=== PATIENT | female | born 1955 | race Caucasian/White ===

== ENCOUNTER 2021-06-09 12:50 | Inpatient (IN) ==
[2021-06-09 13:49] LABS: Appearance Urine Clear (Clear); Bacteria Urine Automated Negative (Negative); Bilirubin Urine Negative (Negative); Blood Urine Negative (Negative); Color Urine Yellow; Epithelial Cell Urine Auto >30 /lpf (0-5); Glucose Urine UA Negative (Negative); Ketones Urine Negative (Negative); Leukocyte Esterase Urine 3+ (Negative); Nitrite Urine Negative (Negative); Protein Urine Negative (Negative); RBC Urine Automated 0-4 /hpf (0-4); Specific Gravity Urine 1.009 (1.000-1.030); Urobilinogen Urine Negative (Negative); WBC Urine Automated >30 /hpf (0-5); pH Urine 5.5 (4.5-7.5)
[2021-06-09 14:06] LABS: Amphetamines+Metham, Urine Neg (Neg); Barbiturates, Urine Neg (Neg); Benzodiazepine, Urine Neg (Neg); Cocaine, Urine Neg (Neg); MDMA (Ecstacy), Urine Neg (Neg); Methadone, Urine Neg (Neg); Opiate, Urine Neg (Neg); Phencyclidine, Urine Neg (Neg)
--- NOTE | 2021-06-09 14:13 | XRay Report ---
XR chest 1V portable CLINICAL HISTORY: weakness TECHNIQUE: Single frontal radiograph of the chest was obtained. Comparison: Comparison is made to chest one view 04/21/2021 FINDINGS: No lines and tubes are seen. The cardiomediastinal silhouette is normal. The lungs are clear. No evid ence of pleural effusion or pneumothorax. IMPRESSION: No acute chest disease. ACT 112: Negative or not required by law. Electronically signed by: Tyrese Cruz M.D. 06/09/2021 2:12 PM
[2021-06-09 14:18] LABS: Basophils # (auto) 0.01 K/uL (0-0.2); Basophils % (auto) 0.2 %; Eosinophils # (auto) 0.09 K/uL (0-0.5); Eosinophils % (auto) 1.5 %; Hematocrit (blood only) 40.4 % (37-47); Immature Granulocytes # (auto) 0.01 K/uL (0.00-0.02); Immature Granulocytes % (auto) 0.2 %; Lymphocytes # (auto) 0.95 K/uL (1.2-3.4); Lymphocytes % (auto) 16.2 %; Mean Corpuscular Hemoglobin 30.6 pg (25-34); Mean Corpuscular Hgb Conc 34.7 g/dL (32-36); Mean Corpuscular Volume 88.4 fL (80-100); Mean Platelet Volume 11.7 fL (7.4-10.4); Monocytes # (auto) 0.27 K/uL (0.11-0.59); Monocytes % (auto) 4.6 %; Neutrophils # (auto) 4.55 K/uL (1.4-6.5); Neutrophils % (auto) 77.3 %; Platelet Count 115 K/uL (130-400); RDW Coefficient of Variation 12.6 % (11.5-14.5); RDW Standard Deviation 40.7 fL (36.4-46.3); Red Blood Count 4.57 M/uL (4.2-5.4); White Blood Count 5.88 K/uL (4.8-10.8)
--- NOTE | 2021-06-09 14:27 | Emergency Department Note ---
Impression & Plan Psychosis, Altered mental status, Hallucination, visual, Acute UTI (urinary tract infection), Hypokalemia ED Provider Note NAME: HOLA DUENAS AGE: 66 SEX: F : 1955 ARRIVES VIA: Police Cruiser INFORMANT: Patient, the police ED PROVIDER(S): Niels Yancey DO CHIEF COMPLAINT: Hallucinations HPI: The patient is a 66-year-old female who presented to emergency department for mental health evaluation. The patient was having hallucinations and thought that she was seeing relatives that were . The patient herself does not think that she is seeing anything abnormal. The patient states that she was at home when she saw somebody in the room. She describes an episode between 2 people that were in her room but they were not there. Somehow the police got involved as well as crisis. The patient was sent to the emergency department for further evaluation. The patient's son is being contacted by the case loader operator for further information. The patient herself denies having any other symptoms. She denies having any weakness or chest pain. She denies having any nausea or vomiting. She has had no recent traveling. She said no fevers. She was seen in our facility recently for similar complaints. I did review that chart. She states that she takes no outpatient medications. Sometimes she takes Anacin for headaches. ROS: See above HPI for pertinent positives & negatives. A total of 10 systems reviewed and were otherwise negative. PAST MEDICAL HISTORY: See Below PAST SURGICAL HISTORY: See Below FAMILY HISTORY: See Below SOCIAL HISTORY: See Below HOME MEDICATIONS: See Below ALLERGIES: See Below VITALS: See Below PHYSICAL EXAMINATION: GENERAL: The patient is awake and alert. The patient is mildly anxious appearing but overall comfortable. EYES: The conjunctivae are clear. The pupils are round and reactive. EARS, NOSE, MOUTH AND THROAT: The nose is without any evidence of any deformity. Poor dentition was noted. NECK: The neck is nontender and supple. RESPIRATORY: Normal respiratory effort is noted there is no evidence of wheezing rhonchi or rales CARDIOVASCULAR: Regular rate and rhythm noted there no murmurs rubs or gallops normal S1 normal S2. GASTROINTESTINAL: The abdomen is soft. Abdomen is nontender. MUSCULOSKELETAL/EXTREMITIES: There is no evidence of gross deformity full range of motion is noted in the hips and shoulders. SKIN: There is no obvious evidence of any rash. There are no petechiae, pallor or cyanosis noted. NEUROLOGIC: Patient is awake alert and oriented x3 strength is symmetric patellar reflexes are 2+ bilaterally PSYCH: The patient is awake and alert. The patient makes good eye contact overall. She does have a very tangential thought process. The patient is currently denying any suicidal homicidal ideation. MEDICAL DECISION MAKING: The patient is a 66-year-old female who presented to the emergency department for an evaluation of auditory hallucinations. The patient lives with her son in a local hotel. The patient was seen in our facility recently after a fall but also for similar complaints as today including visual hallucinations. The patient was felt to be mental health patient. Given her age and no significant history further medical clearance was obtained. I discussed the patient's laboratory and radiographic studies with her. She was found to have signs of u rinary tract infection as well as hypokalemia. Those conditions were treated in the emergency department. She was also treated with a small dose of Ativan. The patient has very poor insight into her overall condition. For this reason a 302 petition was filled out and at this time the delegate is evaluating the 302. The patient likely is not a good candidate for outpatient therapy at this time and less significant follow-up can be ensured. The patient currently does not take any medications. The patient was signed out to Dr. Fam at change of shift. Please see her note for continuation of care and further disposition. Triage Nursing notes reviewed. Prior medical records reviewed Vital Signs: reviewed and remarkable for elevated blood pressure Differential diagnosis: Mood disorder, infection, hypoglycemia, electrolyte abnormalities, cardiac sources, intracerebral event, toxicologic, trauma, neurologic, as well as other pathologies. ER treatment provided: See below Diagnostics interpreted by me: ECG: EKG was obtained in the emergency department. My interpretation is normal sinus rhythm at 61 bpm. There is no ectopy. Right bundle branch block pattern was noted. This was compared to a tracing from April 21, 2021. No changes were noted. Laboratory studies: As stated above and show below. Imaging studies: See below Consultation(s): none Past Med/Surg History Medical History Hallucination, visual Social History Smoking Status: Never smoker Preferred Language: Cymro Feels Safe at Home: Yes Allergies Allergies Allergy/AdvReac Type Severity Reaction Status Date / Time No Known Allergies Allergy Mild Unverified 04/22/21 11:07 Home Meds Home Medications Medication Instructions Recorded Confirmed aspirin-caffeine 400 mg-32 mg 1 tab PO Q6H PRN 06/09/21 06/09/21 tablet (Anacin) loratadine 10 mg tablet (Claritin) 10 mg PO DAILY 06/09/21 06/09/21 Results & Data (ED) Vital Signs Vital Signs - 24 hr 06/09/21 13:20 06/09/21 19:25 Temperature 36.8 C Temperature Source Oral Pulse Rate 86 Pulse Rate [Finger] 80 Pulse Rhythm Regular Pulse Strength Normal Respiratory Rate 20 20 Respiratory Effort / Characteristics Non-Labored Spontaneous Non-Labored Spontaneous Respiratory Depth Normal Respiratory Pattern Regular Blood Pressure 174/104 H Blood Pressure [Right Arm] 188/94 H Blood Pressure Mean 127 Blood Pressure Mean [Right Arm] 125 Blood Pressure Position Sitting Blood Pressure Position [Right Arm] Sitting Pulse Oximetry 99 98 Oxygen Delivery Method Room Air Room Air Sepsis Recent Fever Within 48 Hours No Sepsis New/Unexplained Change in Mental Status No Sepsis Action Taken by Nursing No Action Required Home Medications Current Medication List: was personally reviewed by me Laboratory Data Attestation: I reviewed the patient's lab results. Result diagrams: 06/09/21 14:00 06/09/21 14:00 Lab Results 06/09/21 06/09/21 06/09/21 Range/Units 13:15 13:15 14:00 WBC 5.88 (4.8-10.8) K/uL RBC 4.57 (4.2-5.4) M/uL Hgb 14.0 (12.0-16.0) g/dL Hct 40.4 (37-47) % MCV 88.4 (80-100) fL MCH 30.6 (25-34) pg MCHC 34.7 (32-36) g/dL RDW Std Deviation 40.7 (36.4-46.3) fL RDW Coeff of Duong 12.6 (11.5-14.5) % Plt Count 115 L (130-400) K/uL MPV 11.7 H (7.4-10.4) fL Immature Gran % (Auto) 0.2 % Neut % (Auto) 77.3 % Lymph % (Auto) 16.2 % Howell % (Auto) 4.6 % Eos % (Auto) 1.5 % Baso % (Auto) 0.2 % Neut # (Auto) 4.55 (1.4-6.5) K/uL Lymph # (Auto) 0.95 L (1.2-3.4) K/uL Howell # (Auto) 0.27 (0.11-0.59) K/uL Eos # (Auto) 0.09 (0-0.5) K/uL Baso # (Auto) 0.01 (0-0.2) K/uL Immature Gran # (Auto) 0.01 (0.00-0.02) K/uL PT (9.0-12.0) Seconds INR (0.9-1.1) APTT (21.0-31.0) Seconds PTT Ratio Sodium (136-145) mmol/L Potassium (3.5-5.1) mmol/L Chloride (98-107) mmol/L Carbon Dioxide (21-32) mmol/L Anion Gap (3-11) BUN (7-18) mg/dl Creatinine (0.6-1.2) mg/dl Est Cr Clr Drug Dosing ml/min Est GFR ( Amer) ml/min Est GFR (Non-Af Amer) ml/min BUN/Creatinine Ratio (10-20) Glucose (70-99) mg/dl Calcium (8.5-10.1) mg/dl Magnesium (1.8-2.4) mg/dl Total Bilirubin (0.2-1) mg/dl AST (15-37) U/L ALT (12-78) U/L Alkaline Phosphatase (45-117) U/L Total Creatine Kinase (26-192) U/L Troponin I (0-0.045) ng/ml Total Protein (6.4-8.2) gm/dl Albumin (3.4-5.0) gm/dl Globulin (2.5-4.0) gm/dl Albumin/Globulin Ratio (0.9-2) TSH (0.300-4.500) uIu/ml Urine Color Yellow Urine Appearance Clear (Clear) Urine pH 5.5 (4.5-7.5) Ur Specific [place] 1.009 (1.000-1.030) Urine Protein Negative (Negative) Urine Glucose (UA) Negative (Negative) Urine Ketones Negative (Negative) Urine Blood Negative (Negative) Urine Nitrite Negative (Negative) Urine Bilirubin Negative (Negative) Urine Urobilinogen Negative (Negative) Ur Leukocyte Esterase 3+ H (Negative) Urine WBC (Auto) >30 H (0-5) /hpf Urine RBC (Auto) 0-4 (0-4) /hpf U Hyaline Cast (Auto) 1-5 (0-5) /lpf U Epithel Cells (Auto) >30 H (0-5) /lpf Urine Bacteria (Auto) Negative (Negative) Urine Opiates Screen Neg (Neg) Ur Methadone, Qual Neg (Neg) Urine Barbiturates Neg (Neg) Ur Phencyclidine (PCP) Neg (Neg) U Amphetamin/Meth Scrn Neg (Neg) MDMA (Ecstasy) Screen Neg (Neg) U Benzodiazepines Scrn Neg (Neg) Ur Cocaine Metabolite Neg (Neg) U Marijuana (THC) Screen Neg (Neg) Ethyl Alcohol mg/dL (0-3) mg/dl SARS-CoV-2, RNA, NAAT (NEGATIVE) 06/09/21 06/09/21 06/09/21 Range/Units 14:00 14:00 14:00 WBC (4.8-10.8) K/uL RBC (4.2-5.4) M/uL Hgb (12.0-16.0) g/dL Hct (37-47) % MCV (80-100) fL MCH (25-34) pg MCHC (32-36) g/dL RDW Std Deviation (36.4-46.3) fL RDW Coeff of Duong (11.5-14.5) % Plt Count (130-400) K/uL MPV (7.4-10.4) fL Immature Gran % (Auto) % Neut % (Auto) % Lymph % (Auto) % Howell % (Auto) % Eos % (Auto) % Baso % (Auto) % Neut # (Auto) (1.4-6.5) K/uL Lymph # (Auto) (1.2-3.4) K/uL Howell # (Auto) (0.11-0.59) K/uL Eos # (Auto) (0-0.5) K/uL Baso # (Auto) (0-0.2) K/uL Immature Gran # (Auto) (0.00-0.02) K/uL PT 10.8 (9.0-12.0) Seconds INR 1.1 (0.9-1.1) APTT 26.2 (21.0-31.0) Seconds PTT Ratio 1.0 Sodium 140 (136-145) mmol/L Potassium 3.1 L (3.5-5.1) mmol/L Chloride 110 H (98-107) mmol/L Carbon Dioxide 24 (21-32) mmol/L Anion Gap 6.0 (3-11) BUN 7 (7-18) mg/dl Creatinine 0.90 (0.6-1.2) mg/dl Est Cr Clr Drug Dosing 52.6 ml/min Est GFR ( Amer) 76.1 ml/min Est GFR (Non-Af Amer) 65.7 ml/min BUN/Creatinine Ratio 7.9 L (10-20) Glucose 113 H (70-99) mg/dl Calcium 9.7 (8.5-10.1) mg/dl Magnesium 2.0 (1.8-2.4) mg/dl Total Bilirubin 0.5 (0.2-1) mg/dl AST 10 L (15-37) U/L ALT 14 (12-78) U/L Alkaline Phosphatase 70 (45-117) U/L Total Creatine Kinase 52 (26-192) U/L Troponin I < 0.015 (0-0.045) ng/ml Total Protein 7.5 (6.4-8.2) gm/dl Albumin 3.7 (3.4-5.0) gm/dl Globulin 3.8 (2.5-4.0) gm/dl Albumin/Globulin Ratio 1.0 (0.9-2) TSH 1.030 (0.300-4.500) uIu/ml Urine Color Urine Appearance (Clear) Urine pH (4.5-7.5) Ur Specific [place] (1.000-1.030) Urine Protein (Negative) Urine Glucose (UA) (Negative) Urine Ketones (Negative) Urine Blood (Negative) Urine Nitrite (Negative) Urine Bilirubin (Negative) Urine Urobilinogen (Negative) Ur Leukocyte Esterase (Negative) Urine WBC (Auto) (0-5) /hpf Urine RBC (Auto) (0-4) /hpf U Hyaline Cast (Auto) (0-5) /lpf U Epithel Cells (Auto) (0-5) /lpf Urine Bacteria (Auto) (Negative) Urine Opiates Screen (Neg) Ur Methadone, Qual (Neg) Urine Barbiturates (Neg) Ur Phencyclidine (PCP) (Neg) U Amphetamin/Meth Scrn (Neg) MDMA (Ecstasy) Screen (Neg) U Benzodiazepines Scrn (Neg) Ur Cocaine Metabolite (Neg) U Marijuana (THC) Screen (Neg) Ethyl Alcohol mg/dL < 3.0 (0-3) mg/dl SARS-CoV-2, RNA, NAAT (NEGATIVE) 06/09/21 Range/Units 18:07 WBC (4.8-10.8) K/uL RBC (4.2-5.4) M/uL Hgb (12.0-16.0) g/dL Hct (37-47) % MCV (80-100) fL MCH (25-34) pg MCHC (32-36) g/dL RDW Std Deviation (36.4-46.3) fL RDW Coeff of Duong (11.5-14.5) % Plt Count (130-400) K/uL MPV (7.4-10.4) fL Immature Gran % (Auto) % Neut % (Auto) % Lymph % (Auto) % Howell % (Auto) % Eos % (Auto) % Baso % (Auto) % Neut # (Auto) (1.4-6.5) K/uL Lymph # (Auto) (1.2-3.4) K/uL Howell # (Auto) (0.11-0.59) K/uL Eos # (Auto) (0-0.5) K/uL Baso # (Auto) (0-0.2) K/uL Immature Gran # (Auto) (0.00-0.02) K/uL PT (9.0-12.0) Seconds INR (0.9-1.1) APTT (21.0-31.0) Seconds PTT Ratio Sodium (136-145) mmol/L Potassium (3.5-5.1) mmol/L Chloride (98-107) mmol/L Carbon Dioxide (21-32) mmol/L Anion Gap (3-11) BUN (7-18) mg/dl Creatinine (0.6-1.2) mg/dl Est Cr Clr Drug Dosing ml/min Est GFR ( Amer) ml/min Est GFR (Non-Af Amer) ml/min BUN/Creatinine Ratio (10-20) Glucose (70-99) mg/dl Calcium (8.5-10.1) mg/dl Magnesium (1.8-2.4) mg/dl Total Bilirubin (0.2-1) mg/dl AST (15-37) U/L ALT (12-78) U/L Alkaline Phosphatase (45-117) U/L Total Creatine Kinase (26-192) U/L Troponin I (0-0.045) ng/ml Total Protein (6.4-8.2) gm/dl Albumin (3.4-5.0) gm/dl Globulin (2.5-4.0) gm/dl Albumin/Globulin Ratio (0.9-2) TSH (0.300-4.500) uIu/ml Urine Color Urine Appearance (Clear) Urine pH (4.5-7.5) Ur Specific [place] (1.000-1.030) Urine Protein (Negative) Urine Glucose (UA) (Negative) Urine Ketones (Negative) Urine Blood (Negative) Urine Nitrite (Negative) Urine Bilirubin (Negative) Urine Urobilinogen (Negative) Ur Leukocyte Esterase (Negative) Urine WBC (Auto) (0-5) /hpf Urine RBC (Auto) (0-4) /hpf U Hyaline Cast (Auto) (0-5) /lpf U Epithel Cells (Auto) (0-5) /lpf Urine Bacteria (Auto) (Negative) Urine Opiates Screen (Neg) Ur Methadone, Qual (Neg) Urine Barbiturates (Neg) Ur Phencyclidine (PCP) (Neg) U Amphetamin/Meth Scrn (Neg) MDMA (Ecstasy) Screen (Neg) U Benzodiazepines Scrn (Neg) Ur Cocaine Metabolite (Neg) U Marijuana (THC) Screen (Neg) Ethyl Alcohol mg/dL (0-3) mg/dl SARS-CoV-2, RNA, NAAT NEGATIVE (NEGATIVE) Administered Medications Discontinued Medications Cefdinir (Cefdinir 300 Mg Cap) 600 mg PO ONE STA Stop: 06/09/21 15:22 Last Admin: 06/09/21 16:08 Dose: 600 mg Documented by: [id number] Lorazepam (Lorazepam 1 Mg Tab) 1 mg PO NOW STA Stop: 06/09/21 18:50 Last Admin: 06/09/21 19:07 Dose: 1 mg Documented by: [id number] Potassium Chloride (Potassium Chloride 10 Meq Tabcr) 20 meq PO NOW STA Stop: 06/09/21 15:22 Last Admin: 06/09/21 16:08 Dose: 20 meq Documented by: [id number] Imaging Data Radiologist's Impression: Chest X-Ray 06/09/21 13:25 XR chest 1V portable CLINICAL HISTORY: weakness TECHNIQUE: Single frontal radiograph of the chest was obtained. Comparison: Comparison is made to chest one view 04/21/2021 FINDINGS: No lines and tubes are seen. The cardiomediastinal silhouette is normal. The lungs are clear. No evidence of pleural effusion or pneumothorax. IMPRESSION: No acute chest disease. ACT 112: Negative or not required by law. Electronically signed by: Tyrese Cruz M.D. 06/09/2021 2:[address] 06/09/21 13:25 CT SCAN OF THE BRAIN WITHOUT IV CONTRAST CLINICAL HISTORY: Change in mental status COMPARISON STUDY: CT of the brain dated 04/22/2021. TECHNIQUE: Unenhanced axial CT scan of the brain is performed from the vertex to the skull base. A dose lowering technique was utilized adhering to the principles of ALARA. CT DOSE: 638.56 mGycm FINDINGS: Brain parenchyma: There is minimal microangiopathic change. There is no hemorrhage, mass effect, or evidence of acute territorial ischemia by CT criteria. Bird-white matter differentiation is preserved. No extra-axial fluid collection is seen. Ventricles, sulci, cisterns: Normal in configuration. Intracranial vasculature: There is atherosclerotic calcification of the cavernous carotid and vertebral arteries. Calvarium: Unremarkable. Sinuses and mastoids: The visualized paranasal sinuses are clear. The mastoid air cells are well pneumatized. Orbits: The bony orbits are grossly intact. IMPRESSION: There is no hemorrhage, mass effect, or evidence of acute territo rial ischemia by CT criteria. ACT 112: Negative or not required by law. Electronically signed by: Perfecto Herrera M.D. 06/09/2021 3:15 PM Discharge Plan Visit Data Chief Complaint: Mental Health Evaluation Stated Complaint: MENTAL HEALTH EVAL ED Provider: Niels Yancey Discharge Problem: Psychosis, Altered mental status, Hallucination, visual, Acute UTI (urinary tract infection), Hypokalemia Patient Disposition: Still a Patient Forms Stand Alone Forms: My [facility] [employer], Suicide Prevention Resources Prescriptions Prescriptions: No Action loratadine [Claritin] 10 mg Tablet 10 mg PO DAILY RF: 0 Anacin 400-32 mg Tablet 1 tab PO Q6H PRN (Reason: Pain) RF: 0 Referrals Referrals: PCP,NO [Primary Care Provider] - Discharge Problem: Psychosis Qualifiers: Psychosis type: unspecified psychosis type Qualified Code(s): F29 - Unspecified psychosis not due to a substance or known physiological condition Altered mental status Qualifiers: Altered mental status type: unspecified Qualified Code(s): R41.82 - Altered mental status, unspecified
[2021-06-09 14:29] LABS: INR 1.1 (0.9-1.1); Partial Thromboplastin Time 26.2 Seconds (21.0-31.0); Prothrombin Time 10.8 Seconds (9.0-12.0)
[2021-06-09 14:34] LABS: Alanine Aminotransferase 14 U/L (12-78); Albumin Level 3.7 gm/dl (3.4-5.0); Aspartate Aminotransferase 10 U/L (15-37); BUN Creatinine Ratio 7.9 (10-20); Blood Urea Nitrogen 7 mg/dl (7-18); Calcium 9.7 mg/dl (8.5-10.1); Carbon Dioxide 24 mmol/L (21-32); Chloride 110 mmol/L (98-107); Creatinine Clr Calc Pharmacy 52.6 ml/min; Est GFR (African American) 76.1 ml/min; Est GFR (Non-African American) 65.7 ml/min; Glucose 113 mg/dl (70-99); Potassium 3.1 mmol/L (3.5-5.1); Sodium 140 mmol/L (136-145)
[2021-06-09 14:45] LABS: Alkaline Phosphatase 70 U/L (45-117); Bilirubin,Total 0.5 mg/dl (0.2-1); Creatine Kinase 52 U/L (26-192); Globulin 3.8 gm/dl (2.5-4.0); Total Protein 7.5 gm/dl (6.4-8.2); Troponin I < 0.015 ng/ml (0-0.045)
--- NOTE | 2021-06-09 15:16 | CT Scan Report ---
CT SCAN OF THE BRAIN WITHOUT IV CONTRAST CLINICAL HISTORY: Change in mental status COMPARISON STUDY: CT of the brain dated 04/22/2021. TECHNIQUE: Unenhanced axial CT scan of the brain is performed from the vertex to the skull base. A d ose lowering technique was utilized adhering to the principles of ALARA. CT DOSE: 638.56 mGycm FINDINGS: Brain parenchyma: There is minimal microangiopathic change. There is no hemorrhage, mass effect, or e vidence of acute territorial ischemia by CT criteria. Bird-white matter differentiation is preserved. No extra-axial fluid collection is seen. Ventricles, sulci, cisterns: Normal in configuration. Intracranial vasculature: There is atherosclerotic calcification of the cavernous carotid and vertebr al arteries. Calvarium: Unremarkable. Sinuses and mastoids: The visualized paranasal sinuses are clear. The mastoid air cells are well pneu matized. Orbits: The bony orbits are grossly intact. IMPRESSION: There is no hemorrhage, mass effect, or evidence of acute territorial ischemia by CT wally jha. ACT 112: Negative or not required by law. Electronically signed by: Perfecto Herrera M.D. 06/09/2021 3:15 PM
[2021-06-09] MEDS ORDERED: POTASSIUM CHLORIDE 10 MEQ TABCR PO STA (15:21)
[2021-06-09] MEDS ORDERED: CEFDINIR 300 MG CAP PO STA (15:21)
[2021-06-09] MEDS ORDERED: LORazepam 1 MG TAB PO STA (18:49)
[2021-06-09] MEDS ORDERED: amLODIPine BESYLATE 5 MG TAB PO ONE (20:39)
--- NOTE | 2021-06-10 03:01 | Emergency Department Note ---
ED Visit Note Patient signed out to me at change of shift. Please see Dr. Yancey's note for additional information. Patient medically clear at time of signout. Patient was started on cefdinir for urinary tract infection as well as Norvasc for some hypertension. Patient had been given 1 mg of Ativan. Patient was calm and cooperative throughout my shift. Bed search suspended overnight. Patient's next dose of cefdinir was ordered for the morning. Patient signed out to Dr. Sutherland. . : Psychosis Qualifiers: Psychosis type: unspecified psychosis type Qualified Code(s): F29 - Unspecified psychosis not due to a substance or known physiological condition Altered mental status Qualifiers: Altered mental status type: unspecified Qualified Code(s): R41.82 - Altered mental status, unspecified
--- NOTE | 2021-06-10 05:12 | Emergency Department Note ---
ED Visit Note This case was signed out to me at change of shift awaiting bed placement. The bed search was suspended. The patient rested throughout the night. Morning medications were ordered. Case will be signed out to Dr. Hamm . : Psychosis Qualifiers: Psychosis type: unspecified psychosis type Qualified Code(s): F29 - Unspecified psychosis not due to a substance or known physiological condition Altered mental status Qualifiers: Altered mental status type: unspecified Qualified Code(s): R41.82 - Altered mental status, unspecified
[2021-06-10] MEDS ORDERED: CEFDINIR 300 MG CAP PO SCH (08:00)
[2021-06-10] MEDS: amLODIPine BESYLATE 5 MG TAB PO SCH (08:36)
--- NOTE | 2021-06-10 09:34 | Emergency Department Note ---
ED Visit Note Patient previously evaluated with 302 statements and involuntary petitioning is ordered due to hallucinations. Patient was incidentally noted to have urine infections on antibiotics although it appears from records that the hallucinations have been ongoing for some time and worsening. Bed search has been in progress but has been unsuccessful. Continued bed search will continue in the morning. Given the length of her stay psychiatric consultation be ordered for continuity. Signed out pending placement. Patient has been ordered standing cefdinir after discussion with pharmacy. . : Psychosis Qualifiers: Psychosis type: unspecified psychosis type Qualified Code(s): F29 - Unspecified psychosis not due to a substance or known physiological condition Altered mental status Qualifiers: Altered mental status type: unspecified Qualified Code(s): R41.82 - Altered mental status, unspecified
--- NOTE | 2021-06-10 14:51 | Emergency Department Note ---
ED Visit Note The patient was taken in signout from Dr. Hamm at the change of shift. Please see that note for details. The patient was pending evaluation for 302 psychiatric admission. The patient was doing relatively well throughout her evening in the emergency department. She is in started to have some hallucinations of people under her bed and the olea falling in. I did evaluate the patient. She denied any significant pain no headache or chest pain. She ate well. She did have her evening dose of Zyprexa but this was only 2.5 mg. Given the hallucinations and her anxiety the patient was given a dose of Ativan as well as a second 2.5 mg dose of Zyprexa. She had done well with the Ativan and earlier dose of Zyprexa. I did note that her potassium was mildly low and she was given an oral dose of potassium. The ED psychiatric business case analyst did note that the lacey is reviewing her case currently. Her placement is still pending. The patient's case was signed out to Dr. Sutherland at the change of shift. . : Psychosis Qualifiers: Psychosis type: unspecified psychosis type Qualified Code(s): F29 - Unspecified psychosis not due to a substance or known physiological condition Altered mental status Qualifiers: Altered mental status type: unspecified Qualified Code(s): R41.82 - Altered mental status, unspecified
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
--- NOTE | 2021-06-10 18:11 | Electrocardiogram Report ---
Test Reason : Blood Pressure : / mmHG Vent. Rate : 061 BPM Atrial Rate : 061 BPM P-R Int : 164 ms QRS Dur : 122 ms QT Int : 454 ms P-R-T Axes : 079 -29 035 degrees QTc Int : 457 ms Normal sinus rhythm Right bundle branch block Abnormal ECG When compared with ECG of 21-APR-2021 23:31, No significant change was found Confirmed by Bahman Gallo ([id number]) on 06/10/2021 6:10:55 PM Referred By: REFERRED SELF Confirmed By:Bahman Gallo
[2021-06-10] MEDS: CEFDINIR 300 MG CAP PO SCH (20:26)
[2021-06-10] MEDS: OLANZAPINE 2.5 MG TAB PO SCH (20:26)
[2021-06-10] MEDS ORDERED: OLANZAPINE 2.5 MG TAB PO STA (22:31)
[2021-06-10] MEDS ORDERED: LORazepam 1 MG TAB SL STA (22:31)
[2021-06-10] MEDS ORDERED: POTASSIUM CHLORIDE CRTAB 20 MEQ TABCR PO STA (22:32)
--- NOTE | 2021-06-11 00:32 | Emergency Department Note ---
ED Visit Note This case was signed out to me at change of shift awaiting bed placement. The patient rested throughout the night. Her potassium had been low yesterday and it was replaced. The delegate will be called back given the bed search will resume. The case will be signed out to Dr. Connor at change of shift. . : Psychosis Qualifiers: Psychosis type: unspecified psychosis type Qualified Code(s): F29 - Unspecified psychosis not due to a substance or known physiological condition Altered mental status Qualifiers: Altered mental status type: unspecified Qualified Code(s): R41.82 - Altered mental status, unspecified
[2021-06-11] MEDS: amLODIPine BESYLATE 5 MG TAB PO SCH (08:39)
[2021-06-11] MEDS: CEFDINIR 300 MG CAP PO SCH ×2 (08:39→20:41)
[2021-06-11] MEDS ORDERED: OLANZAPINE 2.5 MG TAB PO STA (10:32)
[2021-06-11] MEDS ORDERED: LORazepam 1 MG TAB SL STA (10:32)
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
[2021-06-11 12:03] LABS: Basophils # (auto) 0.03 K/uL (0-0.2); Basophils % (auto) 0.6 %; Eosinophils # (auto) 0.14 K/uL (0-0.5); Eosinophils % (auto) 2.6 %; Hematocrit (blood only) 41.2 % (37-47); Lymphocytes # (auto) 1.03 K/uL (1.2-3.4); Lymphocytes % (auto) 19.4 %; Mean Corpuscular Hemoglobin 30.7 pg (25-34); Mean Corpuscular Volume 90.4 fL (80-100); Mean Platelet Volume 11.7 fL (7.4-10.4); Monocytes # (auto) 0.27 K/uL (0.11-0.59); Monocytes % (auto) 5.1 %; Neutrophils # (auto) 3.84 K/uL (1.4-6.5); Neutrophils % (auto) 72.3 %; Platelet Count 107 K/uL (130-400); RDW Coefficient of Variation 12.5 % (11.5-14.5); Red Blood Count 4.56 M/uL (4.2-5.4); White Blood Count 5.31 K/uL (4.8-10.8)
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
[2021-06-11 12:31] LABS: Albumin Globulin Ratio 0.9 (0.9-2); Albumin Level 3.4 gm/dl (3.4-5.0); BUN Creatinine Ratio 15.9 (10-20); Bilirubin,Total 0.3 mg/dl (0.2-1); Calcium 9.2 mg/dl (8.5-10.1); Creatinine Clr Calc Pharmacy 46.8 ml/min; Est GFR (African American) 66.2 ml/min; Est GFR (Non-African American) 57.2 ml/min; Globulin 3.6 gm/dl (2.5-4.0); Potassium 4.1 mmol/L (3.5-5.1)
[2021-06-11] MEDS ORDERED: diphenhydrAMINE 50 MG/ML VIAL IV ONE (13:03)
[2021-06-11] MEDS ORDERED: diphenhydrAMINE Capsule 25 MG CAP PO ONE (13:14)
[2021-06-11 13:29] LABS: Prothrombin Time 10.5 Seconds (9.0-12.0)
--- NOTE | 2021-06-11 14:10 | XRay Report ---
XR skull <4V CLINICAL HISTORY: pre-MRI TECHNIQUE: 4 views of the skull were obtained. Comparison: None available at the time of this dictation. FINDINGS: No acute fractures are identified. The sinuses are clear. There are no soft tissue abnormal ities. No radiodense foreign body is seen. IMPRESSION: No acute abnormality and no evidence of radiodense foreign body. ACT 112: Negative or not required by law. Electronically signed by: Tyrese Cruz M.D. 06/11/2021 2:09 PM
[2021-06-11 14:14] LABS: Folate (Folic Acid) 5.5 ng/ml (>5.38)
--- NOTE | 2021-06-11 14:15 | XRay Report ---
XR soft tissue neck CLINICAL HISTORY: pre-MRI TECHNIQUE: 2 views of the neck were obtained. Comparison: None available at the time of this dictation. FINDINGS: The airway is patent without evidence of abnormal narrowing. No evidence of radiodense foreign body i s seen. Degenerative changes are seen in the cervical spine. IMPRESSION: Degenerative changes without acute abnormality and in particular no evidence of foreign body. ACT 112: Negative or not required by law. Electronically signed by: Tyrese Cruz M.D. 06/11/2021 2:13 PM
--- NOTE | 2021-06-11 14:55 | Emergency Department Note ---
ED Visit Note I received this patient in signout at the change of shift from Dr. Sutherland, pending a mental health bed search. Patient was evaluated by psychiatry and felt to be suffering from a delirium, less so a psychosis as this has not cleared with olanzapine. She has recommended a medical admission with psychiatric consultation. Patient did receive 1 dose of 2.5 olanzapine and [address] Pedersen has recommended discontinuing the benzodiazepines. [facility] . : Psychosis Qualifiers: Psychosis type: unspecified psychosis type Qualified Code(s): F29 - Unspecified psychosis not due to a substance or known physiological condition Altered mental status Qualifiers: Altered mental status type: unspecified Qualified Code(s): R41.82 - Altered mental status, unspecified
--- NOTE | 2021-06-11 16:21 | Magnetic Resonance Report ---
MR brain wo con CLINICAL HISTORY: delirium TECHNIQUE: Multiplanar and multisequence MR images of the brain were obtained without intravenous con trast. Comparison: Comparison is made to CT head 06/09/2021 FINDINGS: Exam is highly limited due to patient motion. No abnormal restricted diffusion is identified. Ex vacuo ventriculomegaly and sulcal enlargement is n oted compatible with diffuse encephalomalacia. No extra axial fluid collections are seen. There are n o masses, mass effect, or midline shift. The imaged portions of the paranasal sinuses, mastoid air cells, and orbits are unremarkable. IMPRESSION: Highly limited exam. No evidence of restricted diffusion or large mass lesion. ACT 112: Negative or not required by law. Electronically signed by: Tyrese Cruz M.D. 06/11/2021 4:20 PM
[2021-06-11] MEDS ORDERED: hydrALAZINE HCL 20 MG/ML VIAL IV ONE (16:24)
[2021-06-11] MEDS ORDERED: hydrALAZINE HCL 20 MG/ML VIAL IV PRN (16:25)
[2021-06-11 18:37] LABS: Appearance Urine Clear (Clear); Bacteria Urine Automated Negative (Negative); Bilirubin Urine Negative (Negative); Blood Urine Negative (Negative); Cast Urine Automated 0 /lpf (0-5); Color Urine Yellow; Epithelial Cell Urine Auto 20-30 /lpf (0-5); Glucose Urine UA Negative (Negative); Ketones Urine Negative (Negative); Leukocyte Esterase Urine 2+ (Negative); Nitrite Urine Negative (Negative); Protein Urine Negative (Negative); RBC Urine Automated 0-4 /hpf (0-4); Specific Gravity Urine 1.008 (1.000-1.030); Urobilinogen Urine Negative (Negative); pH Urine 6.5 (4.5-7.5)
[2021-06-11] MEDS: OLANZAPINE 2.5 MG TAB PO SCH (20:41)
[2021-06-12] MEDS ORDERED: Influenza Vaccine-High Dose (Fluzone-HD) PF 65+ 0.7 ML SYR IM ONE (08:00)
[2021-06-12] MEDS: CYANOCOBALAMIN 500 MCG TABLET (VITAMIN B-12) PO SCH (10:17)
[2021-06-12] MEDS: FOLIC ACID 1 MG TAB PO SCH (10:17)
[2021-06-12] MEDS: THIAMINE HCL 100 MG TAB PO SCH (10:17)
[2021-06-12] MEDS: amLODIPine BESYLATE 5 MG TAB PO SCH (10:24)
[2021-06-12] MEDS: CEFDINIR 300 MG CAP PO SCH ×2 (10:26→20:33)
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
--- NOTE | 2021-06-12 11:48 | Communication Note ---
Date of Service: June 12, 2021 Neurology has been asked to evaluate Evelyn Roach, a 66-year-old white right- handed woman who resides in a local motel with her son and has resided in this type of environment for several years now first at the report which closed and now I believe in another motel situation. We know nothing about her past medical history she really does not frequent physicians but presented back in late March with some visual hallucinations with briefly evaluated with stabilized was found to be hypertensive and was started on some Amlodipine but did not follow-up with [facility] primary care physician She then had a fall and April but no fractures were found at that time there was no Mention made about an abnormal mental status She then presented with several days of visual hallucinations paranoid ideations with auditory hallucination and was found to have urinary tract infection was treated with Zyprexa and antibiotics but remains overtly psychotic paranoid with ongoing visual hallucinations of complex type. Psychiatry has seen her and is found no prior history of psychiatric illness although records are sparse and it is difficult to get information from the family at this point as apparently her son is the only family member with any information It is not no known whether or not she has had increasing cognitive impairment any gait instability any tremor but because of the abrupt onset of hallucinations without any clear history for a prior psychosis the possibility of a Lewy body disorder has been raised and certainly this could be the case but very difficult to evaluate in the setting of a presumptive acute urinary tract infection still on antibiotics with what appears to be a superimposed delirium She has had an MRI which was degraded by motion but shows no gross abnormalities other than some global volume loss not inconsistent with her age and some nonspecific white matter changes but no acute vascular event is seen Labs have shown hypokalemia but otherwise unremarkable, toxic screen is negative, and in early April she had a urinary tract infection with E. coli and now has recurrent infection with Gardnerella Review of systems is impossible to obtain from the patient Family history is unavailable although she tells me her son had a brain tumor (reliability of this information is questionable) she tells me her is long and she has no family members in the area except her son There is no clear history of excessive alcohol abuse that I can obtain. I do not know she is a cigarette smoker Exam reveals blood pressure 134/74 pulse of 107 respirations are 20 she is afebrile has O2 saturation 97% on room air She is sitting in a chair watching an empty television screen and convinced that there is a woman there who is "controlling her" and is very specific about woman's appearance i.e. she has blond hair, and that she is working a device with her right hand that is controlling the patient's behavior. She also states that there are several men in the room but they do not bother her and are not alarming but she is very concerned about the woman She is reasonably oriented, knows she is in the hospital knows the month is May misses a day by several does not know the date but is aware that Michelle is coming up and then Melvin. Mental status testing beyond this however was not really attempted as he was getting a little agitated and I did not want to push it any further Cranial nerves are grossly intact 5 minutes were normal facial tone strength was normal speech was clear. There is no tremor of the outstretched hands of no parkinsonian features no cogwheeling no rigidity. Reflexes were little hypoactive but she was poorly relaxed toes are downgoing strength testing was grossly intact and seen atrophy fasciculations sensory examination was very difficult. She can feel the tuning fork in the arms and legs but when I tried to test for proprioception it was clearly more than she could conceptualize. Light touch was appreciated At this point I agree this appears to be an active delirium but I also agree with psychiatry that the florid nature of her visual hallucinations are concerning for an underlying cognitive impairment issue perhaps Lewy body disorder based on statistical grounds alone. Visual hallucinations is the only manifestation of a late onset psychosis is unusual and will be most likely part of a Lewy body pathology spectrum. Right now I cannot tell if she has a REM behavior disorder as the history is unavailable she does not look to be parkinsonian but this may develop late Lewy body disease, imaging studies are unremarkable, and I think we need to treat urinary tract infection aggressively continue the antipsychotics and see if we get her back to baseline status before making any further diagnostic impressions other than a delirium I would attempt to get an EEG but I am not sure she is going to tolerate this and frankly I do not think it is at necessary but would be nice to know she does not have any periodic sharp and slow wave complexes which can be part of a prion disorder. At some point we may need to do a CT of the chest abdomen and pelvis just to be sure there is no demonstrable pulmonary or ovarian malignancy which can occasionally present with acute psychoses due to NMDA receptor antibodies but again I think she will need to be treated psychiatrically hopefully the hallucinations controlled and her behavior more easily controlled before we can get imaging studies done We will check back with her tomorrow Ankur Joy MD The above note was generated utilizing voice recognition technology and may have spelling errors punctuation errors, pronoun usage errors and syntax errors
[2021-06-12] MEDS: OLANZAPINE 2.5 MG TAB PO SCH ×2 (13:37→20:31)
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
[2021-06-13] MEDS: amLODIPine BESYLATE 5 MG TAB PO SCH (08:07)
[2021-06-13] MEDS: CEFDINIR 300 MG CAP PO SCH ×2 (08:08→20:39)
[2021-06-13] MEDS: FOLIC ACID 1 MG TAB PO SCH (08:08)
[2021-06-13] MEDS: CYANOCOBALAMIN 500 MCG TABLET (VITAMIN B-12) PO SCH (08:08)
[2021-06-13] MEDS: OLANZAPINE 2.5 MG TAB PO SCH ×2 (08:08→20:39)
[2021-06-13] MEDS: THIAMINE HCL 100 MG TAB PO SCH (08:08)
[2021-06-13] MEDS: ENOXAPARIN INJ 40 MG/0.4 ML SYR SQ SCH (08:20)
--- NOTE | 2021-06-13 10:03 | Electroencephalogram ---
EEG Procedure Note Date of Service June 13, 2021 Start / End Times Start Time: 854 End Time: 914 Referring Physician Ankur Joy MD History Visual hallucinations possible cognitive impairment question prion disorder Home Medication List Medication Instructions Recorded Confirmed Type aspirin-caffeine 400 mg-32 mg 1 tab PO Q6H PRN 06/09/21 06/09/21 History tablet (Anacin) loratadine 10 mg tablet (Claritin) 10 mg PO DAILY 06/09/21 06/09/21 History Inpatient Medication List Amlodipine Besylate (Amlodipine Besylate 5 Mg Tab) 7.5 mg PO QAM [facility] Stop: 07/12/21 08:59 Last Admin: 06/13/21 08:07 Dose: 7.5 mg Documented by: [id number] Admin: 06/12/21 10:24 Dose: 7.5 mg Documented by: [id number] Cefdinir (Cefdinir 300 Mg Cap) 300 mg PO BID [facility] Stop: 06/16/21 20:59 Last Admin: 06/13/21 08:08 Dose: 300 mg Documented by: [id number] Admin: 06/12/21 20:33 Dose: 300 mg Documented by: [id number] Admin: 06/12/21 10:26 Dose: 300 mg Documented by: [id number] Admin: 06/11/21 20:41 Dose: 300 mg Documented by: [id number] Admin: 06/11/21 08:39 Dose: 300 mg Documented by: [id number] Admin: 06/10/21 20:26 Dose: 300 mg Documented by: [id number] Cyanocobalamin (Cyanocobalamin 500 Mcg Tablet (Vitamin B-12)) [facility] [place] Stop: 07/12/21 08:59 Last Admin: 06/13/21 08:08 Dose: 1,000 mcg Documented by: [id number] Admin: 06/12/21 10:17 Dose: 1,000 mcg Documented by: [id number] Enoxaparin Sodium (Enoxaparin Inj 40 Mg/0.4 Ml Syr) 40 mg SQ QAM [facility] Stop: 07/13/21 08:59 Last Admin: 06/13/21 08:20 Dose: 40 mg Documented by: [id number] Folic Acid (Folic Acid 1 Mg Tab) 1 mg PO QAM [facility] Stop: 07/12/21 08:59 Last Admin: 06/13/21 08:08 Dose: 1 mg Documented by: [id number] Admin: 06/12/21 10:17 Dose: 1 mg Documented by: [id number] Hydralazine HCl (Hydralazine Hcl 20 Mg/Ml Vial) 5 mg IV Q6H PRN PRN Reason: Hypertension Stop: 07/11/21 16:24 Last Admin: 06/12/21 06:13 Dose: 5 mg Documented by: [id number] Olanzapine (Olanzapine 2.5 Mg Tab) 2.5 mg PO BID [facility] Stop: 07/12/21 12:29 Last Admin: 06/13/21 08:08 Dose: 2.5 mg Documented by: [id number] Admin: 06/12/21 20:31 Dose: 2.5 mg Documented by: [id number] Admin: 06/12/21 13:37 Dose: 2.5 mg Documented by: [id number] Thiamine HCl (Thiamine Hcl 100 Mg Tab) 100 mg PO QAM [facility] Stop: 07/12/21 08:59 Last Admin: 06/13/21 08:08 Dose: 100 mg Documented by: [id number] Admin: 06/12/21 10:17 Dose: 100 mg Documented by: [id number] Discontinued Medications Amlodipine Besylate (Amlodipine Besylate 5 Mg Tab) 5 mg PO NOW ONE Stop: 06/09/21 20:40 Last Admin: 06/09/21 20:54 Dose: Not Given Documented by: [id number] Amlodipine Besylate (Amlodipine Besylate 5 Mg Tab) 5 mg PO QAM [facility] Stop: 07/10/21 08:59 Last Admin: 06/11/21 08:39 Dose: 5 mg Documented by: [id number] Admin: 06/10/21 08:36 Dose: 5 mg Documented by: [id number] Cefdinir (Cefdinir 300 Mg Cap) 600 mg PO ONE STA Stop: 06/09/21 15:22 Last Admin: 06/09/21 16:08 Dose: 600 mg Documented by: [id number] Cefdinir (Cefdinir 300 Mg Cap) 300 mg PO ONE [facility] Stop: 06/15/21 07:59 Last Admin: 06/10/21 08:36 Dose: 300 mg Documented by: [id number] Diphenhydramine HCl (Diphenhydramine 50 Mg/Ml Vial) 12.5 mg IV ONE ONE Stop: 06/11/21 13:04 Last Admin: 06/11/21 13:29 Dose: Not Given Documented by: [id number] Diphenhydramine HCl (Diphenhydramine Capsule 25 Mg Cap) 25 mg PO NOW ONE Stop: 06/11/21 13:15 Last Admin: 06/11/21 13:22 Dose: 25 mg Documented by: [id number] Hydralazine HCl (Hydralazine Hcl 20 Mg/Ml Vial) 5 mg IV NOW ONE Stop: 06/11/21 16:25 Last Admin: 06/11/21 18:22 Dose: 5 mg Documented by: [id number] Influenza Virus Vaccine (Influenza Vaccine-High Dose (Fluzone-Hd) Pf 65+ 0.7 Ml Syr) 0.7 ml IM .ONCE ONE Stop: 06/12/21 08:01 Last Admin: 06/12/21 09:37 Dose: 0.7 ml Documented by: [id number] Lorazepam (Lorazepam 1 Mg Tab) 1 mg PO NOW STA Stop: 06/09/21 18:50 Last Admin: 06/09/21 19:07 Dose: 1 mg Documented by: [id number] Lorazepam (Lorazepam 1 Mg Tab) 1 mg SL NOW STA Stop: 06/10/21 22:32 Last Admin: 06/10/21 22:42 Dose: 1 mg Documented by: [id number] Lorazepam (Lorazepam 1 Mg Tab) 1 mg SL NOW STA Stop: 06/11/21 10:33 Last Admin: 06/11/21 10:40 Dose: 1 mg Documented by: [id number] Olanzapine (Olanzapine 2.5 Mg Tab) 2.5 mg PO HS [facility] Stop: 07/10/21 20:59 Last Admin: 06/11/21 20:41 Dose: 2.5 mg Documented by: [id number] Admin: 06/10/21 20:26 Dose: 2.5 mg Documented by: [id number] Olanzapine (Olanzapine 2.5 Mg Tab) 2.5 mg PO NOW STA Stop: 06/10/21 22:32 Last Admin: 06/10/21 22:53 Dose: 2.5 mg Documented by: [id number] Olanzapine (Olanzapine 2.5 Mg Tab) 2.5 mg PO NOW STA Stop: 06/11/21 10:33 Last Admin: 06/11/21 11:01 Dose: 2.5 mg Documented by: [id number] Potassium Chloride (Potassium Chloride 10 Meq Tabcr) 20 meq PO NOW STA Stop: 06/09/21 15:22 Last Admin: 06/09/21 16:08 Dose: 20 meq Documented by: [id number] Potassium Chloride (Potassium Chloride Crtab 20 Meq Tabcr) 20 meq PO NOW STA Stop: 06/10/21 22:33 Last Admin: 06/10/21 22:42 Dose: 20 meq Documented by: [id number] Description This is a 21 electrode EEG with a single channel dedicated to limited EKG. The electrodes were placed in accordance with the International 10-20 system. Current study was done as a bedside recording and is of good technical quality with few or no muscle movement artifacts. Video analysis indicates that there was very little patient movement and patient appeared to be awake. Photic stimulation was performed. Drowsiness light sleep not recorded. This addition there is a normal appearing background rhythm in the alpha range of up to 10 Hz macular frequency and 30 V maximal amplitude which is symmetrical and maximal in posterior head regions. Polymorphic modest voltage mid frequency theta activity seen centrally and symmetrically. Beta activity seen bifrontally Photic stimulation was a modest response No potentially epileptiform activity is seen and there is no evidence for complex sharp and slow wave potentials or other indicators of a potential underlying prion disorder Interpretation Normal study without evidence for focal generalized encephalopathy or potential epileptogenic activity or any other abnormal paroxysmal discharges Clinical Correlation This is a normal study there is no evidence for focal generalized encephalopathy potentially epileptogenic activity and pertinent to the clinical question no evidence for periodic sharp and slow wave complexes that might suggest a potential underlying prion disorder Myles Morataya
--- NOTE | 2021-06-13 11:48 | Psychiatric Progress Note ---
Date of Service June 13, 2021 Impression / Recommendations Impression As per Dr. Pedersen: This is a 66 yo woman with no previous psychiatric history with two presentations in the last two months for new onset visual hallucinations. Differential for unspecified psychosis includes primary psychiatric disorder such as schizophrenia but this would be highly unusual for acute onset in older age given no prior psych hx as well as no other significant negative symptoms and visual hallucinations are an uncommon presentation in primary psychiatric disorders. Differential also includes substance-induced or secondary to a medical cause. Substance-induced or substance-withdrawal is less likely in context of negative UDS but the fact that she cleared rapidly last time and suddenly developed reality-testing within a few hours suggests she may be using a substance that is not showing up on the UDS. A medical cause including delirium can often present with visual hallucinations and her low potassium or UTI could certainly cause this, especially at her age. Other possibilities including start of some type of neurocognitive disorder such as lewy body dementia which can first present with visual hallucinations, no other sign of significant memory impairment but this tends to be a more insidious onset rather than abrupt. 06/13/21: agree that presentation of AMS is most likely delirium superimposed on underlying cognitive difficulties rather than a primary psychotic process, neuro work up ongoing as word finding difficulties and new onset alvarez. (1) Acute UTI (urinary tract infection): (2) Hallucination, visual: continue Zyprexa 2.5 mg BID as ordered, may shift pm dose to earlier as suspect sundowning cooperating with medical care and improving and given lack of primary psychosis/sheila agree with not pursuing a 303 commitment but will need input from son re: safe discharge disposition. Risk Factors Assessment : Yes Do You Have Access To A Gun?: No Previous Attempt: No Family History of Suicide: No Previous Psychiatric Hospitalization: No Hopelessness: No Smoker: No Protective Factors Assessment Employed: No Supportive Family: Yes Interval History Identifying Information 66 yo woman with no known prior psychiatric history who presented to the ED for the second time in two months for visual hallucinations. Psychiatry was consulted for diagnostic clarification and management recommendations. She was seen on 06/10/[address] Pedersen. Chief Complaint ongoing confusion at times. Review of Systems Notes patient denies Subjective Subjective Patient was seen & assessed and interval progress reviewed with nursing. Coopera tive with Zyprexa. Pleasant on days. Will ask about seeing men with guns, typically on pms. Eye sight seems poor in low light. Confused a staff's white name tag for a phone (or perhaps word finding difficulties). Neurology following, just at EEG. 1-on-1 as active 302 not due to agitation and patient continues to deny thoughts to harm self or others. Physical Exam Psychiatric Orientation: alert and oriented to person; + not oriented to place Apperance: appropriately dressed and + disheveled Eye Contact: + fair eye contact Motor Behavior: no abnormal motor movements and + tremor (very slight resting tremor in left hand); n EPS Speech: + abnormal rate/rhythm/volume of speech (halted due to work finding difficulties.) Affect: euthymic affect Mood: no irritable mood Thought Process: + tangential thought process Thought Content: not paranoid and no delusions Suicidal Thoughts: denies suicidal thoughts Homicidal Thoughts: denies homicidal thoughts Hallucinations: no auditory hallucinations and no visual hallucinations Cognition: + recent memory not intact, + attention not intact and + language not intact (some word finding difficulties) Insight: + impaired insight Judgement: + impaired judgement Vital Signs (Past 24 Hours) Last Vital Signs Temp 36.3 C L 06/13/21 07:33 Pulse 81 06/13/21 08:03 Resp 16 06/13/21 07:33 BP 164/76 H 06/13/21 08:03 Pulse Ox 96 06/13/21 07:33 Results & Data ([facility]) Laboratory Results Laboratory Results - last 24 hr 06/11/21 12:49 Hepatitis C Ab Screen Neg Current Inpatient Medications Current Inpatient Medications: Current Inpatient Medications Amlodipine Besylate (Amlodipine Besylate 5 Mg Tab) 7.5 mg PO QAM [facility] Stop: 07/12/21 08:59 Last Admin: 06/13/21 08:07 Dose: 7.5 mg Documented by: Cefdinir (Cefdinir 300 Mg Cap) 300 mg PO BID [facility] Stop: 06/16/21 20:59 Last Admin: 06/13/21 08:08 Dose: 300 mg Documented by: Cyanocobalamin (Cyanocobalamin 500 Mcg Tablet (Vitamin B-12)) 1,000 mcg PO QAM [facility] Stop: 07/12/21 08:59 Last Admin: 06/13/21 08:08 Dose: 1,000 mcg Documented by: Enoxaparin Sodium (Enoxaparin Inj 40 Mg/0.4 Ml Syr) [facility] Stop: 07/13/21 08:59 Last Admin: 06/13/21 08:20 Dose: 40 mg Documented by: Folic Acid (Folic Acid 1 Mg Tab) [facility] [place] Stop: 07/12/21 08:59 Last Admin: 06/13/21 08:08 Dose: 1 mg Documented by: Hydralazine HCl (Hydralazine Hcl 20 Mg/Ml Vial) 5 mg IV Q6H PRN PRN Reason: Hypertension Stop: 07/11/21 16:24 Last Admin: 06/12/21 06:13 Dose: 5 mg Documented by: Olanzapine (Olanzapine 2.5 Mg Tab) 2.5 mg PO BID [facility] Stop: 07/12/21 12:29 Last Admin: 06/13/21 08:08 Dose: 2.5 mg Documented by: Thiamine HCl (Thiamine Hcl 100 Mg Tab) 100 mg PO [facility] Stop: 07/12/21 08:59 Last Admin: 06/13/21 08:08 Dose: 100 mg Documented by:
--- NOTE | 2021-06-13 16:21 | Communication Note ---
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 She is a little vague about how long she has been here but does not the hospital and really cannot seem to come up with the name of her current place of residence which is one of the local [facility]. EEG is normal shows no evidence for a focal or generalized encephalopathy and more importantly shows nothing to indicate periodic sharp and slow wave complexes which on occasion are marker of a prion disorder such as CJ disease in which visual hallucinations may be a manifestation early on I certainly cannot exclude Lewy body dementia and it I suspect there may be elements of this but we do not see any classic bradykinesia or rigidity or any parkinsonian features and I do not havea history of a REM behavior disorder as we have not been able to contact family members. Another option of course would be a paraneoplastic syndrome associated with ov neftali or other carcinomas with NMDA receptor antibodies and which of florid psychosis with visual and auditory hallucinations may also be an initial manifestation. This usually is in younger women in association with ovarian teratomas but can present in older individuals as well Psychiatry continues to evaluate her and offer treatment and hopefully the psychosis will begin to resolve with tincture of time and appropriate medications and treatment of urinary tract infection but I think there is an underlying neurologic issue here obviously I would suggest that a CAT scan of the chest abdomen pelvis be done with and without contrast this to address the possibility that there is an underlying detectable neoplasm. I will defer to her attending physician regarding scheduling the imaging studies and will check back with her tomorrow Ankur Joy MD
--- NOTE | 2021-06-13 18:10 | Hospitalist Progress Note ---
Date of Service June 13, 2021 Assessment & Plan (1) Delirium: Plan: Pt has not improved with treatment of UTI and addition of Zyprexa B12, folate were checked and low, started replacement supplementation and added thiamine empirically. Brain MRI performed and limited but overall negative. Zyprexa increased to BID per psych recommendations and she reports that she is tolerating this well Neuro also on board and considering EEG and CT c/a/p- Appreciate neurology input and recommendation. EEG has been pending Clinically she remains stable and remains pleasantly confused (2) Hallucination, visual: Plan: These appear to be controlled, she is reporting "they" are stealing her money. She uses alot of pronouns and cannot quite define what the issue is but is bothered by it. Psychiatric input and recommendation (3) Acute UTI (urinary tract infection): Plan: Cont cefdinir pending culture results. Urine culture is preliminarily negative. Patient is asymptomatic. Await final read and likely stop abx. Urine is growing 3 types of organisms-we will discontinue antibiotic (4) Hypertension: Plan: BP 207/85 in the ER and has come down. Amlodipine also started this admission. Will continue for now. Blood pressure is controlled (5) B12 deficiency: Plan: replacement with B12 started today We will continue B12 replacement (6) Folate deficiency: Plan: started daily folic acid, empirically started thiamine. (7) DVT prophylaxis: Plan: Lovenox Full Code Dispo-remain hospitalized pending completion of workup. Patient lives in a motel. Has a son who is local. Admission and Anticipated Discharge Date Admission Date: June 12, 2021 Subjective 06/13/2021 The patient was seen and examined in medical floor She has been stable but he still pleasantly confused Does have hallucination at times Denies any acute distress Review of Systems Review of Systems: Unobtainable due to cognitive status Physical Exam Physical Exam: Lying in bed without any acute distress Constitutional: well developed, well nourished, + ill appearing and average body habitus Eyes: PERRL, conjunctivae normal, anicteric sclerae ENMT: external ear and nose normal, oropharynx normal Neck: trachea midline, no thyromegaly Respiratory: no respiratory distress and no cough Auscultation: lungs clear to auscultation bilaterally Cardiovascular: Rate/Rhythm: regular rate and regular rhythm; not tachycardic Heart Sounds: normal S1 and normal S2; no murmur Extremities: no edema Gastrointestinal (Abdomen): Inspection/Auscultation: abdomen not distended Percussion/Palpation: abdomen soft; abdomen nontender Musculoskeletal: No acute arthritis in any joint Neurologic: Alert and awake. Pleasantly confused Lymphatic: no cervical or axillary lymphadenopathy Results & Data Results & Data ([facility]) Vital Signs (Past 12 Hours) Vital Signs Temp Pulse Resp BP Pulse Ox 06/13/21 14:42 37.1 C 87 16 145/73 H 97 06/13/21 11:44 90 14 131/74 95 06/13/21 08:03 81 164/76 H 06/13/21 07:33 36.3 C L 82 16 161/79 H 96 Medications Administered Current Inpatient Medications Amlodipine Besylate (Amlodipine Besylate 5 Mg Tab) [facility] [place] [facility] [place] Stop: 07/12/21 08:59 Last Admin: 06/13/21 08:07 Dose: 7.5 mg Documented by: Cefdinir (Cefdinir 300 Mg Cap) 300 mg PO BID [facility] Stop: 06/16/21 20:59 Last Admin: 06/13/21 08:08 Dose: 300 mg Documented by: Cyanocobalamin (Cyanocobalamin 500 Mcg Tablet (Vitamin B-12)) 1,000 mcg PO QAM [facility] Stop: 07/12/21 08:59 Last Admin: 06/13/21 08:08 Dose: 1,000 mcg Documented by: Enoxaparin Sodium (Enoxaparin Inj 40 Mg/0.4 Ml Syr) 40 [facility] [place] [facility] [place]: 07/13/21 08:59 Last Admin: 06/13/21 08:20 Dose: 40 mg Documented by: Folic Acid (Folic Acid 1 Mg Tab) 1 mg PO QAM [facility] Stop: 07/12/21 08:59 Last Admin: 06/13/21 08:08 Dose: 1 mg Documented by: Hydralazine HCl (Hydralazine Hcl 20 Mg/Ml Vial) 5 mg IV Q6H PRN PRN Reason: Hypertension Stop: 07/11/21 16:24 Last Admin: 06/12/21 06:13 Dose: 5 mg Documented by: Olanzapine (Olanzapine 2.5 Mg Tab) 2.5 mg PO BID [facility] Stop: 07/12/21 12:29 Last Admin: 06/13/21 08:08 Dose: 2.5 mg Documented by: Thiamine HCl (Thiamine Hcl 100 Mg Tab) 100 mg PO [facility] Stop: 07/12/21 08:59 Last Admin: 06/13/21 08:08 Dose: 100 mg Documented by: (1) Hypertension Hypertension type: other secondary hypertension Qualified Code(s): I15.8 - Other secondary hypertension
[2021-06-14] MEDS: ENOXAPARIN INJ 40 MG/0.4 ML SYR SQ SCH (08:58)
[2021-06-14] MEDS: THIAMINE HCL 100 MG TAB PO SCH (08:58)
[2021-06-14] MEDS: CYANOCOBALAMIN 500 MCG TABLET (VITAMIN B-12) PO SCH (08:58)
[2021-06-14] MEDS: FOLIC ACID 1 MG TAB PO SCH (08:58)
[2021-06-14] MEDS: CEFDINIR 300 MG CAP PO SCH ×2 (08:58→20:12)
[2021-06-14] MEDS: amLODIPine BESYLATE 5 MG TAB PO SCH (08:59)
[2021-06-14] MEDS: OLANZAPINE 2.5 MG TAB PO SCH ×2 (08:59→20:12)
[2021-06-14] MEDS: SODIUM CHLORIDE 0.9% 1000ML 1,000 ML IV SCH ×2 (10:39→23:54)
--- NOTE | 2021-06-14 11:06 | Communication Note ---
Date of Service: June 14, 2021 The patient remains pleasant, denies hallucinations today, no agitation or periods of disorganized behavior on chart review per nursing. Son reconfirmed history and denied safety concerns re: return home per liaison. From a psychiatric standpoint there is no criteria for ongoing commitment and she can be discharged from medical floor when medically cleared. Given this is second hospitalization recently for hallucinations related to unspecified delirium superimposed on underlying cognitive changes would suggest continuing Zyprexa for a month under direction of PCP ([facility] senior care specialist facilitating) with likely taper at that time. Would suggest hs dose for a period of a few more weeks to ensure no recurrence unless other medical reason to taper more quickly (change in blood sugar, emerging EPS, or hypotension, etc). If symptoms recur or new symptoms suggest psychiatric consultation as outpatient per [facility].
--- NOTE | 2021-06-14 16:01 | Communication Note ---
Date of Service: June 14, 2021 Evelyn was seen today and was receiving IV fluids prior to her CT scan of the chest abdomen pelvis that I had suggested as part of a paraneoplastic search She still hallucinating is delusional is cooperative and now tells me that she may have had these hallucinations for quite a number of years onset several years after her and this apparently is about 15 years ago. I am not sure how reliable this is but implies that he may have had a low-grade psychosis for longer than we are assuming and was simply controlling it or was in a situation where this type of behavior was not felt to be that aberrant. Things may have worsened with a urinary tract infection and I certainly have not returned to what I consider adequate baseline behavior despite increasing doses of atypical neuroleptics I am not sure what ever going to get a clear history until her son to be contacted and we can get a little more information regarding what her baseline mental status and been over the past several years and whether or not the hallucinations are indeed new phenomenon or something that peers intermittently and has been present in this form for several years at least Right now neurology does not have a lot more to offer other than our recommendations to get the CT of the chest abdomen pelvis to be certain there is no obvious neoplasm that might be responsible for a paraneoplastic psychosis with visual hallucinations. We have little evidence to suggest an underlying prion disorder with an essentially negative MRI for the typical changes C's and normal EEG and if this is Lewy body dementia then there is very little else to do other than control of psychosis and consider adding some Aricept which in theory may help some of the behavioral issues I am going to continue to check her chart and psychiatry notes but at this point and only go to recommend that she be seen as an outpatient in our neurology clinic once for psychosis was stabilized with appropriate medications and at a time when a family member can accompany her and provide a more adequate history Ankur Joy MD
[2021-06-14] MEDS ORDERED: OPTIRAY 320 100ml IV ONE (16:46)
--- NOTE | 2021-06-14 17:18 | CT Scan Report ---
CT chest diagnostic w con CLINICAL HISTORY: Evaluate for possible malignancy. Patient confused. COMPARISON STUDY: No previous studies for comparison. TECHNIQUE: Standard CT of the Chest was performed with IV contrast. A dose lowering technique was u tilized adhering to the principles of ALARA. Contrast Volume: Optiray 320, 98 ml FINDINGS: Oral contrast given for CT of the abdomen is still seen within a mild a dilated esophagus. The findings are characteristic of esophageal dysmotility. No esophageal masses are identified. Airway: The airway is clear. No endobronchial lesion is identified. Lungs: The lungs are clear of acute alveolar opacities, air bronchograms or pulmonary nodules. Pleura: There is no evidence for pleural effusion. There is no evidence for pneumothorax. Mediastinum: There is no evidence for pathologic adenopathy. The heart size is within normal limits. Coronary artery calcification is present. The thoracic aorta is within normal limits. There is eviden ce for small pericardial effusion/thickening. Osseous structures: There is no acute osseous pathology. Prominent degenerative changes are seen with in the thoracic spine. IMPRESSION: 1. No acute chest disease. 2. Coronary artery calcification. 3. There is dilatation of the esophagus with oral contrast present within it characteristic of esopha geal dysmotility. No gross esophageal mass is identified. ACT 112: Negative or not required by law. Electronically signed by: Jun Doherty M.D. 06/14/2021 5:17 PM
--- NOTE | 2021-06-14 17:28 | CT Scan Report ---
ABDOMEN AND PELVIS CT WITH IV AND ORAL CONTRAST CT DOSE: 1127.98 mGy.cm HISTORY: Acute generalized abdominal pain r/o malignancy TECHNIQUE: Multiaxial CT images of the abdomen and pelvis were performed following the IV administrat ion of 98 cc of Optiray and oral contrast. A dose lowering technique was utilized adhering to the pr inciples of MARIAN. COMPARISON STUDY: Chest CT of same day FINDINGS: Mild to moderate cardiomegaly with extensive coronary artery calcifications. Trace pericardial effusi on. Trace pleural effusions. The lung bases are generally clear. No pneumatosis or pneumoperitoneum. The spleen is mildly enlarged measuring up to 13.5 cm in length. Mild generalized pancreatic atrophy. The adrenal glands and liver are within normal limits. Moderately distended gallbladder. No associat ed wall thickening, cholelithiasis or pericholecystic infiltration identified. No biliary ductal dila tion. Unremarkable kidneys. No hydronephrosis. Probable cyst of the interpolar right kidney, 7 mm. No hydro nephrosis. Mild urinary bladder distention. There is diffuse heterogeneity of the uterus with suggest ion of numerous uterine fibroids. There is a complex cystic lesion of the left adnexal distribution w hich measures 8.6 x 9.0 x 8.3 cm containing areas of mural nodular calcification. Atherosclerosis of the aorta without aneurysm. No adenopathy. Enteric contrast within the distal esophagus. No bowel obstruction or bowel wall thickening. Moderate fecal retention. Normal appendix. 7 mm nodular density of the right lower quadrant mesentery, possib ly a small lymph node. Unremarkable soft tissues. No acute fracture. Degenerative changes of the spin e, pelvis and hips. The mineralized appearance of the bones. IMPRESSION: 1. Complex cystic mass of the left hemipelvis measuring up to 9 cm with mural nodular calcification i s suspicious for an ovarian epithelial neoplasm. Correlation with gynecologic surgical consultation r ecommended. 2. Suggested fibroid uterus. 3. No bowel obstruction or bowel wall thickening. 4. Moderate fecal retention. 5. Trace pleural effusions. 6. Additional findings as above. ACT 112: Negative or not required by law. The above report was generated using voice recognition software. It may contain grammatical, syntax o r spelling errors. Electronically signed by: Pio Oreilly M.D. 06/14/2021 5:27 PM
--- NOTE | 2021-06-14 17:37 | Hospitalist Progress Note ---
Date of Service June 14, 2021 Assessment & Plan (1) Delirium: Plan: Pt has not improved with treatment of UTI and addition of Zyprexa B12, folate were checked and low, started replacement supplementation and added thiamine empirically. Brain MRI performed and limited but overall negative. Zyprexa increased to BID per psych recommendations and she reports that she is tolerating this well Neuro also on board and considering EEG and CT c/a/p- Appreciate neurology input and recommendation. 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 She uses alot of pronouns and cannot quite define what the issue is but is bothered by it. Psychiatric input and recommendation Still has significant hallucinations specially when nobody is around her Remains pleasantly confused (3) Acute UTI (urinary tract infection): Plan: Cont cefdinir pending culture results. Urine culture is preliminarily negative. Patient is asymptomatic. Await final read and likely stop abx. Urine is growing 3 types of organisms-we will discontinue antibiotic (4) Hypertension: Plan: BP 207/85 in the ER and has come down. Amlodipine also started this admission. Will continue for now. Blood pressure is controlled (5) B12 deficiency: Plan: replacement with B12 started today We will continue B12 replacement (6) Folate deficiency: Plan: started daily folic acid, empirically started thiamine. (7) DVT prophylaxis: Plan: Lovenox Full Code Dispo-remain hospitalized pending completion of workup. Patient lives in a motel. Has a son who is local. Admission and Anticipated Discharge Date Admission Date: June 12, 2021 Subjective 06/13/2021 The patient was seen and examined in medical floor She has been stable but he still pleasantly confused Does have hallucination at times Denies any acute distress 06/14/2021 The patient was seen and examined in medical floor She was hallucinating following checking of one-to-one sitter early this morning She is confused with a one-to-one sitter now and he still has mild hallucination Denies any acute distress Review of Systems Review of Systems: All systems reviewed and negative except as indicated above Physical Exam Physical Exam: Lying in bed without any acute distress Constitutional: well developed, well nourished, + ill appearing and average body habitus Eyes: PERRL, conjunctivae normal, anicteric sclerae ENMT: external ear and nose normal, oropharynx normal Neck: trachea midline, no thyromegaly Respiratory: no respiratory distress and no cough Auscultation: lungs clear to auscultation bilaterally Cardiovascular: Rate/Rhythm: regular rate and regular rhythm; not tachycardic Heart Sounds: normal S1 and normal S2; no murmur Extremities: no edema Gastrointestinal (Abdomen): Inspection/Auscultation: abdomen not distended Percussion/Palpation: abdomen soft; abdomen nontender Neurologic: Alert and awake. Pleasantly confused. Still has mild hallucinations Lymphatic: no cervical or axillary lymphadenopathy Results & Data Results & Data ([facility]) Vital Signs (Past 12 Hours) Vital Signs Temp Pulse Resp BP Pulse Ox 06/14/21 14:57 36.8 C 79 20 153/73 H 100 06/14/21 11:49 36.2 C L 159/64 H 06/14/21 11:32 80 16 150/74 H 99 06/14/21 08:02 156/77 H 06/14/21 07:33 36.4 C L 71 14 165/[address] scan of the abdomen and pelvis did show 9 cm complex ovarian mass suggestive of epithelial neoplasm CT of the chest did not show any significant abnormality Medications Administered Current Inpatient Medications Amlodipine Besylate (Amlodipine Besylate 5 Mg Tab) [facility] Stop: 07/12/21 08:59 Last Admin: 06/14/21 08:59 Dose: 7.5 mg Documented by: Cefdinir (Cefdinir 300 Mg Cap) 300 mg PO BID LORENZA Stop: 06/16/21 20:59 Last Admin: 06/14/21 08:58 Dose: 300 mg Documented by: Cyanocobalamin (Cyanocobalamin 500 Mcg Tablet (Vitamin B-12)) 1,000 mcg PO QAM LORENZA Stop: 07/12/21 08:59 Last Admin: 06/14/21 08:58 Dose: 1,000 mcg Documented by: Enoxaparin Sodium (Enoxaparin Inj 40 Mg/0.4 Ml Syr) 40 mg SQ QAM LORENZA Stop: 07/13/21 08:59 Last Admin: 06/14/21 08:58 Dose: 40 mg Documented by: Folic Acid (Folic Acid 1 Mg Tab) 1 mg PO QAM LORENZA Stop: 07/12/21 08:59 Last Admin: 06/14/21 08:58 Dose: 1 mg Documented by: Hydralazine HCl (Hydralazine Hcl 20 Mg/Ml Vial) 5 mg IV Q6H PRN PRN Reason: Hypertension Stop: 07/11/21 16:24 Last Admin: 06/12/21 06:13 Dose: 5 mg Documented by: Sodium Chloride (Nss 1000ml) 1,000 mls @ 80 mls/hr IV .[id number] LORENZA Stop: 06/15/21 23:59 Last Infusion: 06/14/21 17:04 Dose: 80 mls/hr Documented by: Olanzapine (Olanzapine 2.5 Mg Tab) 2.5 mg PO BID LORENZA Stop: 07/12/21 12:29 Last Admin: 06/14/21 08:59 Dose: 2.5 mg Documented by: Thiamine HCl (Thiamine Hcl 100 Mg Tab) 100 mg PO QAM LORENZA Stop: 07/12/21 08:59 Last Admin: 06/14/21 08:58 Dose: 100 mg Documented by: (1) Hypertension Hypertension type: other secondary hypertension Qualified Code(s): I15.8 - Other secondary hypertension
[2021-06-15] MEDS ORDERED: OLANZapine 10 MG/2.1 ML SDV IM PRN (01:23)
[2021-06-15] MEDS: amLODIPine BESYLATE 5 MG TAB PO SCH (08:42)
[2021-06-15] MEDS: OLANZAPINE 2.5 MG TAB PO SCH ×2 (08:43→19:04)
[2021-06-15] MEDS: CEFDINIR 300 MG CAP PO SCH ×2 (08:44→19:33)
[2021-06-15] MEDS: CYANOCOBALAMIN 500 MCG TABLET (VITAMIN B-12) PO SCH (08:45)
[2021-06-15] MEDS: FOLIC ACID 1 MG TAB PO SCH (08:45)
[2021-06-15] MEDS: THIAMINE HCL 100 MG TAB PO SCH (08:45)
[2021-06-15] MEDS: ENOXAPARIN INJ 40 MG/0.4 ML SYR SQ SCH (08:46)
--- NOTE | 2021-06-15 11:53 | Consultation ---
Date of Consultation June 15, 2021 Assessment & Plan (1) Pelvic mass in female: CA 125, CEA, CA19-[address] plan [address] Dr[address] Jones Will need exp. lap in [facility] if a surgical candidate due to possibility of ovarian malignancy. This has likely been present for some time. No ascites so will wait for tumor markers to come back before a decision is made regarding necessity and urgency for surgery. History of Present Illness Requesting Physician: Dr. Jones Reason for Consultation: pelvic mass Attending Physician: Yuniel Jones MD History of Present Illness 66 F P2002 post-menopausal with an incidental ovarian mass noted on CT scan done yesterday. Multiple uterine fibroids noted along with complex cystic mass of left ovary suspicious for ovarian malignancy. No ascites. Small pleulqr effusion. patient is not a very good historian and is somewhat confused with possible dementia. No prior access developer history per patient. No HRT. Allergies Allergy/AdvReac Type Severity Reaction Status Date / Time No Known Allergies Allergy Mild Unverified 04/22/21 11:07 Home Medications Medication Instructions Recorded Confirmed Type aspirin-caffeine 400 mg-32 mg 1 tab PO Q6H PRN 06/09/21 06/09/21 History tablet (Anacin) loratadine 10 mg tablet (Claritin) 10 mg PO DAILY 06/09/21 06/09/21 History Patient History Medical History Hallucination, visual Social History Smoking Status: Never smoker Hx Alcohol Use: No Hx Substance Use: No Preferred Language: [place] Communication Ability: Effective City Controller Required: No Beliefs That Will Affect Care: None marital status: Single Current Living Situation: Family Current Living Situation Comment: son How many Children do You have: 2 Other Information That Helps Us Care for You: No Feels Safe at Home: Yes Safety Concerns: Feels Safe At This Time Assistive Devices: None Review of Systems Review of Systems: All systems reviewed & are unremarkable except as noted in HPI & below Physical Exam Constitutional: WD/WN, vitals as above + ill appearing, + altered mental status, + frail appearing and + disheveled Gastrointestinal (Abdomen): normal bowel sounds, soft, nontender, no hepatosplenomegaly Inspection/Auscultation: abdomen normal to inspection Percussion/Palpation: abdomen soft No pain on exam. No rebound or guarding. No palpable masss. Skin: no rashes, warm and dry Results & Data ([facility]) Vital Signs (Past 12 Hours) Vital Signs Temp Pulse Resp BP Pulse Ox 06/15/21 06:38 37.2 C 76 18 152/77 H 95 Laboratory Results 06/09/21 06/09/21 06/09/21 13:15 13:15 14:00 WBC 5.88 RBC 4.57 Hgb 14.0 Hct 40.4 MCV 88.4 MCH 30.6 MCHC 34.7 RDW Std Deviation 40.7 RDW Coeff of Duong 12.6 Plt Count 115 L MPV 11.7 H Immature Gran % (Auto) 0.2 Neut % (Auto) 77.3 Lymph % (Auto) 16.2 [place] % (Auto) 4.6 Eos % (Auto) 1.5 Baso % (Auto) 0.2 Neut # (Auto) 4.55 Lymph # (Auto) 0.95 L [place] # (Auto) 0.27 Eos # (Auto) 0.09 Baso # (Auto) 0.01 Immature Gran # (Auto) 0.01 PT INR APTT PTT Ratio Sodium Potassium Chloride Carbon Dioxide Anion Gap BUN Creatinine Est Cr Clr Drug Dosing Est GFR ( Amer) Est GFR (Non-Af Amer) BUN/Creatinine Ratio Glucose Calcium Magnesium Total Bilirubin AST ALT Alkaline Phosphatase Ammonia Total Creatine Kinase Troponin I Total Protein Albumin Globulin Albumin/Globulin Ratio Vitamin B12 Folate TSH Urine Color Yellow Urine Appearance Clear Urine pH 5.5 Ur Specific [place] 1.009 Urine Protein Negative Urine Glucose (UA) Negative Urine Ketones Negative Urine Blood Negative Urine Nitrite Negative Urine Bilirubin Negative Urine Urobilinogen Negative Ur Leukocyte Esterase 3+ H Urine WBC (Auto) >30 H Urine RBC (Auto) 0-4 U Hyaline Cast (Auto) 1-5 U Epithel Cells (Auto) >30 H Urine Bacteria (Auto) Negative Urine Opiates Screen Neg Ur Methadone, Qual Neg Urine Barbiturates Neg Ur Phencyclidine (PCP) Neg U Amphetamin/Meth Scrn Neg MDMA (Ecstasy) Screen Neg U Benzodiazepines Scrn Neg Ur Cocaine Metabolite Neg U Marijuana (THC) Screen Neg Ethyl Alcohol mg/dL RPR Hepatitis C Ab Screen SARS-CoV-2, RNA, NAAT Ref Lab Test Result 06/09/21 06/09/21 06/09/21 14:00 14:00 14:00 WBC RBC Hgb Hct MCV MCH MCHC RDW Std Deviation RDW Coeff of Duong Plt Count MPV Immature Gran % (Auto) Neut % (Auto) Lymph % (Auto) [place] % (Auto) Eos % (Auto) Baso % (Auto) Neut # (Auto) Lymph # (Auto) [place] # (Auto) Eos # (Auto) Baso # (Auto) Immature Gran # (Auto) PT 10.8 INR 1.1 APTT 26.2 PTT Ratio 1.0 Sodium 140 Potassium 3.1 L Chloride 110 H Carbon Dioxide 24 Anion Gap 6.0 BUN 7 Creatinine 0.90 Est Cr Clr Drug Dosing 52.6 Est GFR ( Amer) 76.1 Est GFR (Non-Af Amer) 65.7 BUN/Creatinine Ratio 7.9 L Glucose 113 H Calcium 9.7 Magnesium 2.0 Total Bilirubin 0.5 AST 10 L ALT 14 Alkaline Phosphatase 70 Ammonia Total Creatine Kinase 52 Troponin I < 0.015 Total Protein 7.5 Albumin 3.7 Globulin 3.8 Albumin/Globulin Ratio 1.0 Vitamin B12 Folate TSH 1.030 Urine Color Urine Appearance Urine pH Ur Specific [place] Urine Protein Urine Glucose (UA) Urine Ketones Urine Blood Urine Nitrite Urine Bilirubin Urine Urobilinogen Ur Leukocyte Esterase Urine WBC (Auto) Urine RBC (Auto) U Hyaline Cast (Auto) U Epithel Cells (Auto) Urine Bacteria (Auto) Urine Opiates Screen Ur Methadone, Qual Urine Barbiturates Ur Phencyclidine (PCP) U Amphetamin/Meth Scrn MDMA (Ecstasy) Screen U Benzodiazepines Scrn Ur Cocaine Metabolite U Marijuana (THC) Screen Ethyl Alcohol mg/dL < 3.0 RPR Hepatitis C Ab Screen SARS-CoV-2, RNA, NAAT Ref Lab Test Result 06/09/21 06/09/21 06/11/21 14:00 18:07 11:53 WBC 5.31 RBC 4.56 Hgb 14.0 Hct 41.2 MCV 90.4 MCH 30.7 MCHC 34.0 RDW Std Deviation 41.0 RDW Coeff of Duong 12.5 Plt Count 107 L MPV 11.7 H Immature Gran % (Auto) 0.0 Neut % (Auto) 72.3 Lymph % (Auto) 19.4 [place] % (Auto) 5.1 Eos % (Auto) 2.6 Baso % (Auto) 0.6 Neut # (Auto) 3.84 Lymph # (Auto) 1.03 L [place] # (Auto) 0.27 Eos # (Auto) 0.14 Baso # (Auto) 0.03 Immature Gran # (Auto) 0.00 PT INR APTT PTT Ratio Sodium Potassium Chloride Carbon Dioxide Anion Gap BUN Creatinine Est Cr Clr Drug Dosing Est GFR ( Amer) Est GFR (Non-Af Amer) BUN/Creatinine Ratio Glucose Calcium Magnesium Total Bilirubin AST ALT Alkaline Phosphatase Ammonia Total Creatine Kinase Troponin I Total Protein Albumin Globulin Albumin/Globulin Ratio Vitamin B12 Folate TSH Urine Color Urine Appearance Urine pH Ur Specific [place] Urine Protein Urine Glucose (UA) Urine Ketones Urine Blood Urine Nitrite Urine Bilirubin Urine Urobilinogen Ur Leukocyte Esterase Urine WBC (Auto) Urine RBC (Auto) U Hyaline Cast (Auto) U Epithel Cells (Auto) Urine Bacteria (Auto) Urine Opiates Screen Ur Methadone, Qual Urine Barbiturates Ur Phencyclidine (PCP) U Amphetamin/Meth Scrn MDMA (Ecstasy) Screen U Benzodiazepines Scrn Ur Cocaine Metabolite U Marijuana (THC) Screen Ethyl Alcohol mg/dL RPR Nonreactive Hepatitis C Ab Screen SARS-CoV-2, RNA, NAAT NEGATIVE Ref Lab Test Result 06/11/21 06/11/21 06/11/21 11:53 12:49 12:49 WBC RBC Hgb Hct MCV MCH MCHC RDW Std Deviation RDW Coeff of Duong Plt Count MPV Immature Gran % (Auto) Neut % (Auto) Lymph % (Auto) [place] % (Auto) Eos % (Auto) Baso % (Auto) Neut # (Auto) Lymph # (Auto) [place] # (Auto) Eos # (Auto) Baso # (Auto) Immature Gran # (Auto) PT 10.5 INR 1.0 APTT PTT Ratio Sodium 142 Potassium 4.1 D Chloride 109 H Carbon Dioxide 27 Anion Gap 5.0 BUN 16 D Creatinine 1.01 Est Cr Clr Drug Dosing 46.8 Est GFR ( Amer) 66.2 Est GFR (Non-Af Amer) 57.2 BUN/Creatinine Ratio 15.9 Glucose 133 H Calcium 9.2 Magnesium 2.0 Total Bilirubin 0.3 AST 6 L ALT 12 Alkaline Phosphatase 62 Ammonia Total Creatine Kinase Troponin I Total Protein 7.0 Albumin 3.4 Globulin 3.6 Albumin/Globulin Ratio 0.9 Vitamin B12 182 L Folate 5.50 TSH Urine Color Urine Appearance Urine pH Ur Specific [place] Urine Protein Urine Glucose (UA) Urine Ketones Urine Blood Urine Nitrite Urine Bilirubin Urine Urobilinogen Ur Leukocyte Esterase Urine WBC (Auto) Urine RBC (Auto) U Hyaline Cast (Auto) U Epithel Cells (Auto) Urine Bacteria (Auto) Urine Opiates Screen Ur Methadone, Qual Urine Barbiturates Ur Phencyclidine (PCP) U Amphetamin/Meth Scrn MDMA (Ecstasy) Screen U Benzodiazepines Scrn Ur Cocaine Metabolite U Marijuana (THC) Screen Ethyl Alcohol mg/dL RPR Hepatitis C Ab Screen SARS-CoV-2, RNA, NAAT Ref Lab Test Result 06/11/21 06/11/21 06/11/21 12:49 12:49 18:28 WBC RBC Hgb Hct MCV MCH MCHC RDW Std Deviation RDW Coeff of Duong Plt Count MPV Immature Gran % (Auto) Neut % (Auto) Lymph % (Auto) [place] % (Auto) Eos % (Auto) Baso % (Auto) Neut # (Auto) Lymph # (Auto) [place] # (Auto) Eos # (Auto) Baso # (Auto) Immature Gran # (Auto) PT INR APTT PTT Ratio Sodium Potassium Chloride Carbon Dioxide Anion Gap BUN Creatinine Est Cr Clr Drug Dosing Est GFR ( Amer) Est GFR (Non-Af Amer) BUN/Creatinine Ratio Glucose Calcium Magnesium Total Bilirubin AST ALT Alkaline Phosphatase Ammonia 21.6 Total Creatine Kinase Troponin I Total Protein Albumin Globulin Albumin/Globulin Ratio Vitamin B12 Folate TSH Urine Color Yellow Urine Appearance Clear Urine pH 6.5 Ur Specific [place] 1.008 Urine Protein Negative Urine Glucose (UA) Negative Urine Ketones Negative Urine Blood Negative Urine Nitrite Negative Urine Bilirubin Negative Urine Urobilinogen Negative Ur Leukocyte Esterase 2+ H Urine WBC (Auto) 10-30 H Urine RBC (Auto) 0-4 U Hyaline Cast (Auto) 0 U Epithel Cells (Auto) 20-30 H Urine Bacteria (Auto) Negative Urine Opiates Screen Ur Methadone, Qual Urine Barbiturates Ur Phencyclidine (PCP) U Amphetamin/Meth Scrn MDMA (Ecstasy) Screen U Benzodiazepines Scrn Ur Cocaine Metabolite U Marijuana (THC) Screen Ethyl Alcohol mg/dL RPR Hepatitis C Ab Screen Neg SARS-CoV-2, RNA, NAAT Ref Lab Test Result 06/15/21 10:47 WBC RBC Hgb Hct MCV MCH MCHC RDW Std Deviation RDW Coeff of Duong Plt Count MPV Immature Gran % (Auto) Neut % (Auto) Lymph % (Auto) [place] % (Auto) Eos % (Auto) Baso % (Auto) Neut # (Auto) Lymph # (Auto) [place] # (Auto) Eos # (Auto) Baso # (Auto) Immature Gran # (Auto) PT INR APTT PTT Ratio Sodium Potassium Chloride Carbon Dioxide Anion Gap BUN Creatinine Est Cr Clr Drug Dosing Est GFR ( Amer) Est GFR (Non-Af Amer) BUN/Creatinine Ratio Glucose Calcium Magnesium Total Bilirubin AST ALT Alkaline Phosphatase Ammonia Total Creatine Kinase Troponin I Total Protein Albumin Globulin Albumin/Globulin Ratio Vitamin B12 Folate TSH Urine Color Urine Appearance Urine pH Ur Specific [place] Urine Protein Urine Glucose (UA) Urine Ketones Urine Blood Urine Nitrite Urine Bilirubin Urine Urobilinogen Ur Leukocyte Esterase Urine WBC (Auto) Urine RBC (Auto) U Hyaline Cast (Auto) U Epithel Cells (Auto) Urine Bacteria (Auto) Urine Opiates Screen Ur Methadone, Qual Urine Barbiturates Ur Phencyclidine (PCP) U Amphetamin/Meth Scrn MDMA (Ecstasy) Screen U Benzodiazepines Scrn Ur Cocaine Metabolite U Marijuana (THC) Screen Ethyl Alcohol mg/dL RPR Hepatitis C Ab Screen SARS-CoV-2, RNA, NAAT Ref Lab Test Result Cancelled Diagnostic Findings Current Active Problems Problem Status Onset Folate deficiency B12 deficiency DVT prophylaxis Delirium Hypertension Psychosis Altered mental status Hallucination, visual Acute UTI (urinary tract infection) Hypokalemia
[2021-06-15] MEDS: SODIUM CHLORIDE 0.9% 1000ML 1,000 ML IV SCH (13:26)
--- NOTE | 2021-06-15 15:39 | Communication Note ---
Date of Service: June 15, 2021 I saw Evelyn in her room today. She was with her one-on-one nurse. She was calm cooperative pleasant superficially oriented but still claims that she is saying some of her hallucinations and is now includes a small baby. The woman who was controlling her thoughts is no longer present but appears periodically very the CT scan of the chest abdomen pelvis does show a 9 cm ovarian mass on the left with a calcified nodule suspicious for an epithelial neoplasm and she is being seen by gynecology going some tumor markers and is recommending transfer to [place] for surgery or least surgical evaluation at [place] in the future. We have obtained a serum NMDA antibody titer which will take some time to come back and ideally this should be done in the CSF if we are really thinking about a paraneoplastic syndrome but the MRI scan did not show any significant enhancing areas although the study was very limited by motion artifact and possibly can be should be repeated in the future if this becomes a major issue My recommendations would be to have her transferred to [facility], have her evaluated by gynecology, perhaps have the lesion resected and if she is an inpatient have her assessed by the neurology consult team and have the paraneoplastic syndrome concept revisited by them and other testing perhaps even CSF testing recommended and performed if necessary. Dr. Blankenship will be available if there are any further questions regarding her case over the weekend and we are making them aware of the situation For now however neurology is making no further suggestions other than those of i.e. investigate the pathology involved in the ovarian mass and obtain the usual antibodies associated with ovarian teratomas and carcinomas that have been implicated in causing left apparently was recently originating psychosis with visual hallucinations and auditory hallucinations Ankur Joy MD
--- NOTE | 2021-06-15 16:50 | Communication Note ---
Date of Service: June 15, 2021 Interim chart reviewed. Patient was placed back on 1-on-1 yesterday afternoon as reported seeing "eyes again" when left alone. Per other providers remains pleasantly confused, typically seems to have breakthrough in afternoon. Will shift dosing of Zyprexa to BID with meals and consider increase in pm dose.
--- NOTE | 2021-06-15 17:29 | Hospitalist Progress Note ---
Date of Service June 15, 2021 Assessment & Plan (1) Delirium: Plan: Pt has not improved with treatment of UTI and addition of Zyprexa B12, folate were checked and low, started replacement supplementation and added thiamine empirically. Brain MRI performed and limited but overall negative. Zyprexa increased to BID per psych recommendations and she reports that she is tolerating this well Neuro also on board and considering EEG and CT c/a/p- Appreciate neurology input and recommendation. 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 She uses alot of pronouns and cannot quite define what the issue is but is bothered by it. Psychiatric input and recommendation Still has significant hallucinations specially when nobody is around her Remains pleasantly confused No more hallucinations noted (3) Acute UTI (urinary tract infection): Plan: Cont cefdinir pending culture results. Urine culture is preliminarily negative. Patient is asymptomatic. Await final read and likely stop abx. Urine is growing 3 types of organisms-we will discontinue antibiotic (4) Hypertension: Plan: BP 207/85 in the ER and has come down. Amlodipine also started this admission. Will continue for now. Blood pressure is controlled (5) B12 deficiency: Plan: replacement with B12 started today We will continue B12 replacement (6) Folate deficiency: Plan: started daily folic acid, empirically started thiamine. (7) DVT prophylaxis: Plan: Lovenox Full Code Dispo-remain hospitalized pending completion of workup. Patient lives in a motel. Has a son who is local. Admission and Anticipated Discharge Date Admission Date: June 12, 2021 Subjective 06/13/2021 The patient was seen and examined in medical floor She has been stable but he still pleasantly confused Does have hallucination at times Denies any acute distress 06/14/2021 The patient was seen and examined in medical floor She was hallucinating following checking of one-to-one sitter early this morning She is confused with a one-to-one sitter now and he still has mild hallucination Denies any acute distress 06/15/2021 The patient was seen and examined in medical floor She has been feeling much better remains pleasantly confused but denies any hallucinations Review of Systems Review of Systems: All systems reviewed and are unremarkable except as noted below Physical Exam Physical Exam: Lying in bed without any acute distress Constitutional: well developed, well nourished, + ill appearing and average body habitus Eyes: PERRL, conjunctivae normal, anicteric sclerae ENMT: external ear and nose normal, oropharynx normal Neck: trachea midline, no thyromegaly Respiratory: no respiratory distress and no cough Auscultation: lungs clear to auscultation bilaterally Cardiovascular: Rate/Rhythm: regular rate and regular rhythm; not tachycardic Heart Sounds: normal S1 and normal S2; no murmur Extremities: no edema Gastrointestinal (Abdomen): Inspection/Auscultation: abdomen not distended Percussion/Palpation: abdomen soft; abdomen nontender Musculoskeletal: No acute arthritis in any joint Neurologic: Alert and awake. Pleasantly confused. No hallucinations Lymphatic: no cervical or axillary lymphadenopathy Results & Data Results & Data ([facility]) Vital Signs (Past 12 Hours) Vital Signs Temp Pulse Resp BP Pulse Ox 06/15/21 06:38 37.2 C 76 18 152/77 H 95 Medications Administered Current Inpatient Medications Amlodipine Besylate (Amlodipine Besylate 5 Mg Tab) [facility] [place] Stop: 07/12/21 08:59 Last Admin: 06/15/21 08:42 Dose: 7.5 mg Documented by: Cefdinir (Cefdinir 300 Mg Cap) 300 mg PO BID [facility] Stop: 06/16/21 20:59 Last Admin: 06/15/21 08:44 Dose: 300 mg Documented by: Cyanocobalamin (Cyanocobalamin 500 Mcg Tablet (Vitamin B-12)) 1,000 mcg PO QAM [facility] Stop: 07/12/21 08:59 Last Admin: 06/15/21 08:45 Dose: 1,000 mcg Documented by: Enoxaparin Sodium (Enoxaparin Inj 40 Mg/0.4 Ml Syr) 40 mg SQ QAM [facility] Stop: 07/13/21 08:59 Last Admin: 06/15/21 08:46 Dose: 40 mg Documented by: Folic Acid (Folic Acid 1 Mg Tab) 1 mg PO QAM [facility] Stop: 07/12/21 08:59 Last Admin: 06/15/21 08:45 Dose: 1 mg Documented by: Hydralazine HCl (Hydralazine Hcl 20 Mg/Ml Vial) 5 mg IV Q6H PRN PRN Reason: Hypertension Stop: 07/11/21 16:24 Last Admin: 06/12/21 06:13 Dose: 5 mg Documented by: Olanzapine (Olanzapine 10 Mg/2.1 Ml Sdv) 2.5 mg IM Q4H PRN PRN Reason: Anxiety/Agitation Stop: 07/15/21 01:22 Olanzapine (Olanzapine 2.5 Mg Tab) 2.5 mg PO BIDM [facility] Stop: 07/15/21 16:59 Thiamine HCl (Thiamine Hcl 100 Mg Tab) 100 mg PO QAM [facility] Stop: 07/12/21 08:59 Last Admin: 06/15/21 08:45 Dose: 100 mg Documented by: (1) Hypertension Hypertension type: other secondary hypertension Qualified Code(s): I15.8 - Other secondary hypertension
[2021-06-16] MEDS: CYANOCOBALAMIN 500 MCG TABLET (VITAMIN B-12) PO SCH (08:03)
[2021-06-16] MEDS: THIAMINE HCL 100 MG TAB PO SCH (08:03)
[2021-06-16] MEDS: CEFDINIR 300 MG CAP PO SCH (08:03)
[2021-06-16] MEDS: OLANZAPINE 2.5 MG TAB PO SCH (08:03)
[2021-06-16] MEDS: FOLIC ACID 1 MG TAB PO SCH (08:04)
[2021-06-16] MEDS: amLODIPine BESYLATE 5 MG TAB PO SCH (08:04)
[2021-06-16] MEDS: ENOXAPARIN INJ 40 MG/0.4 ML SYR SQ SCH (08:05)
--- NOTE | 2021-06-16 11:11 | Psychiatric Progress Note ---
Date of Service June 16, 2021 Impression / Recommendations Impression As per Dr. Pedersen: This is a 66 yo woman with no previous psychiatric history with two presentations in the last two months for new onset visual hallucinations. Differential for unspecified psychosis includes primary psychiatric disorder such as schizophrenia but this would be highly unusual for acute onset in older age given no prior psych hx as well as no other significant negative symptoms and visual hallucinations are an uncommon presentation in primary psychiatric disorders. Differential also includes substance-induced or secondary to a medical cause. Substance-induced or substance-withdrawal is less likely in context of negative UDS but the fact that she cleared rapidly last time and suddenly developed reality-testing within a few hours suggests she may be using a substance that is not showing up on the UDS. A medical cause including delirium can often present with visual hallucinations and her low potassium or UTI could certainly cause this, especially at her age. Other possibilities including start of some type of neurocognitive disorder such as lewy body dementia which can first present with visual hallucinations, no other sign of significant memory impairment but this tends to be a more insidious onset rather than abrupt. 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 06/16/21: worsening of symptoms despite ongoing medical support, paraneoplastic work up pending. Certainly ongoing hospitalization can contribute to delirium even when initial delirium is resolving, she remains quite confused with poor memory, does not appear to be responding to internal stimuli. (1) Acute UTI (urinary tract infection): (2) Hallucination, visual: increase Zyprexa to 2.5 mg am and 5 mg pm to address alvarez, she is not exhibiting disruptive behavior and is redirectible but requires significant supervision. Liaison to reattempt contact with son. Risk Factors Assessment : Yes Do You Have Access To A Gun?: No Previous Attempt: No Family History of Suicide: No Previous Psychiatric Hospitalization: No Hopelessness: No Smoker: No Protective Factors Assessment Employed: No Supportive Family: Yes Interval History Identifying Information 66 yo woman with no known prior psychiatric history who presented to the ED for the second time in two months for visual hallucinations. Psychiatry was consulted for diagnostic clarification and management recommendations. She was seen on 06/10/[address] Pedersen. Chief Complaint "yeah nobody believes me about this stuff". Review of Systems Notes patient is unreliable filler picker, eating and sleeping, denies GI side effects or EPS. tremor is baseline. Subjective Subjective Patient was seen & assessed and interval progress reviewed with nursing. Interim history reviewed. Patient has had more persistent hallucinations and paranoia again in the past 24 hrs. She makes statements about seeing cats and babies and continues to believe there are men with guns at the hotel. Around the time her 302 was expiring on 06/13/21 1-on-1 was discontinued but she had recurrence of alvarez, now increasing again even with 1-on-1 support. She is pleasantly confused and had an extended conversation with her sister per 1-on-1. She ambulated well with cane in the hallway, reports eversion of right foot is baseline due to hx of fracture. She cooperated with shower and is taking medications as prescribed and will finish Omnicef this pm. Physical Exam Psychiatric Orientation: alert, oriented to person and oriented to place Apperance: + disheveled Eye Contact: + fair eye contact Motor Behavior: no abnormal motor movements and + tremor (very slight resting tremor in left hand); + unsteady gait or station (wide based gait, slow) and n EPS Speech: + abnormal rate/rhythm/volume of speech (halted due to word finding difficulties.) Affect: euthymic affect Mood: + anxious mood; no irritable mood Thought Process: + tangential thought process Thought Content: + paranoid and + delusions Suicidal Thoughts: denies suicidal thoughts Homicidal Thoughts: denies homicidal thoughts Hallucinations: no auditory hallucinations and no visual hallucinations Cognition: + recent memory not intact, + remote memory not intact, + attention not intact and + language not intact (some word finding difficulties) Insight: + impaired insight Judgement: + impaired judgement Vital Signs (Past 24 Hours) Last Vital Signs Temp 36.7 C 06/16/21 07:59 Pulse 76 06/16/21 07:59 Resp 16 06/16/21 07:59 BP 131/76 06/16/21 07:59 Pulse Ox 96 06/16/21 07:59 Results & Data ([facility]) Laboratory Results Laboratory Results - last 24 hr 06/16/21 06/16/21 05:55 05:55 Carcinoembryonic Ag Pending CA 19-9 Antigen Pending CA 125 Antigen Pending Current Inpatient Medications Current Inpatient Medications: Current Inpatient Medications Amlodipine Besylate (Amlodipine Besylate 5 Mg Tab) 7.5 mg PO [facility] Stop: 07/12/21 08:59 Last Admin: 06/16/21 08:04 Dose: 7.5 mg Documented by: Cefdinir (Cefdinir 300 Mg Cap) 300 mg PO BID [facility] Stop: 06/16/21 20:59 Last Admin: 06/16/21 08:03 Dose: 300 mg Documented by: Cyanocobalamin (Cyanocobalamin 500 Mcg Tablet (Vitamin B-12)) 1,000 mcg PO [facility] Stop: 07/12/21 08:59 Last Admin: 06/16/21 08:03 Dose: 1,000 mcg Documented by: Enoxaparin Sodium (Enoxaparin Inj 40 Mg/0.4 Ml Syr) 40 mg SQ [facility] Stop: 07/13/21 08:59 Last Admin: 06/16/21 08:05 Dose: 40 mg Documented by: Folic Acid (Folic Acid 1 Mg Tab) 1 mg PO [facility] Stop: 07/12/21 08:59 Last Admin: 06/16/21 08:04 Dose: 1 mg Documented by: Hydralazine HCl (Hydralazine Hcl 20 Mg/Ml Vial) 5 mg IV Q6H PRN PRN Reason: Hypertension Stop: 07/11/21 16:24 Last Admin: 06/12/21 06:13 Dose: 5 mg Documented by: Olanzapine (Olanzapine 10 Mg/2.1 Ml Sdv) 2.5 mg IM Q4H PRN PRN Reason: Anxiety/Agitation Stop: 07/15/21 01:22 Olanzapine (Olanzapine 2.5 Mg Tab) 2.5 mg PO BIDM [facility] Stop: 07/15/21 16:59 Last Admin: 06/16/21 08:03 Dose: 2.5 mg Documented by: Thiamine HCl (Thiamine Hcl 100 Mg Tab) 100 mg PO [facility] Stop: 07/12/21 08:59 Last Admin: 06/16/21 08:03 Dose: 100 mg Documented by:
--- NOTE | 2021-06-16 14:39 | Communication Note ---
Date of Service: June 16, [address] Jones. Attempted to reach son myself. Discussed reinitiating a 302 to entertain laina psych referral when medically cleared given frequency of hallucinations and her confusion around them as well as diagnostic uncertainty. Liaison to petition and contact delegate. Patient is cooperative overall but confused and I do not feel she can understand risks/benefits of psychiatric hospitalization. Although son not immediately available she was initially on a 302 and service will continue to reach out to son re: possible referrals.
--- NOTE | 2021-06-16 16:04 | Hospitalist Progress Note ---
Date of Service June 16, 2021 Assessment & Plan (1) Delirium: Plan: Pt has not improved with treatment of UTI and addition of Zyprexa B12, folate were checked and low, started replacement supplementation and added thiamine empirically. Brain MRI performed and limited but overall negative. Zyprexa increased to BID per psych recommendations and she reports that she is tolerating this well Neuro also on board and considering EEG and CT c/a/p- Appreciate neurology input and recommendation. 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 She uses alot of pronouns and cannot quite define what the issue is but is bothered by it. Psychiatric input and recommendation Still has significant hallucinations specially when nobody is around her Remains pleasantly confused No more hallucinations noted (3) Acute UTI (urinary tract infection): Plan: Cont cefdinir pending culture results. Urine culture is preliminarily negative. Patient is asymptomatic. Await final read and likely stop abx. Urine is growing 3 types of organisms-we will discontinue antibiotic (4) Hypertension: Plan: BP 207/85 in the ER and has come down. Amlodipine also started this admission. Will continue for now. Blood pressure is controlled (5) B12 deficiency: Plan: replacement with B12 started today We will continue B12 replacement (6) Folate deficiency: Plan: started daily folic acid, empirically started thiamine. (7) DVT prophylaxis: Plan: Lovenox Full Code Dispo-remain hospitalized pending completion of workup. Patient lives in a motel. Has a son who is local. Admission and Anticipated Discharge Date Admission Date: June 12, 2021 Subjective 06/13/2021 The patient was seen and examined in medical floor She has been stable but he still pleasantly confused Does have hallucination at times Denies any acute distress 06/14/2021 The patient was seen and examined in medical floor She was hallucinating following checking of one-to-one sitter early this morning She is confused with a one-to-one sitter now and he still has mild hallucination Denies any acute distress 06/15/2021 The patient was seen and examined in medical floor She has been feeling much better remains pleasantly confused but denies any hallucinations 06/16/2021 The patient was seen and examined in medical floor She has been with one-to-one sitter Pleasantly confused but denies to have any more hallucination Review of Systems Review of Systems: All systems reviewed and are unremarkable except as noted below Physical Exam Physical Exam: Lying in bed without any acute distress Constitutional: well developed, well nourished, + ill appearing and average body habitus Eyes: PERRL, conjunctivae normal, anicteric sclerae ENMT: external ear and nose normal, oropharynx normal Neck: trachea midline, no thyromegaly Respiratory: no respiratory distress and no cough Auscultation: lungs clear to auscultation bilaterally Cardiovascular: Rate/Rhythm: regular rate and regular rhythm; not tachycardic Heart Sounds: normal S1 and normal S2; no murmur Extremities: no edema Gastrointestinal (Abdomen): Inspection/Auscultation: abdomen not distended Percussion/Palpation: abdomen soft; abdomen nontender Lymphatic: no cervical or axillary lymphadenopathy Results & Data Results & Data ([facility]) Vital Signs (Past 12 Hours) Vital Signs Temp Pulse Resp BP Pulse Ox 06/16/21 14:53 36.6 C 74 16 127/72 96 06/16/21 07:59 36.7 C 76 16 131/76 96 (1) Hypertension Hypertension type: other secondary hypertension Qualified Code(s): I15.8 - Other secondary hypertension
[2021-06-16] MEDS: OLANZapine 5 MG TABLET PO SCH (16:11)
[2021-06-17] MEDS: OLANZAPINE 2.5 MG TAB PO SCH (08:53)
[2021-06-17] MEDS: THIAMINE HCL 100 MG TAB PO SCH (08:54)
[2021-06-17] MEDS: amLODIPine BESYLATE 5 MG TAB PO SCH (08:54)
[2021-06-17] MEDS: CYANOCOBALAMIN 500 MCG TABLET (VITAMIN B-12) PO SCH (08:55)
[2021-06-17] MEDS: FOLIC ACID 1 MG TAB PO SCH (08:55)
[2021-06-17] MEDS: ENOXAPARIN INJ 40 MG/0.4 ML SYR SQ SCH (08:56)
--- NOTE | 2021-06-17 09:41 | Psychiatric Progress Note ---
Date of Service June 17, 2021 Impression / Recommendations Impression psychotic disorder unspecified, initially felt to be some delirium superimposed on underlying cognitive changes, delusions and hallucinations persisting despite improvement in medical status, today appears somewhat disinhibited 06/17/21: explained to patient the need to pursue geriatric psychiatry referral, her attention span varies. 302 warrant on chart and county to complete rights/ etc today and assist with bed search. 302 completed. (1) Psychosis: continue current dose of Zyprexa pending placement Risk Factors Assessment : Yes Do You Have Access To A Gun?: No Previous Attempt: No Family History of Suicide: No Previous Psychiatric Hospitalization: No Hopelessness: No Smoker: No Protective Factors Assessment Employed: No Supportive Family: Yes Interval History Identifying Information 66 yo woman with no known prior psychiatric history who presented to the ED for the second time in two months for visual hallucinations. She was initially on a 302 commitment and seen by psychiatrist in the ED pending placement. She was ultimately admitted medically for HTN, presumed UTI. Chief Complaint "I sang so everyone would be safe". Review of Systems Notes patient is without physical complaints other than weakness but "I feel stronger today" Subjective Subjective Patient was seen & assessed and interval progress reviewed with liaison. 1-on-1 aide at bedside states she seems activated this am compared to previous contacts. The patient continues to report visual alvarez of men sticking a gun in her face and believes that on the day her she sang to keep self safe from the threats. Sleep and appetite seem intact. This am she is loud, smiling. It should be noted that she was initially presented to a geriatric psychiatry unit on 06/13/21. Since that time she has been treated with a course of Omnicef, started on B12 and folate suppl, and diagnosed with a L ovarian mass, with some send out labs still pending. Additional work up can be done on an outpatient basis per hospitalist. She was started on low dose Zyprexa BID to target hallucinations (seeing babies, men with guns, eye balls in her room). She does better when staff are present to redirect. Her symptoms seemed to be improving around the expiration of her 302 and she was cooperative with care as able so a 303 commitment was not pursued. Since that time her symptoms have been more unpredictable, confusion/tangentiality seem more peristent vs. wax and waning that would be seen with resolving delirium. Paranoia is more often when alone vs clear pattern with sundowning. Zyprexa was increased last evening. She continues to have some resting tremor, primarily left hand. It does not appear worse to me today. Otherwise no evidence of EPS. She continues to report feelings of persecution and appears sad when discusses that others don't believe she is getting threats. Physical Exam Psychiatric Orientation: alert, oriented to person and oriented to place Apperance: appropriately dressed and appropriately groomed Eye Contact: good eye contact Motor Behavior: no abnormal motor movements Speech: + loud speech (hyperverbal today bordering on pressured) Affect: + elated affect Mood: no depressed mood (expansive) Thought Process: + tangential thought process and + looseness of associations Thought Content: + paranoid, + delusions and + persecution Suicidal Thoughts: denies suicidal thoughts Homicidal Thoughts: denies homicidal thoughts Hallucinations: no auditory hallucinations (did not appear to be responding to internal stimuli at the time of the exam) and no visual hallucinations Cognition: language grossly intact; + attention not intact Estimated Intelligence: consistent with education level Insight: + limited insight Judgement: + limited judgement Vital Signs (Past 24 Hours) Last Vital Signs Temp 37.4 C 06/17/21 07:04 Pulse 73 06/17/21 07:04 Resp 18 06/17/21 07:04 BP 159/79 H 06/17/21 07:04 Pulse Ox 99 06/17/21 07:04 Results & Data ([facility]) Laboratory Results Laboratory Results - last 24 hr 06/16/21 05:55 Carcinoembryonic Ag 1.4 Current Inpatient Medications Current Inpatient Medications: Current Inpatient Medications Amlodipine Besylate (Amlodipine Besylate 5 Mg Tab) 7.5 mg PO QAM [facility] Stop: 07/12/21 08:59 Last Admin: 06/17/21 08:54 Dose: 7.5 mg Documented by: Cyanocobalamin (Cyanocobalamin 500 Mcg Tablet (Vitamin B-12)) 1,000 mcg PO QAM [facility] Stop: 07/12/21 08:59 Last Admin: 06/17/21 08:55 Dose: 1,000 mcg Documented by: Enoxaparin Sodium (Enoxaparin Inj 40 Mg/0.4 Ml Syr) 40 mg SQ QAM [facility] Stop: 07/13/21 08:59 Last Admin: 06/17/21 08:56 Dose: 40 mg Documented by: Folic Acid (Folic Acid 1 Mg Tab) 1 mg PO QAM [facility] Stop: 07/12/21 08:59 Last Admin: 06/17/21 08:55 Dose: 1 mg Documented by: Hydralazine HCl (Hydralazine Hcl 20 Mg/Ml Vial) 5 mg IV Q6H PRN PRN Reason: Hypertension Stop: 07/11/21 16:24 Last Admin: 06/12/21 06:13 Dose: 5 mg Documented by: Olanzapine (Olanzapine 10 Mg/2.1 Ml Sdv) 2.5 mg IM Q4H PRN PRN Reason: Anxiety/Agitation Stop: 07/15/21 01:22 Olanzapine (Olanzapine 2.5 Mg Tab) 2.5 mg PO QAM [facility] Stop: 07/17/21 08:59 Last Admin: 06/17/21 08:53 Dose: 2.5 mg Documented by: Olanzapine (Olanzapine 5 Mg Tablet) 5 mg PO DAILYBD [facility] Stop: 07/16/21 15:29 Last Admin: 06/16/21 16:11 Dose: 5 mg Documented by: Thiamine HCl (Thiamine Hcl 100 Mg Tab) 100 mg PO QAM [facility] Stop: 07/12/21 08:59 Last Admin: 06/17/21 08:54 Dose: 100 mg Documented by: (1) Psychosis Psychosis type: unspecified psychosis type Qualified Code(s): F29 - Unspecified psychosis not due to a substance or known physiological condition
[2021-06-17] MEDS: OLANZapine 5 MG TABLET PO SCH (16:30)
--- NOTE | 2021-06-17 16:42 | Hospitalist Progress Note ---
Date of Service June 17, 2021 Assessment & Plan (1) Delirium: Plan: Pt has not improved with treatment of UTI and addition of Zyprexa B12, folate were checked and low, started replacement supplementation and added thiamine empirically. Brain MRI performed and limited but overall negative. Zyprexa increased to BID per psych recommendations and she reports that she is tolerating this well Neuro also on board and considering EEG and CT c/a/p- Appreciate neurology input and recommendation. 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 She uses alot of pronouns and cannot quite define what the issue is but is bothered by it. Psychiatric input and recommendation Still has significant hallucinations specially when nobody is around her Remains pleasantly confused Still having hallucinations at times (3) Acute UTI (urinary tract infection): Plan: Cont cefdinir pending culture results. Urine culture is preliminarily negative. Patient is asymptomatic. Await final read and likely stop abx. Urine is growing 3 types of organisms-we will discontinue antibiotic (4) Hypertension: Plan: BP 207/85 in the ER and has come down. Amlodipine also started this admission. Will continue for now. Blood pressure is controlled (5) B12 deficiency: Plan: replacement with B12 started today We will continue B12 replacement (6) Folate deficiency: Plan: started daily folic acid, empirically started thiamine. (7) DVT prophylaxis: Plan: Lovenox Full Code Dispo-remain hospitalized pending completion of workup. Patient lives in a motel. Has a son who is local. Will need placement Admission and Anticipated Discharge Date Admission Date: June 12, 2021 Subjective 06/13/2021 The patient was seen and examined in medical floor She has been stable but he still pleasantly confused Does have hallucination at times Denies any acute distress 06/14/2021 The patient was seen and examined in medical floor She was hallucinating following checking of one-to-one sitter early this morning She is confused with a one-to-one sitter now and he still has mild hallucination Denies any acute distress 06/15/2021 The patient was seen and examined in medical floor She has been feeling much better remains pleasantly confused but denies any hallucinations 06/16/2021 The patient was seen and examined in medical floor She has been with one-to-one sitter Pleasantly confused but denies to have any more hallucination 06/17/2021 The patient was seen and examined in medical floor She remains stable with one-to-one sitter Pleasantly confused and has occasional hallucination Review of Systems Review of Systems: All systems reviewed and are unremarkable except as noted below Physical Exam Physical Exam: Lying in bed without any acute distress Constitutional: well developed, well nourished, + ill appearing and average body habitus Eyes: PERRL, conjunctivae normal, anicteric sclerae ENMT: external ear and nose normal, oropharynx normal Neck: trachea midline, no thyromegaly Respiratory: no respiratory distress and no cough Auscultation: lungs clear to auscultation bilaterally Cardiovascular: Rate/Rhythm: regular rate and regular rhythm; not tachycardic Heart Sounds: normal S1 and normal S2; no murmur Extremities: no edema Gastrointestinal (Abdomen): Inspection/Auscultation: abdomen not distended Percussion/Palpation: abdomen soft; abdomen nontender Neurologic: Alert and awake. Pleasantly confused. Occasional hallucination Lymphatic: no cervical or axillary lymphadenopathy Results & Data Results & Data ([facility]) Vital Signs (Past 12 Hours) Vital Signs Temp Pulse Resp BP Pulse Ox 06/17/21 07:04 37.4 C 73 18 159/79 H 99 (1) Hypertension Hypertension type: other secondary hypertension Qualified Code(s): I15.8 - Other secondary hypertension
[2021-06-17] MEDS ORDERED: LORazepam 0.5 MG TAB PO STA (20:54)
[2021-06-17] MEDS ORDERED: haloperidoL 1 MG TAB PO PRN (20:56)
[2021-06-18] MEDS: CYANOCOBALAMIN 500 MCG TABLET (VITAMIN B-12) PO SCH (11:52)
[2021-06-18] MEDS: amLODIPine BESYLATE 5 MG TAB PO SCH (11:53)
[2021-06-18] MEDS: THIAMINE HCL 100 MG TAB PO SCH (11:53)
[2021-06-18] MEDS: ENOXAPARIN INJ 40 MG/0.4 ML SYR SQ SCH (11:54)
[2021-06-18] MEDS: FOLIC ACID 1 MG TAB PO SCH (11:54)
[2021-06-18] MEDS: OLANZAPINE 2.5 MG TAB PO SCH (11:58)
--- NOTE | 2021-06-18 13:10 | Communication Note ---
Date of Service: June 18, 2021 Contacted last pm as patient was having mood swings--more tearful and paranoid, nursing expressed concern that timing seemed to coincide with increase in pm dose of Zyprexa. She was more restless and/or anxious related to the delusions and was given prn Ativan 0.5 mg which was helpful. Haldol 2 mg q6 ordered but not required as not aggressive. Patient is awaiting psychiatry placement on 302 commitment. 1-on-1 bedside states sleeping all am. Zyprexa 2.5 mg am dose held at my direction. Will essentially d/c Zyprexa today as no benefit of dose incre ase and possible side effects and use prns with plan to reassess for a trial of Risperdal. Will continue to round regularly as a service on patient and provide support to behavior management on the floor given need for frequent redireciton around alvarez and delusions.
--- NOTE | 2021-06-18 15:54 | Hospitalist Progress Note ---
Date of Service June 18, 2021 Assessment & Plan (1) Delirium: Plan: Pt has not improved with treatment of UTI and addition of Zyprexa B12, folate were checked and low, started replacement supplementation and added thiamine empirically. Brain MRI performed and limited but overall negative. Zyprexa increased to BID per psych recommendations and she reports that she is tolerating this well Neuro also on board and considering EEG and CT c/a/p- Appreciate neurology input and recommendation. EEG has been pending-has been negative for any seizure activity Clinically she remains stable and remains pleasantly confused No more hallucinations noted NMDA level has been sent-pending for now Has been having more paranoia with the dosing of Zyprexa which will be discontinued as per the psychiatrist We will observe and await till she is being asked accepted to facility Discussed with her son in detail The patient has a family history of dementia with her mother and History of stomach/intestinal cancer with sister The son feels that she may have dementia and I mentioned that she will need to be placed The son is aware about the ovarian mass and possible malignancy 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 She uses alot of pronouns and cannot quite define what the issue is but is bothered by it. Psychiatric input and recommendation Still has significant hallucinations specially when nobody is around her Remains pleasantly confused Still having hallucinations at times Zyprexa has been discontinued as it was causing more hallucination as per the nursing staff (3) Acute UTI (urinary tract infection): Plan: Cont cefdinir pending culture results. Urine culture is preliminarily negative. Patient is asymptomatic. Await final read and likely stop abx. Urine is growing 3 types of organisms-we will discontinue antibiotic (4) Hypertension: Plan: BP 207/85 in the ER and has come down. Amlodipine also started this admission. Will continue for now. Blood pressure is controlled (5) B12 deficiency: Plan: replacement with B12 started today We will continue B12 replacement (6) Folate deficiency: Plan: started daily folic acid, empirically started thiamine. (7) DVT prophylaxis: Plan: Lovenox Full Code Dispo-remain hospitalized pending completion of workup. Patient lives in a motel. Has a son who is local. Will need placement Admission and Anticipated Discharge Date Admission Date: June 12, 2021 Subjective 06/13/2021 The patient was seen and examined in medical floor She has been stable but he still pleasantly confused Does have hallucination at times Denies any acute distress 06/14/2021 The patient was seen and examined in medical floor She was hallucinating following checking of one-to-one sitter early this morning She is confused with a one-to-one sitter now and he still has mild hallucination Denies any acute distress 06/15/2021 The patient was seen and examined in medical floor She has been feeling much better remains pleasantly confused but denies any hallucinations 06/16/2021 The patient was seen and examined in medical floor She has been with one-to-one sitter Pleasantly confused but denies to have any more hallucination 06/17/2021 The patient was seen and examined in medical floor She remains stable with one-to-one sitter Pleasantly confused and has occasional hallucination 06/18/2021 The patient was seen and examined in medical floor Early in the morning she was sleeping and was noted to have increasing paranoia immediately after getting Zyprexa Later on she was seen and she did not have any complaint but is still having ongoing hallucination Physical Exam Physical Exam: Lying in bed without any acute distress Constitutional: well developed, well nourished, + ill appearing and average body habitus Eyes: PERRL, conjunctivae normal, anicteric sclerae ENMT: external ear and nose normal, oropharynx normal Neck: trachea midline, no thyromegaly Respiratory: no respiratory distress and no cough Auscultation: lungs clear to auscultation bilaterally Cardiovascular: Rate/Rhythm: regular rate and regular rhythm; not tachycardic Heart Sounds: normal S1 and normal S2; no murmur Extremities: no edema Gastrointestinal (Abdomen): Inspection/Auscultation: abdomen not distended Percussion/Palpation: abdomen soft; abdomen nontender Lymphatic: no cervical or axillary lymphadenopathy Results & Data Results & Data ([facility]) Vital Signs (Past 12 Hours) Vital Signs Temp Pulse Resp BP Pulse Ox 06/18/21 11:50 37.1 C 76 18 153/84 H 95 (1) Hypertension Hypertension type: other secondary hypertension Qualified Code(s): I15.8 - Other secondary hypertension
[2021-06-18] MEDS: LORazepam 0.5 MG TAB PO PRN (16:30)
[2021-06-19] MEDS: LORazepam 0.5 MG TAB PO PRN ×3 (00:59→20:15)
[2021-06-19] MEDS: amLODIPine BESYLATE 5 MG TAB PO SCH (09:48)
[2021-06-19] MEDS: CYANOCOBALAMIN 500 MCG TABLET (VITAMIN B-12) PO SCH (09:50)
[2021-06-19] MEDS: ENOXAPARIN INJ 40 MG/0.4 ML SYR SQ SCH (09:50)
[2021-06-19] MEDS: FOLIC ACID 1 MG TAB PO SCH (09:51)
[2021-06-19] MEDS: THIAMINE HCL 100 MG TAB PO SCH (09:52)
--- NOTE | 2021-06-19 12:43 | Psychiatric Progress Note ---
Date of Service June 19, 2021 Impression / Recommendations Impression psychotic disorder unspecified, initially felt to be some delirium superimposed on underlying cognitive changes, delusions and hallucinations persisting despite improvement in medical status, she has exhibited signs of mood instability like hypertalkative and expansive to now flat and sad about daughter 06/19/21: remains on med floor on a 302 commitment, bed search ongoing per [facility], she would continue to benefit from inpatient psychiatric hospitalization for stabilization of her symptoms and medication management. Will not start new medication today as patient quite sedated (?residual from Zyprexa or Ativan). (1) Psychosis: see impression. Risk Factors Assessment : Yes Do You Have Access To A Gun?: No Previous Attempt: No Family History of Suicide: No Previous Psychiatric Hospitalization: No Hopelessness: No Smoker: No Protective Factors Assessment Employed: No Supportive Family: Yes Interval History Identifying Information 66 yo woman with no known prior psychiatric history who presented to the ED for the second time in two months for visual hallucinations. She was initially on a 302 commitment and seen by psychiatrist in the ED pending placement. She was ultimately admitted medically for HTN, presumed UTI. Chief Complaint "I just feel down and no pep today". Subjective Subjective Patient was seen & assessed and interval progress reviewed. Bed search ongoing per [facility] delegate. Patient was tired from "everything going on last night" which she reports is related not to seeing men but finding out about daughter's . Nurses note responding to internal stimuli last night but otherwise no behavioral issues. Received Ativan 0.5 mg for anxiety related to delusions around 1 am but no Haldol. Physical Exam Psychiatric Orientation: alert, oriented to person and oriented to place Apperance: appropriately dressed and + disheveled Eye Contact: + fair eye contact Motor Behavior: no abnormal motor movements Speech: + abnormal rate/rhythm/volume of speech (halted due to word finding difficulties.) Affect: + constricted affect Mood: + anxious mood Thought Process: + circumstantial thought process Thought Content: + delusions Suicidal Thoughts: denies suicidal thoughts Homicidal Thoughts: denies homicidal thoughts Hallucinations: no auditory hallucinations (did not appear to be responding to internal stimuli at the time of the exam) and no visual hallucinations Cognition: language grossly intact; + recent memory not intact and + attention not intact Estimated Intelligence: consistent with education level Insight: + impaired insight Judgement: + impaired judgement Vital Signs (Past 24 Hours) Last Vital Signs Temp 36.8 C 06/19/21 08:07 Pulse 76 06/19/21 08:07 Resp 18 06/19/21 08:07 BP 131/77 06/19/21 09:46 Pulse Ox 97 06/19/21 08:07 Results & Data ([facility]) Current Inpatient Medications Current Inpatient Medications: Current Inpatient Medications Amlodipine Besylate (Amlodipine Besylate 5 Mg Tab) 7.5 mg PO [facility] Stop: 07/12/21 08:59 Last Admin: 06/19/21 09:48 Dose: 7.5 mg Documented by: Cyanocobalamin (Cyanocobalamin 500 Mcg Tablet (Vitamin B-12)) 1,000 mcg PO [facility] Stop: 07/12/21 08:59 Last Admin: 06/19/21 09:50 Dose: 1,000 mcg Documented by: Enoxaparin Sodium (Enoxaparin Inj 40 Mg/0.4 Ml Syr) 40 mg SQ [facility] Stop: 07/13/21 08:59 Last Admin: 06/19/21 09:50 Dose: 40 mg Documented by: Folic Acid (Folic Acid 1 Mg Tab) 1 mg PO [facility] Stop: 07/12/21 08:59 Last Admin: 06/19/21 09:51 Dose: 1 mg Documented by: Haloperidol (Haloperidol 1 Mg Tab) 2 mg PO Q6 PRN PRN Reason: Anxiety/Agitation Stop: 07/17/21 20:55 Hydralazine HCl (Hydralazine Hcl 20 Mg/Ml Vial) 5 mg IV Q6H PRN PRN Reason: Hypertension Stop: 07/11/21 16:24 Last Admin: 06/12/21 06:13 Dose: 5 mg Documented by: Lorazepam (Lorazepam 0.5 Mg Tab) 0.5 mg PO Q8 PRN PRN Reason: Anxiety Stop: 07/18/21 11:46 Last Admin: 06/19/21 12:10 Dose: 0.5 mg Documented by: Thiamine HCl (Thiamine Hcl 100 Mg Tab) 100 mg PO [facility] Stop: 07/12/21 08:59 Last Admin: 06/19/21 09:52 Dose: 100 mg Documented by: (1) Psychosis Psychosis type: unspecified psychosis type Qualified Code(s): F29 - Unspecified psychosis not due to a substance or known physiological condition
--- NOTE | 2021-06-19 16:36 | Hospitalist Progress Note ---
Date of Service June 19, 2021 Assessment & Plan (1) Delirium: Plan: Pt has not improved with treatment of UTI and addition of Zyprexa B12, folate were checked and low, started replacement supplementation and added thiamine empirically. Brain MRI performed and limited but overall negative. Zyprexa increased to BID per psych recommendations and she reports that she is tolerating this well Neuro also on board and considering EEG and CT c/a/p- Appreciate neurology input and recommendation. EEG has been pending-has been negative for any seizure activity Clinically she remains stable and remains pleasantly confused No more hallucinations noted NMDA level has been sent-pending for now Has been having more paranoia with the dosing of Zyprexa which will be discontinued as per the psychiatrist We will observe and await till she is being asked accepted to facility No more hallucination Noted to have some right-sided weakness Neuro examination this morning unremarkable Doubt any stroke and/or TIA Will observe and will get rest CAT scan if needed Discussed with her son in detail The patient has a family history of dementia with her mother and History of stomach/intestinal cancer with sister The son feels that she may have dementia and I mentioned that she will need to be placed The son is aware about the ovarian mass and possible malignancy 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 She uses alot of pronouns and cannot quite define what the issue is but is bothered by it. Psychiatric input and recommendation Still has significant hallucinations specially when nobody is around her Remains pleasantly confused Still having hallucinations at times Zyprexa has been discontinued as it was causing more hallucination as per the nursing staff (3) Acute UTI (urinary tract infection): Plan: Cont cefdinir pending culture results. Urine culture is preliminarily negative. Patient is asymptomatic. Await final read and likely stop abx. Urine is growing 3 types of organisms-we will discontinue antibiotic (4) Hypertension: Plan: BP 207/85 in the ER and has come down. Amlodipine also started this admission. Will continue for now. Blood pressure is controlled (5) B12 deficiency: Plan: replacement with B12 started today We will continue B12 replacement (6) Folate deficiency: Plan: started daily folic acid, empirically started thiamine. (7) DVT prophylaxis: Plan: Lovenox Full Code Dispo-remain hospitalized pending completion of workup. Patient lives in a motel. Has a son who is local. Will need placement Admission and Anticipated Discharge Date Admission Date: June 12, 2021 Subjective 06/13/2021 The patient was seen and examined in medical floor She has been stable but he still pleasantly confused Does have hallucination at times Denies any acute distress 06/14/2021 The patient was seen and examined in medical floor She was hallucinating following checking of one-to-one sitter early this morning She is confused with a one-to-one sitter now and he still has mild hallucination Denies any acute distress 06/15/2021 The patient was seen and examined in medical floor She has been feeling much better remains pleasantly confused but denies any hallucinations 06/16/2021 The patient was seen and examined in medical floor She has been with one-to-one sitter Pleasantly confused but denies to have any more hallucination 06/17/2021 The patient was seen and examined in medical floor She remains stable with one-to-one sitter Pleasantly confused and has occasional hallucination 06/18/2021 The patient was seen and examined in medical floor Early in the morning she was sleeping and was noted to have increasing paranoia immediately after getting Zyprexa Later on she was seen and she did not have any complaint but is still having ongoing hallucination 06/19/2021 The patient was seen and examined in medical floor in presence of the sitter and the nurse I was reported that she is tracking her right side with ambulation and may have some weakness of the right sided extremities Saw her limping on the right side Denies any other symptoms Review of Systems Review of Systems: All systems reviewed and are unremarkable except as noted below Neurologic: Generally weak Physical Exam Physical Exam: Lying in bed without any acute distress Constitutional: well developed, well nourished, + ill appearing and average body habitus Eyes: PERRL, conjunctivae normal, anicteric sclerae ENMT: external ear and nose normal, oropharynx normal Neck: trachea midline, no thyromegaly Respiratory: no respiratory distress and no cough Auscultation: lungs clear to auscultation bilaterally Cardiovascular: Rate/Rhythm: regular rate and regular rhythm; not tachycardic Heart Sounds: normal S1 and normal S2; no murmur Extremities: no edema Gastrointestinal (Abdomen): Inspection/Auscultation: abdomen not distended Percussion/Palpation: abdomen soft; abdomen nontender Neurologic: Alert and awake. Pleasantly confused. Generally weak. No significant weakness noted on the right side extremities. No facial asymmetry, no dysarthria or dysphagia and no visual symptoms Lymphatic: no cervical or axillary lymphadenopathy Results & Data Results & Data ([facility]) Vital Signs (Past 12 Hours) Vital Signs Temp Pulse Resp BP Pulse Ox 06/19/21 15:00 37.0 C 70 18 126/65 99 06/19/21 09:46 131/77 06/19/21 08:07 36.8 C 76 18 151/83 H 97 Medications Administered Current Inpatient Medications Amlodipine Besylate (Amlodipine Besylate 5 Mg Tab) 7.5 mg PO [facility] Stop: 07/12/21 08:59 Last Admin: 06/19/21 09:48 Dose: 7.5 mg Documented by: Cyanocobalamin (Cyanocobalamin 500 Mcg Tablet (Vitamin B-12)) 1,000 mcg PO [facility] Stop: 07/12/21 08:59 Last Admin: 06/19/21 09:50 Dose: 1,000 mcg Documented by: Enoxaparin Sodium (Enoxaparin Inj 40 Mg/0.4 Ml Syr) 40 mg SQ [facility] Stop: 07/13/21 08:59 Last Admin: 06/19/21 09:50 Dose: 40 mg Documented by: Folic Acid (Folic Acid 1 Mg Tab) [facility] Stop: 07/12/21 08:59 Last Admin: 06/19/21 09:51 Dose: 1 mg Documented by: Haloperidol (Haloperidol 1 Mg Tab) 2 mg PO Q6 PRN PRN Reason: Anxiety/Agitation Stop: 07/17/21 20:55 Hydralazine HCl (Hydralazine Hcl 20 Mg/Ml Vial) 5 mg IV Q6H PRN PRN Reason: Hypertension Stop: 07/11/21 16:24 Last Admin: 06/12/21 06:13 Dose: 5 mg Documented by: Lorazepam (Lorazepam 0.5 Mg Tab) 0.5 mg PO Q8 PRN PRN Reason: Anxiety Stop: 07/18/21 11:46 Last Admin: 06/19/21 12:10 Dose: 0.5 mg Documented by: Thiamine HCl (Thiamine Hcl 100 Mg Tab) 100 mg PO [facility] Stop: 07/12/21 08:59 Last Admin: 06/19/21 09:52 Dose: 100 mg Documented by: (1) Hypertension Hypertension type: other secondary hypertension Qualified Code(s): I15.8 - Other secondary hypertension
[2021-06-20] MEDS ORDERED: SODIUM CHLORIDE 0.9% 1000ML 1,000 ML IV SCH (01:15)
[2021-06-20 02:38] LABS: Hematocrit (blood only) 34.3 % (37-47); Hemoglobin 11.3 g/dL (12.0-16.0); Mean Corpuscular Hemoglobin 30.1 pg (25-34); Mean Corpuscular Hgb Conc 32.9 g/dL (32-36); Mean Corpuscular Volume 91.5 fL (80-100); RDW Coefficient of Variation 12.8 % (11.5-14.5); RDW Standard Deviation 43.2 fL (36.4-46.3); Red Blood Count 3.75 M/uL (4.2-5.4); White Blood Count 3.88 K/uL (4.8-10.8)
[2021-06-20 02:57] LABS: Basophils # (auto) 0.02 K/uL (0-0.2); Basophils % (auto) 0.5 %; Eosinophils # (auto) 0.16 K/uL (0-0.5); Eosinophils % (auto) 4.1 %; Immature Granulocytes # (auto) 0.01 K/uL (0.00-0.02); Immature Granulocytes % (auto) 0.3 %; Lymphocytes # (auto) 0.82 K/uL (1.2-3.4); Lymphocytes % (auto) 21.1 %; Monocytes % (auto) 7.7 %; Neutrophils # (auto) 2.57 K/uL (1.4-6.5); Neutrophils % (auto) 66.3 %; Platelet Count 95 K/uL (130-400); Platelet Estimate Decreased (Normal); RBC Morphology Unremarkable
[2021-06-20 03:26] LABS: BUN Creatinine Ratio 20.9 (10-20); Blood Urea Nitrogen 24 mg/dl (7-18); Calcium 8.9 mg/dl (8.5-10.1); Carbon Dioxide 23 mmol/L (21-32); Chloride 110 mmol/L (98-107); Creatinine Clr Calc Pharmacy 41.2 ml/min; Est GFR (African American) 56.6 ml/min; Est GFR (Non-African American) 48.9 ml/min; Glucose 182 mg/dl (70-99); Magnesium 2.2 mg/dl (1.8-2.4); Sodium 141 mmol/L (136-145)
[2021-06-20 03:31] LABS: Troponin I < 0.015 ng/ml (0-0.045)
--- NOTE | 2021-06-20 07:15 | CT Scan Report ---
HEAD CT NONCONTRAST CT DOSE: 614.27 mGy.cm HISTORY: fall. head injury TECHNIQUE: Multiaxial CT images of the head were performed without the use of intravenous contrast. A utomated exposure control was utilized for this study. A dose lowering technique was utilized adheri ng to the principles of ALARA. Comparison: Head CT 06/09/2021. Findings: The paranasal sinuses and mastoid air cells are clear. The calvarium and skull base are int act. There is no mass, hematoma, midline shift, acute infarct. White matter hypodensity is nonspecifi c but suggestive of microvascular ischemic change. The ventricles and sulci demonstrate mild age-rela elizabeth involutional changes. Impression: No significant change compared to the prior study. No acute intracranial abnormality. ACT 112: Negative or not required by law. Electronically signed by: Alberto Morrissey M.D. 06/20/2021 7:14 AM
[2021-06-20] MEDS: amLODIPine BESYLATE 5 MG TAB PO SCH (08:14)
[2021-06-20] MEDS: ENOXAPARIN INJ 40 MG/0.4 ML SYR SQ SCH (08:16)
[2021-06-20] MEDS: CYANOCOBALAMIN 500 MCG TABLET (VITAMIN B-12) PO SCH (08:16)
[2021-06-20] MEDS: FOLIC ACID 1 MG TAB PO SCH (08:18)
[2021-06-20] MEDS: THIAMINE HCL 100 MG TAB PO SCH (08:18)
--- NOTE | 2021-06-20 10:16 | Psychiatric Progress Note ---
Date of Service June 20, 2021 Impression / Recommendations Impression 66 yo woman with no prior psychiatric history with new onset visual hallucinations and cognitive changes over the last two months admitted medically for presumed superimposed delirium. 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 This is supported by her report, collateral from her son, neurology consultation findings and score of 0 on the mini-cognitive and poor performance on categorical fluency which further improves the specificity and sensitivity of the mini-cog as a screening tool for dementia.Her waxing and waning presentation with periods of improved cognition can be due to LBD but may also be due to resolving delirium. Recommend discont inuing ativan as this can perpetuate and worsen delirium and confusion in dementia. At this point I do not feel she has decision making capacity to leave the hospital AMA as she has dementia with AMS. I do not feel she meets criteria for inpatient psychiatric hospitalization nor involuntary psychiatric commitment as her presentation is driven by symptoms from her suspected neurocognitive disorde r. Given the degree of her confusion I do not feel that she would be safe to discharge back to the [facility] at this time and would recommend a higher level of alf care to ensure her safety and for help attending to her ADLs. 06/20/21: significant confusion consistent with dementia process. Will let 302 . Discontinued ativan as this contributes to delirium and can worsen confusion in dementia. Adding seroquel 25 mg qhs to help with delusions and visual hallucinations associated with LBD. Will continue to use low doses and monitor closely for possible EPS. Also will monitor BP closely as seroquel can increase fall risk and she is already at elevated risk for falls. Additionally given her dementia, seroquel comes with black box warning for risk of increased all cause mortality but benefit felt to outweigh current risk due to her current level of impairment due to periods of intense anxiety and distress when experiencing visual hallucinations. (1) Altered mental status: (2) Major neurocognitive disorder: (3) Delirium: -302 status will , patient does not have decision making capacity to leave AMA -discontinue ativan -start seroquel 25 mg qhs -behavioral emergency: seroquel 12.5-25 mg qd prn po OR olanzapine 2.5 mg x1 IM Risk Factors Assessment : Yes Do You Have Access To A Gun?: No Previous Attempt: No Family History of Suicide: No Previous Psychiatric Hospitalization: No Hopelessness: No Smoker: No Protective Factors Assessment Employed: No Supportive Family: Yes Interval History Identifying Information 66 yo woman with no known prior psychiatric history who presented to the ED for the second time in two months for visual hallucinations. She was initially on a 302 commitment and seen by psychiatrist in the ED pending placement. She was ultimately admitted medically for HTN, presumed UTI. Chief Complaint "The preacher was here this morning with his , they looked sad and gave me her handkerchief". Review of Systems Notes Fall last night, reports feeling sore today due to this. Good appetite. Subjective Subjective Patient was seen & assessed and interval progress reviewed. Had a fall overnight, no signs of stroke or head trauma on CT. Received ativan 0.5 mg x2 yesterday. Today Evelyn presents with significant confusion. She believes she is in a religion but agrees that a hospital makes sense once corrected and after re- orienting her and having her read my badge. She isn't sure why she fell last night but states this occurs multiple times per month for her usually. She reports seeing a collection correspondent and his in her bed this morning and that was trying to help them reconcile since the looked sad. They did not say anything to her and she continues to deny any AH. On cognitive testing she wasn't oriented to place (religion), month (june) nor year (2021). 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 She was able to follow some two-step commands. On 3 item recall she got 0/3. Clock draw showed [place] and numbers but hands were incorrect (katlyn three hands of same length with no arrows) so also scored 0 for this. Categorical fluency testing named 5 animals in 1 minute (dog, cat, bird, rabbit, chicken). She reports worsening memory over the last few months though she has difficulty giving details. She also discusses the stressors recently of having to move out of the [id number], a local hotel, after it closed and since living in a local motel with her son. Otherwise reports stable mood and denies SI and HI. 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 Collateral from her son, who spoke with our psych liason, notable for "Kaden reported that the patient has been increasingly confused and forgetful for the past 2-3 months. He did not elaborate further.". Physical Exam Psychiatric Orientation: alert, oriented to person and cooperative; + not oriented to place and + not oriented to time Apperance: appropriately dressed and appropriately groomed Eye Contact: good eye contact Motor Behavior: no abnormal motor movements and + tremor (slight left hand tremor ) Speech: normal rate/rhythm/volume of speech Affect: euthymic affect Mood: no depressed mood and no anxious mood Thought Process: + circumstantial thought process and + looseness of associations Thought Content: + delusions Suicidal Thoughts: denies suicidal thoughts Homicidal Thoughts: denies homicidal thoughts Hallucinations: + visual hallucinations; no auditory hallucinations Cognition: remote memory grossly intact; + recent memory not intact, + attention not intact and + language not intact Insight: + impaired insight Judgement: + impaired judgement Vital Signs (Past 24 Hours) Last Vital Signs Temp 36.9 C 06/20/21 08:06 Pulse 78 06/20/21 08:06 Resp 19 06/20/21 08:06 BP 137/70 06/20/21 08:06 Pulse Ox 97 06/20/21 08:06 Results & Data ([facility]) Laboratory Results Laboratory Results - last 24 hr 06/20/21 06/20/21 06/20/21 02:26 02:26 06:44 WBC 3.88 L RBC 3.75 L Hgb 11.3 L Hct 34.3 L MCV 91.5 MCH 30.1 MCHC 32.9 RDW Std Deviation 43.2 RDW Coeff of Duong 12.8 Plt Count 95 L MPV 11.0 H Immature Gran % (Auto) 0.3 Neut % (Auto) 66.3 Lymph % (Auto) 21.1 Leake % (Auto) 7.7 Eos % (Auto) 4.1 Baso % (Auto) 0.5 Neut # (Auto) 2.57 Lymph # (Auto) 0.82 L Leake # (Auto) 0.30 Eos # (Auto) 0.16 Baso # (Auto) 0.02 Immature Gran # (Auto) 0.01 Platelet Estimate Decreased L RBC Morphology Unremarkable Sodium 141 Potassium 4.0 Chloride 110 H Carbon Dioxide 23 Anion Gap 8.0 BUN 24 H Creatinine 1.15 Est Cr Clr Drug Dosing 41.2 Est GFR ( Amer) 56.6 Est GFR (Non-Af Amer) 48.9 BUN/Creatinine Ratio 20.9 H Glucose 182 H Calcium 8.9 Magnesium 2.2 Troponin I < 0.015 < 0.015 Current Inpatient Medications Current Inpatient Medications: Current Inpatient Medications Amlodipine Besylate (Amlodipine Besylate 5 Mg Tab) 7.5 mg PO [facility] Stop: 07/12/21 08:59 Last Admin: 06/20/21 08:14 Dose: 7.5 mg Documented by: Cyanocobalamin (Cyanocobalamin 500 Mcg Tablet (Vitamin B-12)) 1,000 mcg PO [facility] Stop: 07/12/21 08:59 Last Admin: 06/20/21 08:16 Dose: 1,000 mcg Documented by: Enoxaparin Sodium (Enoxaparin Inj 40 Mg/0.4 Ml Syr) 40 mg SQ [facility] Stop: 07/13/21 08:59 Last Admin: 06/20/21 08:16 Dose: 40 mg Documented by: Folic Acid (Folic Acid 1 Mg Tab) [facility] Stop: 07/12/21 08:59 Last Admin: 06/20/21 08:18 Dose: 1 mg Documented by: Haloperidol (Haloperidol 1 Mg Tab) 2 mg PO Q6 PRN PRN Reason: Anxiety/Agitation Stop: 07/17/21 20:55 Last Admin: 06/19/21 18:40 Dose: 2 mg Documented by: Hydralazine HCl (Hydralazine Hcl 20 Mg/Ml Vial) 5 mg IV Q6H PRN PRN Reason: Hypertension Stop: 07/11/21 16:24 Last Admin: 06/12/21 06:13 Dose: 5 mg Documented by: Sodium Chloride (Nss 1000ml) 1,000 mls @ 100 mls/hr IV .Q10H [facility] Stop: 06/20/21 11:14 Last Admin: 06/20/21 02:13 Dose: 100 mls/hr Documented by: Lorazepam (Lorazepam 0.5 Mg Tab) 0.5 mg PO Q8 PRN PRN Reason: Anxiety Stop: 07/18/21 11:46 Last Admin: 06/19/21 20:15 Dose: 0.5 mg Documented by: Thiamine HCl (Thiamine Hcl 100 Mg Tab) 100 mg PO QAM [facility] Stop: 07/12/21 08:59 Last Admin: 06/20/21 08:18 Dose: 100 mg Documented by: (1) Altered mental status Altered mental status type: unspecified Qualified Code(s): R41.82 - Altered mental status, unspecified
[2021-06-20 12:33] LABS: CA 125 13 U/mL (<35); Cancer Antigen 19-9 18 U/mL (<34)
--- NOTE | 2021-06-20 14:24 | Electrocardiogram Report ---
Test Reason : Blood Pressure : / mmHG Vent. Rate : 074 BPM Atrial Rate : 053 BPM P-R Int : 000 ms QRS Dur : 118 ms QT Int : 420 ms P-R-T Axes : 000 -12 068 degrees QTc Int : 466 ms Poor data quality, interpretation may be adversely affected sinus rhythm Incomplete right bundle branch block Abnormal ECG Confirmed by Gucci Pérez ([id number]) on 06/20/2021 2:24:43 PM Referred By: REFERRED SELF Confirmed By:Adam Pérez
--- NOTE | 2021-06-20 14:40 | Electrocardiogram Report ---
Test Reason : Blood Pressure : / mmHG Vent. Rate : 083 BPM Atrial Rate : 083 BPM P-R Int : 178 ms QRS Dur : 120 ms QT Int : 412 ms P-R-T Axes : 079 -12 062 degrees QTc Int : 484 ms Sinus rhythm Low voltage QRS with 1st degree A-V block Right bundle branch block Abnormal ECG Confirmed by Gucci Pérez ([id number]) on 06/20/2021 2:39:58 PM Referred By: REFERRED SELF Confirmed By:Adam Pérez
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
[2021-06-20] MEDS: QUEtiapine FUMARATE 25 MG TABLET PO SCH (19:36)
[2021-06-21] MEDS: FOLIC ACID 1 MG TAB PO SCH (07:51)
[2021-06-21] MEDS: CYANOCOBALAMIN 500 MCG TABLET (VITAMIN B-12) PO SCH (07:52)
[2021-06-21] MEDS: amLODIPine BESYLATE 5 MG TAB PO SCH (07:52)
[2021-06-21] MEDS: THIAMINE HCL 100 MG TAB PO SCH (07:52)
[2021-06-21] MEDS: ENOXAPARIN INJ 40 MG/0.4 ML SYR SQ SCH (07:52)
--- NOTE | 2021-06-21 13:04 | Psychiatric Progress Note ---
Date of Service June 21, 2021 Impression / Recommendations Impression 66 yo woman with no prior psychiatric history with new onset visual hallucinations and cognitive changes over the last two months admitted medically for presumed superimposed delirium. 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 This is supported by her report, collateral from her son, neurology consultation findings and score of 0 on the mini-cognitive and poor performance on categorical fluency which further improves the specificity and sensitivity of the mini-cog as a screening tool for dementia.Her waxing and waning presentation with periods of improved cognition can be due to LBD but may also be due to resolving delirium. 06/21/21: no report of VH today and tolerating the Seroquel well, remains confused about where she is which lead to some irritability and confusion. Plan: continue with seroquel, will need SNF given dementia and inability to safely function independently (1) Altered mental status: (2) Major neurocognitive disorder: (3) Delirium: -patient does not have decision making capacity to leave AMA -c/w seroquel 25 mg qhs -behavioral emergency: seroquel 12.5-25 mg qd prn po OR olanzapine 2.5 mg x1 IM Risk Factors Assessment : Yes Do You Have Access To A Gun?: No Previous Attempt: No Family History of Suicide: No Previous Psychiatric Hospitalization: No Hopelessness: No Smoker: No Protective Factors Assessment Employed: No Supportive Family: Yes Interval History Identifying Information 66 yo woman with no known prior psychiatric history who presented to the ED for the second time in two months for visual hallucinations. She was initially on a 302 commitment and seen by psychiatrist in the ED pending placement. She was ult imately admitted medically for HTN, presumed UTI. Chief Complaint "I'm miserbale because someone locked my cabinets and they better not damage my son's TV". Review of Systems Notes Reports good sleep and appetite. Subjective Subjective Patient was seen & assessed and interval progress reviewed. Took the seroquel last night and appeared to do well overnight. Not needing 1:1 so far today. This morning states her mood is "miserable" due to frustration about not being able to open cabinets where she thought she kept her medication and being unable to find her purses, checkbook and shoes. With further questioning she thought she was still at the motel. Re-oriented her but she continued to have difficulty with orientation believing the TV on the wall was her son's from the [facility]. No discussion of visual hallucinations today. No side effects from the seroquel last night, she denies any muscle stiffness or EPS symptoms. Physical Exam Psychiatric Orientation: alert, oriented to person and cooperative; + not oriented to time Apperance: appropriately dressed and + disheveled Eye Contact: + fair eye contact Motor Behavior: no abnormal motor movements and + tremor (slight left hand tremor ); + unsteady gait or station (wide based gait, slow) and n EPS Speech: normal rate/rhythm/volume of speech Affect: + irritable affect Mood: + irritable mood Thought Process: + looseness of associations and + perseveration Thought Content: + paranoid and + persecution Suicidal Thoughts: denies suicidal thoughts Homicidal Thoughts: denies homicidal thoughts Hallucinations: no auditory hallucinations and no visual hallucinations Cognition: remote memory grossly intact; + recent memory not intact, + attention not intact and + language not intact Estimated Intelligence: consistent with education level Insight: + impaired insight Judgement: + impaired judgement Vital Signs (Past 24 Hours) Last Vital Signs Temp 36.7 C 06/21/21 07:59 Pulse 85 06/21/21 08:02 Resp 16 06/21/21 08:02 BP 157/74 H 06/21/21 08:02 Pulse Ox 98 06/21/21 08:02 Results & Data ([facility]) Current Inpatient Medications Current Inpatient Medications: Current Inpatient Medications Amlodipine Besylate (Amlodipine Besylate 5 Mg Tab) 7.5 mg PO QAM [facility] Stop: 07/12/21 08:59 Last Admin: 06/21/21 07:52 Dose: 7.5 mg Documented by: Cyanocobalamin (Cyanocobalamin 500 Mcg Tablet (Vitamin B-12)) 1,000 mcg PO QAM [facility] Stop: 07/12/21 08:59 Last Admin: 06/21/21 07:52 Dose: 1,000 mcg Documented by: Enoxaparin Sodium (Enoxaparin Inj 40 Mg/0.4 Ml Syr) 40 mg SQ QAM [facility] Stop: 07/13/21 08:59 Last Admin: 06/21/21 07:52 Dose: 40 mg Documented by: Folic Acid (Folic Acid 1 Mg Tab) 1 mg PO QAM [facility] Stop: 07/12/21 08:59 Last Admin: 06/21/21 07:51 Dose: 1 mg Documented by: Hydralazine HCl (Hydralazine Hcl 20 Mg/Ml Vial) 5 mg IV Q6H PRN PRN Reason: Hypertension Stop: 07/11/21 16:24 Last Admin: 06/12/21 06:13 Dose: 5 mg Documented by: Quetiapine Fumarate (Quetiapine Fumarate 25 Mg Tablet) 25 mg PO [facility] Stop: 07/20/21 20:59 Last Admin: 06/20/21 19:36 Dose: 25 mg Documented by: Thiamine HCl (Thiamine Hcl 100 Mg Tab) 100 mg PO QAM [facility] Stop: 07/12/21 08:59 Last Admin: 06/21/21 07:52 Dose: 100 mg Documented by: (1) Altered mental status Altered mental status type: unspecified Qualified Code(s): R41.82 - Altered mental status, unspecified
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
[2021-06-21] MEDS: QUEtiapine FUMARATE 25 MG TABLET PO SCH (19:35)
[2021-06-22] MEDS: amLODIPine BESYLATE 5 MG TAB PO SCH (09:03)
[2021-06-22] MEDS: CYANOCOBALAMIN 500 MCG TABLET (VITAMIN B-12) PO SCH (09:07)
[2021-06-22] MEDS: FOLIC ACID 1 MG TAB PO SCH (09:07)
[2021-06-22] MEDS: THIAMINE HCL 100 MG TAB PO SCH (09:08)
[2021-06-22] MEDS: ENOXAPARIN INJ 40 MG/0.4 ML SYR SQ SCH (13:46)
--- NOTE | 2021-06-22 14:07 | Psychiatric Progress Note ---
Date of Service June 22, 2021 Impression / Recommendations Impression 66 yo woman with no prior psychiatric history with new onset visual hallucinations and cognitive changes over the last two months admitted medically for presumed superimposed delirium. 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 This is supported by her report, collateral from her son, neurology consultation findings and score of 0 on the mini-cognitive and poor performance on categorical fluency which further improves the specificity and sensitivity of the mini-cog as a screening tool for dementia.Her waxing and waning presentation with periods of improved cognition can be due to LBD but may also be due to resolving delirium. 06/22/21: remains confused, more irritable/anxious this afternoon requiring additional support,tolerating the Seroquel well without any EPS side effects, rigidity or bradykinesia. Given ongoing VH and increased irritability in this context will add seroquel prn options. Plan: continue with seroquel 25mg hs with seroquel 12.5 mg bid prn for agitation, will need SNF given dementia and inability to safely function independently (1) Altered mental status: (2) Major neurocognitive disorder: (3) Delirium: -patient does not have decision making capacity to leave AMA -c/w seroquel 25 mg qhs -seroquel 12.5 mg BID prn for agitation -behavioral emergency: seroquel 12.5-25 mg qd prn po OR olanzapine 2.5 mg x1 IM Risk Factors Assessment : Yes Do You Have Access To A Gun?: No Previous Attempt: No Family History of Suicide: No Previous Psychiatric Hospitalization: No Hopelessness: No Smoker: No Protective Factors Assessment Employed: No Supportive Family: Yes Interval History Identifying Information 66 yo woman with no known prior psychiatric history who presented to the ED for the second time in two months for visual hallucinations. She was initially on a 302 commitment and seen by psychiatrist in the ED pending placement. She was ultimately admitted medically for HTN, presumed UTI. Chief Complaint "My daughter is under the mattress so I can't sit there, don't you see her eyes there looking at us". Review of Systems Notes Slept well overnight, eating well Subjective Subjective Patient was seen & assessed and interval progress reviewed. Did well overnight and this morning but this afternoon thinks she is in the motel, pleased with how she has cleaned up her room "look at the house keeping I did in the bathroom" and believes she needs to pack up her stuff and leave. She's wearing her winter jacket and looking for her purse that she keeps in a machinist wood the motel. She is anxious about her teenage daughter and reports visual hallucinations of seeing her under the mattress and when we lift the mattress she points to where she sees her "eyes" looking at us and then thinks she is behind the curtain in the room making defiant faces at [place]. Physical Exam Psychiatric Orientation: alert, oriented to person and cooperative; + not oriented to place and + not oriented to time Apperance: appropriately groomed Eye Contact: + fair eye contact Motor Behavior: no abnormal motor movements and + tremor (slight left hand tremor ); n EPS Speech: normal rate/rhythm/volume of speech Affect: + anxious affect Mood: + irritable mood Thought Process: + looseness of associations and + perseveration Thought Content: + delusions Suicidal Thoughts: denies suicidal thoughts Homicidal Thoughts: denies homicidal thoughts Hallucinations: + visual hallucinations; no auditory hallucinations Cognition: remote memory grossly intact; + recent memory not intact, + attention not intact and + language not intact Insight: + impaired insight Judgement: + impaired judgement Vital Signs (Past 24 Hours) Last Vital Signs Temp 36.6 C 06/22/21 05:03 Pulse 80 06/22/21 11:40 Resp 18 06/22/21 11:40 BP 105/66 06/22/21 11:40 Pulse Ox 98 06/22/21 11:40 Results & Data ([facility]) Current Inpatient Medications Current Inpatient Medications: Current Inpatient Medications Amlodipine Besylate (Amlodipine Besylate 5 Mg Tab) 7.5 mg PO QAM [facility] Stop: 07/12/21 08:59 Last Admin: 06/22/21 09:03 Dose: 7.5 mg Documented by: Cyanocobalamin (Cyanocobalamin 500 Mcg Tablet (Vitamin B-12)) 1,000 mcg PO QAM [facility] Stop: 07/12/21 08:59 Last Admin: 06/22/21 09:07 Dose: 1,000 mcg Documented by: Enoxaparin Sodium (Enoxaparin Inj 40 Mg/0.4 Ml Syr) 40 mg SQ QAM [facility] Stop: 07/13/21 08:59 Last Admin: 06/22/21 13:46 Dose: 40 mg Documented by: Folic Acid (Folic Acid 1 Mg Tab) 1 mg PO QAM [facility] Stop: 07/12/21 08:59 Last Admin: 06/22/21 09:07 Dose: 1 mg Documented by: Hydralazine HCl (Hydralazine Hcl 20 Mg/Ml Vial) 5 mg IV Q6H PRN PRN Reason: Hypertension Stop: 07/11/21 16:24 Last Admin: 06/12/21 06:13 Dose: 5 mg Documented by: Quetiapine Fumarate (Quetiapine Fumarate 25 Mg Tablet) 25 mg PO HS [facility] Stop: 07/20/21 20:59 Last Admin: 06/21/21 19:35 Dose: 25 mg Documented by: Thiamine HCl (Thiamine Hcl 100 Mg Tab) 100 mg PO QAM [facility] Stop: 07/12/21 08:59 Last Admin: 06/22/21 09:08 Dose: 100 mg Documented by: (1) Altered mental status Altered mental status type: unspecified Qualified Code(s): R41.82 - Altered mental status, unspecified
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
[2021-06-22] MEDS: QUEtiapine FUMARATE 25 MG TABLET PO SCH (19:32)
[2021-06-22] MEDS: QUEtiapine FUMARATE 25 MG TABLET PO PRN (23:04)
[2021-06-23] MEDS: ENOXAPARIN INJ 40 MG/0.4 ML SYR SQ SCH ×2 (09:17→09:21)
[2021-06-23] MEDS: FOLIC ACID 1 MG TAB PO SCH (09:18)
[2021-06-23] MEDS: CYANOCOBALAMIN 500 MCG TABLET (VITAMIN B-12) PO SCH (09:18)
[2021-06-23] MEDS: amLODIPine BESYLATE 5 MG TAB PO SCH (09:18)
[2021-06-23] MEDS: THIAMINE HCL 100 MG TAB PO SCH (09:18)
--- NOTE | 2021-06-23 12:11 | Psychiatric Progress Note ---
Date of Service June 23, 2021 Impression / Recommendations Impression 66 yo woman with no prior psychiatric history with new onset visual hallucinations and cognitive changes over the last two months admitted medically for presumed superimposed delirium. 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 This is supported by her report, collateral from her son, neurology consultation findings and score of 0 on the mini-cognitive and poor performance on categorical fluency which further improves the specificity and sensitivity of the mini-cog as a screening tool for dementia.Her waxing and waning presentation with periods of improved cognition can be due to LBD but may also be due to resolving delirium. 06/23/21: remains confused,calm and pleasant with euthymic mood today,tolerating the Seroquel well without any EPS side effects, rigidity or bradykinesia nor significant hypotension or falls. Plan: continue with seroquel 25mg hs with seroquel 12.5 mg bid prn for agitation, will need SNF given dementia and inability to safely function independently; consider OT eval for assessment of ability to attend to ADLs given her level of cognitive impairment. (1) Altered mental status: (2) Major neurocognitive disorder: -patient does not have decision making capacity to leave AMA -c/w seroquel 25 mg qhs -seroquel 12.5 mg BID prn for agitation -behavioral emergency: seroquel 12.5-25 mg qd prn po OR olanzapine 2.5 mg x1 IM Risk Factors Assessment : Yes Do You Have Access To A Gun?: No Previous Attempt: No Family History of Suicide: No Previous Psychiatric Hospitalization: No Hopelessness: No Smoker: No Protective Factors Assessment Employed: No Supportive Family: Yes Interval History Identifying Information 66 yo woman with no known prior psychiatric history who presented to the ED for the second time in two months for visual hallucinations. She was initially on a 302 commitment and seen by psychiatrist in the ED pending placement. She was ultimately admitted medically for HTN, presumed UTI. Chief Complaint "I was busy yesterday". Review of Systems Notes Stable sleep, good appetite. Subjective Subjective Patient was seen & assessed and interval progress reviewed. Got prn seroquel yesterday afternoon and this afternoon. Vitals remain stable. Today Evelyn believes she is at a motel and that the year is 1968 or 1969. She notes she has been busy packing and organizing her items. She is sitting in her chair this morning making menu selections for her meals tomorrow. Somewhat perseverative about "sometimes just a banana and juice is enough for a quick breakfast" stating this a few times. Also describes how she enjoys making "no bake pies". Cannot recall that her son visited yesterday but with reminder of th is she recalls seeing him briefly. No statements of visual hallucinations this morning. Denies any side effects from the seroquel including no muscle stiffness, slow movements or falls. She does endorse some periods of dizziness when going abruptly from lying to standing when asked directly and reviewed making these transitions slowly to avoid falls. Physical Exam Psychiatric Orientation: alert, oriented to person and cooperative; + not oriented to place and + not oriented to time Apperance: appropriately dressed and appropriately groomed Eye Contact: good eye contact Motor Behavior: no abnormal motor movements and + tremor (slight left hand tremor ); n EPS Speech: normal rate/rhythm/volume of speech Affect: euthymic affect Mood: no depressed mood and no anxious mood Thought Process: + circumstantial thought process and + looseness of associations Thought Content: + delusions Suicidal Thoughts: denies suicidal thoughts Homicidal Thoughts: denies homicidal thoughts Hallucinations: + visual hallucinations; no auditory hallucinations Cognition: remote memory grossly intact; + recent memory not intact, + attention not intact and + language not intact Insight: + impaired insight Judgement: + impaired judgement Vital Signs (Past 24 Hours) Last Vital Signs Temp 37 C 06/22/21 14:40 Pulse 89 06/22/21 14:40 Resp 16 06/22/21 14:40 BP 139/75 06/22/21 14:40 Pulse Ox 99 06/22/21 14:40 Results & Data ([facility]) Laboratory Results Laboratory Results - last 24 hr 06/15/21 10:47 Miscellaneous Test REPORT Current Inpatient Medications Current Inpatient Medications: Current Inpatient Medications Amlodipine Besylate (Amlodipine Besylate 5 Mg Tab) 7.5 mg PO QAM [facility] Stop: 07/12/21 08:59 Last Admin: 06/23/21 09:18 Dose: 7.5 mg Documented by: Cyanocobalamin (Cyanocobalamin 500 Mcg Tablet (Vitamin B-12)) 1,000 mcg PO QAM [facility] Stop: 07/12/21 08:59 Last Admin: 06/23/21 09:18 Dose: 1,000 mcg Documented by: Enoxaparin Sodium (Enoxaparin Inj 40 Mg/0.4 Ml Syr) 40 mg SQ QAM [facility] Stop: 07/13/21 08:59 Last Admin: 06/23/21 09:21 Dose: 40 mg Documented by: Folic Acid (Folic Acid 1 Mg Tab) 1 mg PO QAM [facility] Stop: 07/12/21 08:59 Last Admin: 06/23/21 09:18 Dose: 1 mg Documented by: Hydralazine HCl (Hydralazine Hcl 20 Mg/Ml Vial) 5 mg IV Q6H PRN PRN Reason: Hypertension Stop: 07/11/21 16:24 Last Admin: 06/12/21 06:13 Dose: 5 mg Documented by: Quetiapine Fumarate (Quetiapine Fumarate 25 Mg Tablet) 25 mg PO HS [facility] Stop: 07/20/21 20:59 Last Admin: 06/22/21 19:32 Dose: 25 mg Documented by: Quetiapine Fumarate (Quetiapine Fumarate 25 Mg Tablet) 12.5 mg PO BID PRN PRN Reason: Anxiety/Agitation Stop: 07/22/21 20:59 Last Admin: 06/22/21 23:04 Dose: 12.5 mg Documented by: Thiamine HCl (Thiamine Hcl 100 Mg Tab) 100 mg PO QAM [facility] Stop: 07/12/21 08:59 Last Admin: 06/23/21 09:18 Dose: 100 mg Documented by: (1) Altered mental status Altered mental status type: unspecified Qualified Code(s): R41.82 - Altered mental status, unspecified
[2021-06-23] MEDS: QUEtiapine FUMARATE 25 MG TABLET PO PRN (13:32)
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
[2021-06-23] MEDS: QUEtiapine FUMARATE 25 MG TABLET PO SCH (19:58)
[2021-06-24] MEDS: THIAMINE HCL 100 MG TAB PO SCH (09:01)
[2021-06-24] MEDS: CYANOCOBALAMIN 500 MCG TABLET (VITAMIN B-12) PO SCH (09:01)
[2021-06-24] MEDS: ENOXAPARIN INJ 40 MG/0.4 ML SYR SQ SCH (09:01)
[2021-06-24] MEDS: FOLIC ACID 1 MG TAB PO SCH (09:01)
[2021-06-24] MEDS: amLODIPine BESYLATE 5 MG TAB PO SCH (09:01)
--- NOTE | 2021-06-24 11:44 | Psychiatric Progress Note ---
Date of Service June 24, 2021 Impression / Recommendations Impression 66 yo woman with no prior psychiatric history with new onset visual hallucinations and cognitive changes over the last two months admitted medically for presumed superimposed delirium. 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 This is supported by her report, collateral from her son, neurology consultation findings and score of 0 on the mini-cognitive and poor performance on categorical fluency which further improves the specificity and sensitivity of the mini-cog as a screening tool for dementia.Her waxing and waning presentation with periods of improved cognition can be due to LBD but may also be due to resolving delirium. 06/24/21: remains confused slightly more irritable but cooperative with all assessments,tolerating the Seroquel well without any EPS side effects, rigidity or bradykinesia nor significant hypotension or falls. Given that she has c ontinued to need prn seroquel daily will schedule with lunch to see if tis helps with afternoon visual hallucinations. Plan: continue with seroquel 25mg hs and will schedule seroquel 12.5 mg qlunch with addition 12.5 prn for agitation, will need SNF given dementia and inability to safely function independently (1) Altered mental status: (2) Major neurocognitive disorder: -patient does not have decision making capacity to leave AMA -adding scheduled seroquel 12.5 mg qlunch and continue with seroquel 25 mg qhs -seroquel 12.5 mg qd prn for agitation -behavioral emergency: seroquel 12.5-25 mg qd prn po OR olanzapine 2.5 mg x1 IM Risk Factors Assessment : Yes Do You Have Access To A Gun?: No Previous Attempt: No Family History of Suicide: No Previous Psychiatric Hospitalization: No Hopelessness: No Smoker: No Protective Factors Assessment Employed: No Supportive Family: Yes Interval History Identifying Information 66 yo woman with no known prior psychiatric history who presented to the ED for the second time in two months for visual hallucinations. She was initially on a 302 commitment and seen by psychiatrist in the ED pending placement. She was ultimately admitted medically for HTN, presumed UTI. Chief Complaint "Today is not good so far". Review of Systems Notes She denies any pain, sleep and appetite stable. Subjective Subjective Patient was seen & assessed and interval progress reviewed. She received one prn seroquel dose yesterday and was adherent with qhs dose. Today she is starting to meet with OT for an evaluation on my assessment. She is oriented to being in "someplace like a hospital" today and knows it is June and 2020. However, she is sitting in soiled clothing and seems unaware or unable to figure out how to manage this. She expresses some irritability. Later in the afternoon was reportedly seeing a murderer in her room and accepted prn seroqel. She denies any movement side effects or other side effects from the seroquel. Physical Exam Psychiatric Orientation: alert, oriented x 3 (knows in hospital but not which one) and cooperative Apperance: + disheveled Eye Contact: + fair eye contact Motor Behavior: no abnormal motor movements; n EPS Speech: normal rate/rhythm/volume of speech Affect: + irritable affect Mood: + irritable mood Thought Process: + circumstantial thought process and + looseness of associations Thought Content: + paranoid Suicidal Thoughts: denies suicidal thoughts Homicidal Thoughts: denies homicidal thoughts Hallucinations: + visual hallucinations; no auditory hallucinations Cognition: remote memory grossly intact; + recent memory not intact, + attention not intact and + language not intact Insight: + impaired insight Judgement: + impaired judgement Vital Signs (Past 24 Hours) Last Vital Signs Temp 36.7 C 06/24/21 07:06 Pulse 87 06/24/21 07:06 Resp 16 06/24/21 07:06 BP 161/87 H 06/24/21 07:06 Pulse Ox 97 06/24/21 07:06 Results & Data ([facility]) Current Inpatient Medications Current Inpatient Medications: Current Inpatient Medications Amlodipine Besylate (Amlodipine Besylate 5 Mg Tab) [facility] Stop: 07/12/21 08:59 Last Admin: 06/24/21 09:01 Dose: 7.5 mg Documented by: Cyanocobalamin (Cyanocobalamin 500 Mcg Tablet (Vitamin B-12)) 1,000 mcg PO QAM [facility] Stop: 07/12/21 08:59 Last Admin: 06/24/21 09:01 Dose: 1,000 mcg Documented by: Enoxaparin Sodium (Enoxaparin Inj 40 Mg/0.4 Ml Syr) 40 mg SQ QAM [facility] Stop: 07/13/21 08:59 Last Admin: 06/24/21 09:01 Dose: 40 mg Documented by: Folic Acid (Folic Acid 1 Mg Tab) 1 mg PO QAM [facility] Stop: 07/12/21 08:59 Last Admin: 06/24/21 09:01 Dose: 1 mg Documented by: Hydralazine HCl (Hydralazine Hcl 20 Mg/Ml Vial) 5 mg IV Q6H PRN PRN Reason: Hypertension Stop: 07/11/21 16:24 Last Admin: 06/12/21 06:13 Dose: 5 mg Documented by: Quetiapine Fumarate (Quetiapine Fumarate 25 Mg Tablet) 25 mg PO HS [facility] Stop: 07/20/21 20:59 Last Admin: 06/23/21 19:58 Dose: 25 mg Documented by: Quetiapine Fumarate (Quetiapine Fumarate 25 Mg Tablet) 12.5 mg PO BID PRN PRN Reason: Anxiety/Agitation Stop: 07/22/21 20:59 Last Admin: 06/23/21 13:32 Dose: 12.5 mg Documented by: Thiamine HCl (Thiamine Hcl 100 Mg Tab) 100 mg [facility] Stop: 07/12/21 08:59 Last Admin: 06/24/21 09:01 Dose: 100 mg Documented by: (1) Altered mental status Altered mental status type: unspecified Qualified Code(s): R41.82 - Altered mental status, unspecified
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
[2021-06-24] MEDS: QUEtiapine FUMARATE 25 MG TABLET PO PRN (15:23)
[2021-06-24] MEDS: QUEtiapine FUMARATE 25 MG TABLET PO SCH (21:11)
[2021-06-25] MEDS: ENOXAPARIN INJ 40 MG/0.4 ML SYR SQ SCH (09:16)
[2021-06-25] MEDS: amLODIPine BESYLATE 5 MG TAB PO SCH (09:16)
[2021-06-25] MEDS: FOLIC ACID 1 MG TAB PO SCH (09:16)
[2021-06-25] MEDS: CYANOCOBALAMIN 500 MCG TABLET (VITAMIN B-12) PO SCH (09:16)
[2021-06-25] MEDS: THIAMINE HCL 100 MG TAB PO SCH (09:17)
[2021-06-25] MEDS: QUEtiapine FUMARATE 25 MG TABLET PO SCH ×2 (09:17→22:05)
--- NOTE | 2021-06-25 13:24 | Psychiatric Progress Note ---
Date of Service June 25, 2021 Impression / Recommendations Impression As per Dr. Pedersen: 66 yo woman with no prior psychiatric history with new onset visual hallucinations and cognitive changes over the last two months admitted medically for presumed superimposed delirium. 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 This is supported by her report, collateral from her son, neurology consultation findings and score of 0 on the mini-cognitive and poor performance on categorical fluency which further improves the specificity and sensitivity of the mini-cog as a screening tool for dementia.Her waxing and waning presentation with periods of improved cognition can be due to LBD but may also be due to resolving delirium. 06/25/21--patient's hallucinations and disorganization not yet as well controlled as when taking Zyprexa but seemed to have paradoxical disinhibition on higher doses of Zyprexa. (1) Altered mental status: (2) Major neurocognitive disorder: increase Seroquel to 12.5 mg lunch and 37.5 mg hs and monitor. Risk Factors Assessment : Yes Do You Have Access To A Gun?: No Previous Attempt: No Family History of Suicide: No Previous Psychiatric Hospitalization: No Hopelessness: No Smoker: No Protective Factors Assessment Employed: No Supportive Family: Yes Interval History Identifying Information 66 yo woman with no known prior psychiatric history who presented to the ED for the second time in two months for visual hallucinations. She was initially on a 302 commitment and seen by psychiatrist in the ED pending placement. She was ultimately admitted medically for HTN, presumed UTI. Chief Complaint "Do you have any toys for the kids?". Review of Systems Notes denies pain, no EPS or akathisia. Subjective Subjective Patient was seen & assessed and interval progress reviewed with liaison, interim care/progress reviewed. Continues to be confused and responding to internal stimuli. Reports she "isn't great" today as doesn't understand what is happening with her stay due to memory issues and continues to see children, "you know like toddlers" in her room and believes that someone has sent them to watch her. Physical Exam Psychiatric Orientation: alert, oriented to person and cooperative; + not oriented to time Apperance: appropriately dressed and appropriately groomed Eye Contact: + fair eye contact Motor Behavior: no abnormal motor movements; n EPS Speech: normal rate/rhythm/volume of speech Affect: + anxious affect Mood: no depressed mood Thought Process: + perseveration; + thought process not clear or coherent Thought Content: + delusions Suicidal Thoughts: denies suicidal thoughts Homicidal Thoughts: denies homicidal thoughts Hallucinations: + visual hallucinations Cognition: + recent memory not intact and + attention not intact Insight: + impaired insight Judgement: + impaired judgement Vital Signs (Past 24 Hours) Last Vital Signs Temp 36.8 C 06/25/21 08:33 Pulse 78 06/25/21 08:33 Resp 18 06/25/21 08:33 BP 153/83 H 06/25/21 08:33 Pulse Ox 99 06/25/21 08:33 Results & Data ([facility]) Current Inpatient Medications Current Inpatient Medications: Current Inpatient Medications Amlodipine Besylate (Amlodipine Besylate 5 Mg Tab) 7.5 mg PO [facility] Stop: 07/12/21 08:59 Last Admin: 06/25/21 09:16 Dose: 7.5 mg Documented by: Cyanocobalamin (Cyanocobalamin 500 Mcg Tablet (Vitamin B-12)) 1,000 mcg PO [facility] Stop: 07/12/21 08:59 Last Admin: 06/25/21 09:16 Dose: 1,000 mcg Documented by: Enoxaparin Sodium (Enoxaparin Inj 40 Mg/0.4 Ml Syr) 40 mg SQ [facility] Stop: 07/13/21 08:59 Last Admin: 06/25/21 09:16 Dose: 40 mg Documented by: Folic Acid (Folic Acid 1 Mg Tab) 1 mg PO [facility] Stop: 07/12/21 08:59 Last Admin: 06/25/21 09:16 Dose: 1 mg Documented by: Hydralazine HCl (Hydralazine Hcl 20 Mg/Ml Vial) 5 mg IV Q6H PRN PRN Reason: Hypertension Stop: 07/11/21 16:24 Last Admin: 06/12/21 06:13 Dose: 5 mg Documented by: Quetiapine Fumarate (Quetiapine Fumarate 25 Mg Tablet) 12.5 mg PO DAILY PRN PRN Reason: Anxiety/Agitation Stop: 07/22/21 16:09 Quetiapine Fumarate (Quetiapine Fumarate 25 Mg Tablet) [facility] Stop: 07/25/21 10:29 Last Admin: 06/25/21 09:17 Dose: 12.5 mg Documented by: Thiamine HCl (Th[facility]amine Hcl 100 Mg Tab) [facility] [place] [facility] Stop: 07/12/21 08:59 Last Admin: 06/25/21 09:17 Dose: 100 mg Documented by: (1) Altered mental status Altered mental status type: unspecified Qualified Code(s): R41.82 - Altered mental status, unspecified
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
[2021-06-25] MEDS: QUEtiapine FUMARATE 25 MG TABLET PO PRN (23:51)
[2021-06-26 08:38] LABS: Creatinine Clr Calc Pharmacy 56.4 ml/min; Est GFR (African American) 82.8 ml/min; Est GFR (Non-African American) 71.4 ml/min
[2021-06-26] MEDS: ENOXAPARIN INJ 40 MG/0.4 ML SYR SQ SCH (09:25)
[2021-06-26] MEDS: FOLIC ACID 1 MG TAB PO SCH (09:26)
[2021-06-26] MEDS: THIAMINE HCL 100 MG TAB PO SCH (09:26)
[2021-06-26] MEDS: amLODIPine BESYLATE 5 MG TAB PO SCH (09:26)
[2021-06-26] MEDS: CYANOCOBALAMIN 500 MCG TABLET (VITAMIN B-12) PO SCH (09:26)
[2021-06-26] MEDS: QUEtiapine FUMARATE 25 MG TABLET PO SCH ×2 (09:30→21:18)
--- NOTE | 2021-06-26 13:17 | Communication Note ---
Date of Service: June 26, 2021 Patient continues to hallucinate. Reported to liaison she felt a little dizzy overnight. Did receive prn Seroquel in addition to the hs increase. Gait ba seline and no hypotension noted. Will keep dose same today, if unable to titrate further, consider Risperdal vs retrial of Zyprexa as symptoms not as well controlled over past several days.
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
[2021-06-27] MEDS: FOLIC ACID 1 MG TAB PO SCH (08:27)
[2021-06-27] MEDS: CYANOCOBALAMIN 500 MCG TABLET (VITAMIN B-12) PO SCH (08:28)
[2021-06-27] MEDS: amLODIPine BESYLATE 5 MG TAB PO SCH (08:28)
[2021-06-27] MEDS: THIAMINE HCL 100 MG TAB PO SCH (08:28)
[2021-06-27] MEDS: ENOXAPARIN INJ 40 MG/0.4 ML SYR SQ SCH (08:30)
[2021-06-27] MEDS: QUEtiapine FUMARATE 25 MG TABLET PO SCH ×2 (09:33→20:01)
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
--- NOTE | 2021-06-27 16:27 | Psychiatric Progress Note ---
Date of Service June 27, 2021 Impression / Recommendations Impression As per Dr. Pedersen: 66 yo woman with no prior psychiatric history with new onset visual hallucinations and cognitive changes over the last two months admitted medically for presumed superimposed delirium. 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 This is supported by her report, collateral from her son, neurology consultation findings and score of 0 on the mini-cognitive and poor performance on categorical fluency which further improves the specificity and sensitivity of the mini-cog as a screening tool for dementia.Her waxing and waning presentation with periods of improved cognition can be due to LBD but may also be due to resolving delirium. 06/27/21--interval improvement Plan: intermittent visual alvarez related to presumed lewy body dementia is partially responsive to antipsychotics. BP and gait stable so will increase hs dose. She will continue to have periods of confusion and need reoriented so would benefit from higher level of supervision when discharged from the hospital. She responds readily to distraction and redirection and is not suicidal or aggressive. CM is assisting son in determining level of supports that can be provided in the community given his work schedule. Plan: titrate Seroquel 50 mg po qhs, continue midday 12.5 mg dose for now. Would like to simplify regimen for discharge. Here she also takes Seroquel 12.5 mg prn. 25 mg tabs are somewhat challenging to split. Consider consolidating to hs dosing. (1) Altered mental status: (2) Major neurocognitive disorder: Risk Factors Assessment : Yes Do You Have Access To A Gun?: No Previous Attempt: No Family History of Suicide: No Previous Psychiatric Hospitalization: No Hopelessness: No Smoker: No Protective Factors Assessment Employed: No Supportive Family: Yes Interval History Identifying Information 66 yo woman with no known prior psychiatric history who presented to the ED for the second time in two months for visual hallucinations. She was initially on a 302 commitment and seen by psychiatrist in the ED pending placement. She was ultimately admitted medically for HTN, presumed UTI. Chief Complaint "I can't believe that she'd get up on the ledge like that". Subjective Subjective Patient was seen & assessed and interval progress reviewed with liaison, nursing associate, and BRO Reyes. The patient woke up confused at 4 am and was reported visual hallucination of her baby daughter on the window ledge. She said it upset her but "not as much as those guys with the guns did". She states she hasn't seen those for sometime and is less paranoid overall in that doesn't believe she is "constantly being messed with". She has mistaken condensation on the window for blood in the past or reports things as if they are happening currently. She feels that overall she is feeling better with her current medication and would like to continue it. She does best when engaged with staff and we were walking together in the hallway. Physical Exam Psychiatric Orientation: alert, oriented x 3 (knows in hospital but not which one) and cooperative Apperance: appropriately dressed and appropriately groomed Eye Contact: + fair eye contact Motor Behavior: no abnormal motor movements; n EPS Speech: normal rate/rhythm/volume of speech Affect: euthymic affect Mood: no anxious mood Thought Process: + circumstantial thought process Thought Content: + delusions Suicidal Thoughts: denies suicidal thoughts Homicidal Thoughts: denies homicidal thoughts Hallucinations: + visual hallucinations; no auditory hallucinations Cognition: + recent memory not intact Insight: + impaired insight Judgement: + limited judgement Vital Signs (Past 24 Hours) Last Vital Signs Temp 36.8 C 06/27/21 15:43 Pulse 75 06/27/21 15:43 Resp 20 06/27/21 15:43 BP 126/71 06/27/21 15:43 Pulse Ox 100 06/27/21 15:43 Results & Data ([facility]) Current Inpatient Medications Current Inpatient Medications: Current Inpatient Medications Amlodipine Besylate (Amlodipine Besylate 5 Mg Tab) 7.5 mg PO Q[facility] Stop: 07/12/21 08:59 Last Admin: 06/27/21 08:28 Dose: 7.5 mg Documented by: Cyanocobalamin (Cyanocobalamin 500 Mcg Tablet (Vitamin B-12)) 1,000 mcg PO Q[facility] Stop: 07/12/21 08:59 Last Admin: 06/27/21 08:28 Dose: 1,000 mcg Documented by: Enoxaparin Sodium (Enoxaparin Inj 40 Mg/0.4 Ml Syr) 40 mg SQ [facility] Stop: 07/13/21 08:59 Last Admin: 06/27/21 08:30 Dose: 40 mg Documented by: Folic Acid (Folic Acid 1 Mg Tab) 1 mg PO QAM [facility] Stop: 07/12/21 08:59 Last Admin: 06/27/21 08:27 Dose: 1 mg Documented by: Hydralazine HCl (Hydralazine Hcl 20 Mg/Ml Vial) 5 mg IV Q6H PRN PRN Reason: Hypertension Stop: 07/11/21 16:24 Last Admin: 06/12/21 06:13 Dose: 5 mg Documented by: Quetiapine Fumarate (Quetiapine Fumarate 25 Mg Tablet) 12.5 mg PO DAILY PRN PRN Reason: Anxiety/Agitation Stop: 07/22/21 16:09 Last Admin: 06/25/21 23:51 Dose: 12.5 mg Documented by: Quetiapine Fumarate (Quetiapine Fumarate 25 Mg Tablet) 12.5 mg PO DAILYBL [facility] Stop: 07/25/21 10:29 Last Admin: 06/27/21 09:33 Dose: 12.5 mg Documented by: Quetiapine Fumarate (Quetiapine Fumarate 25 Mg Tablet) 37.5 mg PO HS [facility] Stop: 07/25/21 20:59 Last Admin: 06/26/21 21:18 Dose: 37.5 mg Documented by: Thiamine HCl (Thiamine Hcl 100 Mg Tab) 100 mg PO QAM [facility] Stop: 07/12/21 08:59 Last Admin: 06/27/21 08:28 Dose: 100 mg Documented by: (1) Altered mental status Altered mental status type: unspecified Qualified Code(s): R41.82 - Altered mental status, unspecified
[2021-06-28] MEDS: ENOXAPARIN INJ 40 MG/0.4 ML SYR SQ SCH (08:18)
[2021-06-28] MEDS: CYANOCOBALAMIN 500 MCG TABLET (VITAMIN B-12) PO SCH (08:19)
[2021-06-28] MEDS: amLODIPine BESYLATE 5 MG TAB PO SCH (08:19)
[2021-06-28] MEDS: FOLIC ACID 1 MG TAB PO SCH (08:20)
[2021-06-28] MEDS: QUEtiapine FUMARATE 25 MG TABLET PO SCH ×2 (11:36→21:21)
[2021-06-28] MEDS: THIAMINE HCL 100 MG TAB PO SCH (11:37)
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
--- NOTE | 2021-06-28 16:59 | Psychiatric Progress Note ---
Date of Service June 28, 2021 Impression / Recommendations Impression As per Dr. Pedersen: 66 yo woman with no prior psychiatric history with new onset visual hallucinations and cognitive changes over the last two months admitted medically for presumed superimposed delirium. 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 This is supported by her report, collateral from her son, neurology consultation findings and score of 0 on the mini-cognitive and poor performance on categorical fluency which further improves the specificity and sensitivity of the mini-cog as a screening tool for dementia.Her waxing and waning presentation with periods of improved cognition can be due to LBD but may also be due to resolving delirium. 06/27/21--interval improvement but intermittent alvarez. redirects to talk about past pets. Plan: continue current dose of Seroquel, may increase midday dose tomorrow. (1) Altered mental status: (2) Major neurocognitive disorder: Risk Factors Assessment : Yes Do You Have Access To A Gun?: No Previous Attempt: No Family History of Suicide: No Previous Psychiatric Hospitalization: No Hopelessness: No Smoker: No Protective Factors Assessment Employed: No Supportive Family: Yes Interval History Identifying Information 66 yo woman with no known prior psychiatric history who presented to the ED for the second time in two months for visual hallucinations. She was initially on a 302 commitment and seen by psychiatrist in the ED pending placement. She was ultimately admitted medically for HTN, presumed UTI. Chief Complaint "yeah I can't believe she still goes out on the ledge". Review of Systems Notes denies FINK, N/V, D, worsening tremor Subjective Subjective Patient was seen & assessed and interval progress reviewed with nursing, interim progress reviewed. She got lost during a walk on the floor. Wakes up early and denies being confused but immediately perseverates on her daughter. She is preoccupied with people outside but there are construction workers on end of building. She denies sedation after noon dose of Seroquel. States she slept better. Gait baseline for patient. Physical Exam Psychiatric Orientation: alert, oriented to person and cooperative; + not oriented to time Apperance: appropriately dressed and appropriately groomed Eye Contact: good eye contact Motor Behavior: no abnormal motor movements Speech: normal rate/rhythm/volume of speech Affect: euthymic affect Mood: + anxious mood Thought Process: + circumstantial thought process Thought Content: + delusions Suicidal Thoughts: denies suicidal thoughts Homicidal Thoughts: denies homicidal thoughts Hallucinations: no auditory hallucinations and no visual hallucinations Vital Signs (Past 24 Hours) Last Vital Signs Temp 36.8 C 06/28/21 16:07 Pulse 77 06/28/21 16:07 Resp 16 06/28/21 16:07 BP 143/76 H 06/28/21 16:07 Pulse Ox 98 06/28/21 16:07 Results & Data ([facility]) Current Inpatient Medications Current Inpatient Medications: Current Inpatient Medications Amlodipine Besylate (Amlodipine Besylate 5 Mg Tab) 7.5 mg PO [facility] Stop: 07/12/21 08:59 Last Admin: 06/28/21 08:19 Dose: 7.5 mg Documented by: Enoxaparin Sodium (Enoxaparin Inj 40 Mg/0.4 Ml Syr) 40 mg SQ [facility] Stop: 07/13/21 08:59 Last Admin: 06/28/21 08:18 Dose: 40 mg Documented by: Hydralazine HCl (Hydralazine Hcl 20 Mg/Ml Vial) 5 mg IV Q6H PRN PRN Reason: Hypertension Stop: 07/11/21 16:24 Last Admin: 06/12/21 06:13 Dose: 5 mg Documented by: Multivitamins/Minerals (Cerovite Adv Formula Tab) 1 tab [facility] Stop: 07/29/21 08:59 Quetiapine Fumarate (Quetiapine Fumarate 25 Mg Tablet) 12.5 mg PO DAILY PRN PRN Reason: Anxiety/Agitation Stop: 07/22/21 16:09 Last Admin: 06/25/21 23:51 Dose: 12.5 mg Documented by: Quetiapine Fumarate (Quetiapine Fumarate 25 Mg Tablet) 12.5 mg PO DAILYBL [facility] Stop: 07/25/21 10:29 Last Admin: 06/28/21 11:36 Dose: 12.5 mg Documented by: Quetiapine Fumarate (Quetiapine Fumarate 25 Mg Tablet) 50 mg PO [facility] Stop: 07/27/21 20:59 Last Admin: 06/27/21 20:01 Dose: 50 mg Documented by: (1) Altered mental status Altered mental status type: unspecified Qualified Code(s): R41.82 - Altered mental status, unspecified
[2021-06-29 06:12] LABS: Hematocrit (blood only) 38.1 % (37-47); Hemoglobin 12.4 g/dL (12.0-16.0); Mean Corpuscular Hgb Conc 32.5 g/dL (32-36); Mean Platelet Volume 11.4 fL (7.4-10.4); Platelet Count 118 K/uL (130-400); RDW Coefficient of Variation 12.9 % (11.5-14.5); RDW Standard Deviation 43.5 fL (36.4-46.3); Red Blood Count 4.14 M/uL (4.2-5.4); White Blood Count 4.24 K/uL (4.8-10.8)
[2021-06-29 06:42] LABS: Calcium 8.6 mg/dl (8.5-10.1); Creatinine Clr Calc Pharmacy 46.4 ml/min; Est GFR (African American) 65.5 ml/min; Est GFR (Non-African American) 56.5 ml/min; Magnesium 2.1 mg/dl (1.8-2.4); Potassium 4.1 mmol/L (3.5-5.1)
[2021-06-29] MEDS: CEROVITE ADV FORMULA TAB PO SCH (07:47)
[2021-06-29] MEDS: amLODIPine BESYLATE 5 MG TAB PO SCH (07:47)
[2021-06-29] MEDS: ENOXAPARIN INJ 40 MG/0.4 ML SYR SQ SCH (07:47)
[2021-06-29] MEDS: QUEtiapine FUMARATE 25 MG TABLET PO SCH ×2 (10:21→20:45)
--- NOTE | 2021-06-29 11:59 | Communication Note ---
Date of Service: June 29, 2021 continues with visual hallucinations but redirectible, no agitation, patient is tolerating Seroquel and is able to hold conversation and discuss risks as sociated with atypicals and fall risk. Briefly updated Dr. Braxton as psychiatric consultatnt to [facility] who will reportedly assist with medication management/paying for meds. Seroquel 25 mg mid day, 50 mg hs target dose. No orthostasis.
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
--- NOTE | 2021-06-29 14:36 | XRay Report ---
XR foot RT 2V, XR ankle RT 2V HISTORY: 66 years-old Female edema, pain acute pain of the right foot and ankle soft tissue swelling COMPARISON: None TECHNIQUE: 2 views of the right foot and 2 views of the right ankle FINDINGS: FOOT: Demineralized appearance the bones. Mild to moderate multifocal osteoarthritis. Arterial calcificatio ns. Mild spurring of the calcaneus. Mild diffuse soft tissue swelling. No acute fracture, dislocation or opaque foreign body. ANKLE: Moderate circumferential soft tissue swelling of the ankle. Limited lateral view secondary to positio daniel. Mild osteoarthritis. No acute fracture, dislocation or osteochondral defect. Arterial calcifica tions. Spurring of the calcaneus. IMPRESSION: Soft tissue swelling without acute fracture or dislocation. ACT 112: Negative or not required by law. The above report was generated using voice recognition software. It may contain grammatical, syntax o r spelling errors. Electronically signed by: Pio Oreilly M.D. 06/29/2021 2:35 PM
--- NOTE | 2021-06-29 14:52 | Ultrasound Report ---
US venous doppler LE RT CLINICAL HISTORY: edema COMPARISON: None available at the time of this dictation. TECHNIQUE: Right lower extremity real-time compression venous ultrasound with Color Doppler imaging. Utilizing real-time ultrasonic imaging multiple real time high-resolution ultrasonic images with comp ression and noncompression maneuvers of the deep venous system in addition to color doppler imaging w ere performed from the common femoral vein through the proximal calf veins. FINDINGS: Currently there is normal compressibility of the deep venous system from the common femoral vein thro ugh the proximal calf veins. No current evidence of acute thrombosis is identified. Impression: No evidence of deep venous thrombus. ACT 112: Negative or not required by law. Electronically signed by: Tyrese Cruz M.D. 06/29/2021 2:51 PM
[2021-06-29] MEDS ORDERED: ACETAMINOPHEN 325 MG TAB PO PRN (18:27)
[2021-06-30] MEDS: CEROVITE ADV FORMULA TAB PO SCH (07:36)
[2021-06-30] MEDS: amLODIPine BESYLATE 5 MG TAB PO SCH (07:36)
[2021-06-30] MEDS: ENOXAPARIN INJ 40 MG/0.4 ML SYR SQ SCH (07:38)
[2021-06-30] MEDS: QUEtiapine FUMARATE 25 MG TABLET PO SCH ×2 (09:59→21:25)
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
--- NOTE | 2021-06-30 15:44 | Psychiatric Progress Note ---
Date of Service June 30, 2021 Impression / Recommendations Impression As per Dr. Pedersen: 66 yo woman with no prior psychiatric history with new onset visual hallucinations and cognitive changes over the last two months admitted medically for presumed superimposed delirium. 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 This is supported by her report, collateral from her son, neurology consultation findings and score of 0 on the mini-cognitive and poor performance on categorical fluency which further improves the specificity and sensitivity of the mini-cog as a screening tool for dementia.Her waxing and waning presentation with periods of improved cognition can be due to LBD but may also be due to resolving delirium. 06/30/21--improving Plan: continue current dose of Seroquel. (1) Altered mental status: (2) Major neurocognitive disorder: Risk Factors Assessment : Yes Do You Have Access To A Gun?: No Previous Attempt: No Family History of Suicide: No Previous Psychiatric Hospitalization: No Hopelessness: No Smoker: No Protective Factors Assessment Employed: No Supportive Family: Yes Interval History Identifying Information 66 yo woman with no known prior psychiatric history who presented to the ED for the second time in two months for visual hallucinations. She was initially on a 302 commitment and seen by psychiatrist in the ED pending placement. She was ultimately admitted medically for HTN, presumed UTI. Chief Complaint "I'm don't know what's happening, I'm ready to go though". Subjective Subjective Patient was seen & assessed and interval progress reviewed. Continues to respond to visual hallucinations at times but no nursing concerns overnight. Tolerating Seroquel without dizziness. She feels she wakes up too early in the hospital as "they mess with me here" Physical Exam Psychiatric alert, cooperative, baseline hand tremor, no EPS, eating well/independently, confused/concrete but readily redirected to reality conversation, did not appear to be responding to internal stimuli. No SI/HI/alvarez. Vital Signs (Past 24 Hours) Last Vital Signs Temp 37.1 C 06/30/21 07:45 Pulse 83 06/30/21 07:45 Resp 22 06/30/21 07:45 BP 148/83 H 06/30/21 07:45 Pulse Ox 98 06/30/21 07:45 Results & Data ([facility]) Current Inpatient Medications Current Inpatient Medications: Current Inpatient Medications Acetaminophen (Acetaminophen 325 Mg Tab) 650 mg PO Q4H PRN PRN Reason: FEVER OR PAIN Stop: 07/29/21 18:26 Last Admin: 06/29/21 19:04 Dose: 650 mg Documented by: Amlodipine Besylate (Amlodipine Besylate 5 Mg Tab) [facility] Stop: 07/12/21 08:59 Last Admin: 06/30/21 07:36 Dose: 7.5 mg Documented by: Enoxaparin Sodium (Enoxaparin Inj 40 Mg/0.4 Ml Syr) 40 mg SQ [facility] Stop: 07/13/21 08:59 Last Admin: 06/30/21 07:38 Dose: 40 mg Documented by: Hydralazine HCl (Hydralazine Hcl 20 Mg/Ml Vial) 5 mg IV Q6H PRN PRN Reason: Hypertension Stop: 07/11/21 16:24 Last Admin: 06/12/21 06:13 Dose: 5 mg Documented by: Multivitamins/Minerals (Cerovite Adv Formula Tab) 1 tab PO [facility] Stop: 07/29/21 08:59 Last Admin: 06/30/21 07:36 Dose: 1 tab Documented by: Quetiapine Fumarate (Quetiapine Fumarate 25 Mg Tablet) 12.5 mg PO DAILY PRN PRN Reason: Anxiety/Agitation Stop: 07/22/21 16:09 Last Admin: 06/25/21 23:51 Dose: 12.5 mg Documented by: Quetiapine Fumarate (Quetiapine Fumarate 25 Mg Tablet) 50 mg PO [facility] Stop: 07/27/21 20:59 Last Admin: 06/29/21 20:45 Dose: 50 mg Documented by: Quetiapine Fumarate (Quetiapine Fumarate 25 Mg Tablet) [facility] Stop: 07/29/21 10:29 Last Admin: 06/30/21 09:59 Dose: 25 mg Documented by: (1) Altered mental status Altered mental status type: unspecified Qualified Code(s): R41.82 - Altered mental status, unspecified
[2021-06-30] MEDS: QUEtiapine FUMARATE 25 MG TABLET PO PRN (18:02)
[2021-06-30] MEDS ORDERED: FUROSEMIDE 20 MG TAB PO ONE (18:30)
[2021-07-01] MEDS: amLODIPine BESYLATE 5 MG TAB PO SCH (09:27)
[2021-07-01] MEDS: ENOXAPARIN INJ 40 MG/0.4 ML SYR SQ SCH (09:28)
[2021-07-01] MEDS: CEROVITE ADV FORMULA TAB PO SCH (09:29)
[2021-07-01] MEDS: QUEtiapine FUMARATE 25 MG TABLET PO SCH (09:29)
[2021-07-01] MEDS ORDERED: Nursing to Pharmacy Communication SCH (12:30)
[2021-07-01] MEDS ORDERED: QUEtiapine FUMARATE 25 MG TABLET PO SCH (12:30)
[2021-07-01] MEDS ORDERED: amLODIPine BESYLATE 5 MG TAB PO SCH (12:30)
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
== END 2021-07-01 15:51 | disposition home or self-care (01) | DRG 57 ==
LOC: 3W 12:50 → ED 12:50 → SUATTDRO 06-11 12:26 → 3W 06-11 16:11 → SUATTDRO 06-12 12:15

== ENCOUNTER 2021-08-16 09:19 | Inpatient (IN) ==
[2021-08-16] MEDS ORDERED: SODIUM CHLORIDE 0.9% 500 ML IV SCH (09:30)
--- NOTE | 2021-08-16 09:34 | Emergency Department Note ---
Impression & Plan COVID-19, Weakness, Confusion ED Provider Note Provider: Ronal Hamm MD DATE OF SERVICE: 08/16/2021 CHIEF COMPLAINT: Weakness, confusion HISTORY OF PRESENT ILLNESS: Patient is a 66-year-old female past medical history including neurocognitive disorder, and hypertension presenting here today via ambulance from [facility]. Patient presents with her son today who she lives with. By EMS and report from the patient and her son for the last 2 to 3 days the patient with apparent significant weakness with some cough and mainly just laying in bed. Not eating or drinking this time and states no appetite. Denies any vomiting or abdominal pain. Reports an episode of loose stool and saw the her self on the floor earlier today. Denies significant chest pain or shortness of breath. There is a some generalized malaise and myalgias. No falls reported. No sick contacts. Patient does have 1 dose of the Pfizer vaccine by son's report. Was going for basic blood work today and when staff at [facility] [place] saw the patient's condition they sent her here for further evaluation. Patient denies hallucinations. No recent changes in medications. No Tylenol or Motrin this morning. No breakfast this morning. REVIEW OF SYSTEMS: A total of 10 review of systems was obtained and negative except as stated above in the HPI. PAST MEDICAL HISTORY: As noted above MEDICATIONS: Reviewed home medications SOCIAL HISTORY: Lives at home with son, not currently smoking PHYSICAL EXAM: GENERAL: alert and oriented in no acute distress on stretcher but fatigued in appearance and a bit slow to answer Head: normocephalic and atraumatic EYES: No injection, discharge or icterus. PERRL, EOMI. NECK: Trachea midline. ENT: Mucous membranes pink and moist. LUNGS: Airway patent. No retractions. Breath sounds clear with intermittent coughing HEART: Regular mildly tachycardic rate and rhythm. No chest wall tenderness ABDOMEN: Soft and non-tender, without guarding or rebound. SKIN: Acyanotic, warm, dry, without rashes EXTREMITIES: Without swelling, tenderness or deformity NEUROLOGICAL: No focal deficits. No aphasia. No facial droop or slurred speech. Normal strength and tone in the extremities. Sensation to gross touch normal. Patient quite fatigued in appearance and somewhat slow to answer. EK bpm sinus tachycardia. No acute ST segment elevation with incomplete right bundle branch block and anterior left fascicular block. QTc 489. Some baseline artifact. CONTINUOUS CARDIAC MONITORING: was ordered and showed a heart rate of 90s-100s bpm in normal sinus rhythm to sinus tachycardia Patient's laboratory studies and imaging reviewed. Differential includes Infection, dehydration, metabolic abnormality, hypo/hyperglycemia, electrolyte disturbance, anemia, hypoxia, cardiac sources, intracerebral event, toxicologic, neurologic, as well as other pathologies. IMPRESSION/MEDICAL DECISION MAKING: Patient presents with cough and generalized weak with decreased intake for the past several days. 1 dose of the Covid vaccine. Does have some cough now. Not noted to be significantly hypoxic. Denies significant pain. Benign abdomen on exam. Episode of diarrhea earlier. Given some IV fluids here as she does appear somewhat dehydrated. Basic labs and Covid test completed. Covid test does return positive. Not singly hypoxic but again is suffering from significant weakness. Chest x-ray ordered. Per review and radiology report of left airspace opacity is visualized question pneumonia versus on her underlying Covid that we found today. Patient is febrile here. Some Tylenol ordered. Patient with some chronic thrombocytopenia. Mild leukopenia also chronic. CRP elevated at 9. Positive Covid test again. Procalcitonin not significantly elevated. No transaminitis. No significant renal dysfunction however low bicarb with mild acidosis. No lactate elevation. Again the patient seems somewhat confused but I doubt acute intracranial bleed or stroke. Kimani she is likely somewhat encephalopathic from her general illness and decreased intake. Again given some IV fluid. Discussed with patient and son at bedside. Given her weakened state discussed further care here at the hospital and the hospitalist group was contacted. DIAGNOSIS: COVID-19, weakness, chronic thrombocytopenia, confusion DISPOSITION: Hospitalist will evaluate Son was updated and agreed with this plan at bedside. Past Med/Surg History Medical History (Updated 08/16/21 @ 13:38 by French Red MD) Dementia Hallucination, visual Social History Smoking Status: Never smoker Hx Alcohol Use: No Hx Substance Use: No Preferred Language: Amharic Communication Ability: Effective [employer] Required: No Beliefs That Will Affect Care: None marital status: Single Current Living Situation: Family Current Living Situation Comment: son How many Children do You have: 2 Feels Safe at Home: Yes Assistive Devices: Cane Allergies Allergies Allergy/AdvReac Type Severity Reaction Status Date / Time No Known Allergies Allergy Mild Unverified 08/16/21 12:10 Home Meds Home Medications Medication Instructions Recorded Confirmed aspirin-caffeine 400 mg-32 mg 1 tab PO Q6H PRN 06/09/21 08/16/21 tablet (Anacin) loratadine 10 mg tablet (Claritin) 10 mg PO DAILY PRN 06/09/21 08/16/21 quetiapine 25 mg tablet 100 mg PO HS 08/16/21 08/16/21 Previous Rx's Medication Instructions Recorded amlodipine 5 mg tablet (Norvasc) 7.5 mg PO QAM #14 tab 07/01/21 multivitamin-ferrous 1 tab PO QAM #1 tab 07/01/21 fumarate-folic acid 18 mg-400 mcg tablet (Certavite-Antioxidant) quetiapine 25 mg tablet 25 mg PO DAILYBL #14 tab 07/01/21 Results & Data (ED) Vital Signs Vital Signs - 24 hr 08/16/21 09:29 08/16/21 12:29 08/16/21 14:36 Temperature 38.9 C H Temperature Source Oral Pulse Rate 105 H Pulse Rate [Right Finger] 94 H 85 Respiratory Rate 18 16 16 Respiratory Effort / Characteristics Non-Labored Respiratory Depth Normal Respiratory Pattern Regular Blood Pressure 154/83 H Blood Pressure [Right Arm] 144/81 H Blood Pressure Mean 106 Blood Pressure Mean [Right Arm] 102 Blood Pressure Position Sitting Pulse Oximetry 98 98 98 Oxygen Delivery Method Room Air Sepsis Recent Fever Within 48 Hours Yes Sepsis New/Unexplained Change in Mental Status Yes Sepsis Action Taken by Nursing Physician Notified 08/16/21 14:52 Temperature Temperature Source Pulse Rate 86 Pulse Rate [Right Finger] Respiratory Rate 16 Respiratory Effort / Characteristics Respiratory Depth Respiratory Pattern Blood Pressure 130/66 Blood Pressure [Right Arm] Blood Pressure Mean Blood Pressure Mean [Right Arm] Blood Pressure Position Pulse Oximetry 98 Oxygen Delivery Method Sepsis Recent Fever Within 48 Hours Sepsis New/Unexplained Change in Mental Status Sepsis Action Taken by Nursing Laboratory Data Result diagrams: 08/16/21 10:42 08/16/21 09:50 Lab Results 08/16/21 08/16/21 08/16/21 Range/Units 09:30 09:50 09:50 WBC Cancelled RBC Cancelled Hgb Cancelled Hct Cancelled MCV Cancelled MCH Cancelled MCHC Cancelled RDW Std Deviation Cancelled RDW Coeff of Duong Cancelled Plt Count Cancelled MPV Cancelled Immature Gran % (Auto) Cancelled Neut % (Auto) Cancelled Lymph % (Auto) Cancelled [place] % (Auto) Cancelled Eos % (Auto) Cancelled Baso % (Auto) Cancelled Neut # (Auto) Cancelled Lymph # (Auto) Cancelled [place] # (Auto) Cancelled Eos # (Auto) Cancelled Baso # (Auto) Cancelled Immature Gran # (Auto) Cancelled Absolute Nucleated RBC Cancelled Nucleated RBC % (auto) Cancelled Neutrophils % (Manual) Cancelled Band Neutrophils % Cancelled Lymphocytes % (Manual) Cancelled Prolymphocyte % Cancelled Reactive Lymphs % (Man) Cancelled Monocytes % (Manual) Cancelled Eosinophils % (Manual) Cancelled Basophils % (Manual) Cancelled Metamyelocytes % (Man) Cancelled Myelocytes % (Man) Cancelled Promyelocytes % (Man) Cancelled Blast Cells % (Manual) Cancelled Plasma Cell % (Manual) Cancelled Other Cells % Cancelled Nucleated RBC % Cancelled Neutrophils # (Manual) Cancelled Band Neutrophils # Cancelled Total Absolute Neuts Cancelled Lymphocytes # (Manual) Cancelled Prolymphocyte # Cancelled Reactive Lymphs # Cancelled Total Abs Lymphocytes Cancelled Monocytes # (Manual) Cancelled Eosinophils # (Manual) Cancelled Basophils # (Manual) Cancelled Metamyelocytes # (Man) Cancelled Myelocytes # (Manual) Cancelled Promyelocytes # (Man) Cancelled Blast Cells # (Man) Cancelled Plasma Cell # (Manual) Cancelled Other Cells # Cancelled Nucleated RBCs # (Man) Cancelled Hypersegmented Neuts Cancelled Hyposegmented Neuts Cancelled Hypogranular Neuts Cancelled Large Granular Lymphs Cancelled # Lrg Granular Lymphs Cancelled Hairy Cells Cancelled Smudge Cells Cancelled Toxic Granulation Cancelled Toxic Vacuolation Cancelled Dohle Bodies Cancelled Bunny Rods Cancelled Platelet Estimate Cancelled Hypogranular Platelets Cancelled Clumped Platelets Cancelled Giant Platelets Cancelled Platelet Satelliting Cancelled RBC Morphology Cancelled Polychromasia Cancelled Hypochromasia Cancelled Poikilocytosis Cancelled Basophilic Stippling Cancelled Anisocytosis Cancelled Microcytosis Cancelled Macrocytosis Cancelled Spherocytes Cancelled Pappenheimer Bodies Cancelled Sickle Cells Cancelled Target Cells Cancelled Tear Drop Cells Cancelled Ovalocytes Cancelled Stomatocytes Cancelled Valentino-Fyffe Bodies Cancelled Echinocytes Cancelled Acanthocytes (Spur) Cancelled Rouleaux Cancelled RBC Agglutinates Cancelled Schistocytes Cancelled RBC Morph Comment Cancelled Sezary Cell Cancelled Sodium 139 (136-145) mmol/L Potassium 3.8 (3.5-5.1) mmol/L Chloride 106 (98-107) mmol/L Carbon Dioxide 19 L (21-32) mmol/L Anion Gap 14 H (3-11) BUN 22 (6-23) mg/dl Creatinine 0.97 (0.6-1.2) mg/dl Est Cr Clr Drug Dosing 45.9 ml/min Est GFR ( Amer) 69.6 ml/min Est GFR (Non-Af Amer) 60.0 ml/min BUN/Creatinine Ratio 22.7 H (10-20) Glucose 192 H (70-99(Fasting)) mg/dl Estimat Average Glucose mg/dl Hemoglobin A1c (4.5-5.6) % Lactate (0.4-2.0) mmol/L Calcium 9.4 (8.5-10.1) mg/dl Magnesium 2.0 (1.7-2.4) mg/dl Total Bilirubin 0.7 (0.2-1.0) mg/dl AST 28 (13-39) U/L ALT 13 (7-52) U/L Alkaline Phosphatase 59 (34-104) U/L Troponin I < 0.03 (0-0.04) ng/ml C-Reactive Protein (0-0.5) mg/dl Total Protein 7.4 (6.0-8.3) gm/dl Albumin 4.2 (3.4-5.0) gm/dl Globulin 3.2 (2.5-4.0) gm/dl Albumin/Globulin Ratio 1.3 (0.9-2) Lipase 13 (11-82) U/L Procalcitonin (0-0.5) ng/ml TSH (0.300-4.500) uIu/ml SARS-CoV-2, RNA, NAAT POSITIVE A* (NEGATIVE) 08/16/21 08/16/21 08/16/21 Range/Units 09:50 09:50 10:42 WBC RBC Hgb Hct MCV MCH MCHC RDW Std Deviation RDW Coeff of Duong Plt Count MPV Immature Gran % (Auto) Neut % (Auto) Lymph % (Auto) [place] % (Auto) Eos % (Auto) Baso % (Auto) Neut # (Auto) Lymph # (Auto) [place] # (Auto) Eos # (Auto) Baso # (Auto) Immature Gran # (Auto) Absolute Nucleated RBC Nucleated RBC % (auto) Neutrophils % (Manual) Band Neutrophils % Lymphocytes % (Manual) Prolymphocyte % Reactive Lymphs % (Man) Monocytes % (Manual) Eosinophils % (Manual) Basophils % (Manual) Metamyelocytes % (Man) Myelocytes % (Man) Promyelocytes % (Man) Blast Cells % (Manual) Plasma Cell % (Manual) Other Cells % Nucleated RBC % Neutrophils # (Manual) Band Neutrophils # Total Absolute Neuts Lymphocytes # (Manual) Prolymphocyte # Reactive Lymphs # Total Abs Lymphocytes Monocytes # (Manual) Eosinophils # (Manual) Basophils # (Manual) Metamyelocytes # (Man) Myelocytes # (Manual) Promyelocytes # (Man) Blast Cells # (Man) Plasma Cell # (Manual) Other Cells # Nucleated RBCs # (Man) Hypersegmented Neuts Hyposegmented Neuts Hypogranular Neuts Large Granular Lymphs # Lrg Granular Lymphs Hairy Cells Smudge Cells Toxic Granulation Toxic Vacuolation Dohle Bodies Bunny Rods Platelet Estimate Hypogranular Platelets Clumped Platelets Giant Platelets Platelet Satelliting RBC Morphology Polychromasia Hypochromasia Poikilocytosis Basophilic Stippling Anisocytosis Microcytosis Macrocytosis Spherocytes Pappenheimer Bodies Sickle Cells Target Cells Tear Drop Cells Ovalocytes Stomatocytes Valentino-Fyffe Bodies Echinocytes Acanthocytes (Spur) Rouleaux RBC Agglutinates Schistocytes RBC Morph Comment Sezary Cell Sodium (136-145) mmol/L Potassium (3.5-5.1) mmol/L Chloride (98-107) mmol/L Carbon Dioxide (21-32) mmol/L Anion Gap (3-11) BUN (6-23) mg/dl Creatinine (0.6-1.2) mg/dl Est Cr Clr Drug Dosing ml/min Est GFR ( Amer) ml/min Est GFR (Non-Af Amer) ml/min BUN/Creatinine Ratio (10-20) Glucose (70-99(Fasting)) mg/dl Estimat Average Glucose mg/dl Hemoglobin A1c (4.5-5.6) % Lactate 1.3 (0.4-2.0) mmol/L Calcium (8.5-10.1) mg/dl Magnesium (1.7-2.4) mg/dl Total Bilirubin (0.2-1.0) mg/dl AST (13-39) U/L ALT (7-52) U/L Alkaline Phosphatase (34-104) U/L Troponin I (0-0.04) ng/ml C-Reactive Protein (0-0.5) mg/dl Total Protein (6.0-8.3) gm/dl Albumin (3.4-5.0) gm/dl Globulin (2.5-4.0) gm/dl Albumin/Globulin Ratio (0.9-2) Lipase (11-82) U/L Procalcitonin 0.19 (0-0.5) ng/ml TSH 0.663 (0.300-4.500) uIu/ml SARS-CoV-2, RNA, NAAT (NEGATIVE) 08/16/21 08/16/21 08/16/21 Range/Units 10:42 10:42 10:42 WBC 4.44 L RBC 4.25 Hgb 12.8 Hct 37.1 MCV 87.3 MCH 30.1 MCHC 34.5 RDW Std Deviation 40.3 RDW Coeff of Duong 12.6 Plt Count 74 L MPV 11.4 H Immature Gran % (Auto) 0.5 Neut % (Auto) 83.6 Lymph % (Auto) 5.6 [place] % (Auto) 10.1 Eos % (Auto) 0.0 Baso % (Auto) 0.2 Neut # (Auto) 3.71 Lymph # (Auto) 0.25 L [place] # (Auto) 0.45 Eos # (Auto) 0.00 Baso # (Auto) 0.01 Immature Gran # (Auto) 0.02 Absolute Nucleated RBC Nucleated RBC % (auto) Neutrophils % (Manual) Band Neutrophils % Lymphocytes % (Manual) Prolymphocyte % Reactive Lymphs % (Man) Monocytes % (Manual) Eosinophils % (Manual) Basophils % (Manual) Metamyelocytes % (Man) Myelocytes % (Man) Promyelocytes % (Man) Blast Cells % (Manual) Plasma Cell % (Manual) Other Cells % Nucleated RBC % Neutrophils # (Manual) Band Neutrophils # Total Absolute Neuts Lymphocytes # (Manual) Prolymphocyte # Reactive Lymphs # Total Abs Lymphocytes Monocytes # (Manual) Eosinophils # (Manual) Basophils # (Manual) Metamyelocytes # (Man) Myelocytes # (Manual) Promyelocytes # (Man) Blast Cells # (Man) Plasma Cell # (Manual) Other Cells # Nucleated RBCs # (Man) Hypersegmented Neuts Hyposegmented Neuts Hypogranular Neuts Large Granular Lymphs # Lrg Granular Lymphs Hairy Cells Smudge Cells Toxic Granulation Toxic Vacuolation Dohle Bodies Bunny Rods Platelet Estimate Hypogranular Platelets Clumped Platelets Giant Platelets Platelet Satelliting RBC Morphology Polychromasia Hypochromasia Poikilocytosis Basophilic Stippling Anisocytosis Microcytosis Macrocytosis Spherocytes Pappenheimer Bodies Sickle Cells Target Cells Tear Drop Cells Ovalocytes Stomatocytes Valentino-Fyffe Bodies Echinocytes Acanthocytes (Spur) Rouleaux RBC Agglutinates Schistocytes RBC Morph Comment Sezary Cell Sodium (136-145) mmol/L Potassium (3.5-5.1) mmol/L Chloride (98-107) mmol/L Carbon Dioxide (21-32) mmol/L Anion Gap (3-11) BUN (6-23) mg/dl Creatinine (0.6-1.2) mg/dl Est Cr Clr Drug Dosing ml/min Est GFR ( Amer) ml/min Est GFR (Non-Af Amer) ml/min BUN/Creatinine Ratio (10-20) Glucose (70-99(Fasting)) mg/dl Estimat Average Glucose 126 mg/dl Hemoglobin A1c 6.0 H (4.5-5.6) % Lactate (0.4-2.0) mmol/L Calcium (8.5-10.1) mg/dl Magnesium (1.7-2.4) mg/dl Total Bilirubin (0.2-1.0) mg/dl AST (13-39) U/L ALT (7-52) U/L Alkaline Phosphatase (34-104) U/L Troponin I (0-0.04) ng/ml C-Reactive Protein 9.15 H (0-0.5) mg/dl Total Protein (6.0-8.3) gm/dl Albumin (3.4-5.0) gm/dl Globulin (2.5-4.0) gm/dl Albumin/Globulin Ratio (0.9-2) Lipase (11-82) U/L Procalcitonin (0-0.5) ng/ml TSH (0.300-4.500) uIu/ml SARS-CoV-2, RNA, NAAT (NEGATIVE) Administered Medications Dexamethasone 6 mg/ Syringe 1.5 mls @ 1 mls/min IV DAILY LORENZA Stop: 09/15/21 13:29 Last Admin: 08/16/21 15:04 Dose: 1 mls/min Documented by: [id number] Discontinued Medications Acetaminophen (Acetaminophen 500 Mg Tab) 1,000 mg PO NOW STA Stop: 08/16/21 09:54 Last Admin: 08/16/21 10:23 Dose: 1,000 mg Documented by: [id number] Sodium Chloride (Nss) 500 mls @ 999 mls/hr IV .Q31M LORENZA Stop: 08/16/21 10:00 Last Infusion: 08/16/21 11:10 Dose: 0 mls/hr Documented by: [id number] Admin: 08/16/21 10:28 Dose: 999 mls/hr Documented by: [id number] Sodium Chloride (Nss 1000ml) 1,000 mls @ 999 mls/hr IV .Q1H1M ONE Stop: 08/16/21 11:22 Last Infusion: 08/16/21 11:10 Dose: 0 mls/hr Documented by: [id number] Admin: 08/16/21 10:28 Dose: 999 mls/hr Documented by: [id number] Imaging Data Radiologist's Impression: Chest X-Ray 08/16/21 09:29 XR chest 1V portable CLINICAL HISTORY: weakness, fever, coughing TECHNIQUE: Single frontal radiograph of the chest was obtained. Comparison: Comparison is made to chest one view 06/09/2021 FINDINGS: No lines and tubes are seen. Cardiomegaly is noted. Airspace opacity is in the left perihilar region. No evidence of pleural effusion or pneumothorax. IMPRESSION: Left perihilar airspace opacity likely represents pneumonia and/or atelectasis/aspiration. ACT 112: Negative or not required by law. Electronically signed by: Tyrese Cruz M.D. 08/16/2021 10:14 AM Discharge Plan Visit Data Chief Complaint: Illness Stated Complaint: WEAKNESS, CONFUSION, COUGH ED Provider: Ronal Hamm Discharge Problem: COVID-19, Weakness, Confusion Patient Disposition: Being Evaluated by Hospitalist Discharge Instructions Interventions: ED Discharge Assessment Last Done: 08/16/21 14:52 Forms Stand Alone Forms: My [facility] Prescriptions Prescriptions: No Action loratadine [Claritin] 10 mg Tablet 10 mg PO DAILY PRN (Reason: Allergy Symptoms) RF: 0 Anacin 400-32 mg Tablet 1 tab PO Q6H PRN (Reason: Pain) RF: 0 quetiapine 25 mg Tablet 25 mg PO DAILYBL Qty: 14 RF: 0 amlodipine [Norvasc] 5 mg Tablet 7.5 mg PO QAM Qty: 14 RF: 0 Certavite-Antioxidant 18-400 mg-mcg Tablet 1 tab PO QAM Qty: 1 RF: 0 quetiapine 25 mg tablet 100 mg PO HS RF: 0 Referrals Referrals: PCP,NO [Physician] -
[2021-08-16] MEDS ORDERED: ACETAMINOPHEN 500 MG TAB PO STA (09:53)
--- NOTE | 2021-08-16 10:16 | XRay Report ---
XR chest 1V portable CLINICAL HISTORY: weakness, fever, coughing TECHNIQUE: Single frontal radiograph of the chest was obtained. Comparison: Comparison is made to chest one view 06/09/2021 FINDINGS: No lines and tubes are seen. Cardiomegaly is noted. Airspace opacity is in the left perihilar region. No evidence of pleural effusion or pneumothorax. IMPRESSION: Left perihilar airspace opacity likely represents pneumonia and/or atelectasis/aspiration. ACT 112: Negative or not required by law. Electronically signed by: Tyrese Cruz M.D. 08/16/2021 10:14 AM
[2021-08-16] MEDS ORDERED: SODIUM CHLORIDE 0.9% 1000ML 1,000 ML IV ONE (10:22)
[2021-08-16 10:44] LABS: Troponin I < 0.03 ng/ml (0-0.04)
[2021-08-16 10:51] LABS: Alanine Aminotransferase 13 U/L (7-52); Albumin Globulin Ratio 1.3 (0.9-2); Albumin Level 4.2 gm/dl (3.4-5.0); Alkaline Phosphatase 59 U/L (34-104); Anion Gap 14 (3-11); Aspartate Aminotransferase 28 U/L (13-39); BUN Creatinine Ratio 22.7 (10-20); Bilirubin,Total 0.7 mg/dl (0.2-1.0); Blood Urea Nitrogen 22 mg/dl (6-23); Calcium 9.4 mg/dl (8.5-10.1); Carbon Dioxide 19 mmol/L (21-32); Chloride 106 mmol/L (98-107); Creatinine Clr Calc Pharmacy 45.9 ml/min; Est GFR (African American) 69.6 ml/min; Globulin 3.2 gm/dl (2.5-4.0); Glucose 192 mg/dl (70-99(Fasting)); Lipase 13 U/L (11-82); Potassium 3.8 mmol/L (3.5-5.1); Sodium 139 mmol/L (136-145); Total Protein 7.4 gm/dl (6.0-8.3)
[2021-08-16 11:13] LABS: Hematocrit (blood only) 37.1 % (37-47); Hemoglobin 12.8 g/dL (12.0-16.0); Mean Corpuscular Hemoglobin 30.1 pg (25-34); Mean Corpuscular Hgb Conc 34.5 g/dL (32-36); Mean Corpuscular Volume 87.3 fL (80-100); RDW Coefficient of Variation 12.6 % (11.5-14.5); RDW Standard Deviation 40.3 fL (36.4-46.3); Red Blood Count 4.25 M/uL (4.2-5.4); White Blood Count 4.44 K/uL (4.8-10.8)
[2021-08-16 11:14] LABS: Mean Platelet Volume 11.4 fL (7.4-10.4); Platelet Count 74 K/uL (130-400)
[2021-08-16 11:32] LABS: Basophils # (auto) 0.01 K/uL (0-0.2); Basophils % (auto) 0.2 %; Immature Granulocytes # (auto) 0.02 K/uL (0.00-0.02); Immature Granulocytes % (auto) 0.5 %; Lymphocytes # (auto) 0.25 K/uL (1.2-3.4); Lymphocytes % (auto) 5.6 %; Monocytes # (auto) 0.45 K/uL (0.11-0.59); Monocytes % (auto) 10.1 %; Neutrophils # (auto) 3.71 K/uL (1.4-6.5); Neutrophils % (auto) 83.6 %
--- NOTE | 2021-08-16 13:24 | Electrocardiogram Report ---
Test Reason : Blood Pressure : / mmHG Vent. Rate : 104 BPM Atrial Rate : 104 BPM P-R Int : 152 ms QRS Dur : 116 ms QT Int : 372 ms P-R-T Axes : 062 -58 016 degrees QTc Int : 489 ms Poor data quality, interpretation may be adversely affected Sinus tachycardia with Premature supraventricular complexes Incomplete right bundle branch block Left anterior fascicular block Abnormal ECG Confirmed by Gucci Pérez ([id number]) on 08/16/2021 1:23:53 PM Referred By: REFERRED SELF Confirmed By:Adam Pérez
--- NOTE | 2021-08-16 13:40 | History & Physical Report ---
Date of Service August 16, 2021 Assessment & Plan (1) Pneumonia due to COVID-19 virus: (2) Loose bowel movement: (3) Weakness: (4) Dementia: (5) Hypertension: Plan: COVID pneumonia: - symptoms onset on: 08/13/21 - CXR: Left perihilar airspace opacity likely represents pneumonia and/or atelectasis/aspiration. -Procal: neg -LFTs and CrCl are normal -pt currently not requiring oxygen therefore will do dexamethasone only ---- however pts CRP is >7.5: if CRP continues to increase or pt requires oxygen then will add remdesivir -encourage frequent change of position (including proning) -daily CMP and CRP -DVT ppx ordered: levonox Loose BM with possible dark stool: -will get FOBT -start pt on PPI PO daily -C.diff sent - trend CBC Generalized weakness: -likely due to COVID pneumonia -at baseline pt walks with walker -will get PT/OT eval HTN: -c/w home meds Dementia: -at baseline AAOx0 to AAOx1 -will continue home quetiapine dose Diet: heart health Code Status: Full code Emergency Contact: Kaden (son) [phone] History of Present Illness Chief Complaint: generalized weakness and fatigue Primary Care Provider: [facility] Pt is a 66 y/o F with hx of Dementia (likely Lewy body dementia), HTN, LE edema brought in by her son. Per son, pt has been having dry cough for 3 months, but 2-3 days ago she started to have fatigue, decreased appetite and generalized weakness. Denied any slur speech, fall or syncope. Today morning per son, pt had a large loose BM and it was black in colour but denied any blood, abd pain, N/V. -Per son, pts dementia has been getting worse. She continues to have hallucination. -At baseline she is AAOx0 to AAOx1, walks with walker. They are currently living in [address] -pt got her first COVID vaccine about 1 month ago Allergies Allergy/AdvReac Type Severity Reaction Status Date / Time No Known Allergies Allergy Mild Unverified 08/16/21 12:10 Home Medications Medication Instructions Recorded Confirmed Type aspirin-caffeine 400 mg-32 mg 1 tab PO Q6H PRN 11/18/21 01/25/22 History tablet (Anacin) loratadine 10 mg tablet (Claritin) 10 mg PO DAILY PRN 06/09/21 08/16/21 History amlodipine 5 mg tablet (Norvasc) 7.5 mg PO QAM #14 tab 07/01/21 08/16/21 Rx multivitamin-ferrous 1 tab PO QAM #1 tab 07/01/21 08/16/21 Rx fumarate-folic acid 18 mg-400 mcg tablet (Certavite-Antioxidant) quetiapine 25 mg tablet 25 mg PO DAILYBL #14 tab 07/01/21 08/16/21 Rx quetiapine 25 mg tablet 100 mg PO HS 08/16/21 08/16/21 History Past Med/Surg History Medical History (Updated 08/16/21 @ 13:38 by French Red MD) Dementia Hallucination, visual Social History Smoking Status: Never smoker Hx Alcohol Use: No Hx Substance Use: No Preferred Language: Salvadorean Communication Ability: Effective 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 NAD, well developed, well nourished, average body habitus HEENT:. Normocephalic and atraumatic, Normal Conjunctiva, EOMI, Sclera is non- icteric Lungs:.overall good air entry b/l, b/l lower lobe rales, no wheezing Heart:. Normal S1, S2, no murmur Abdominal:. ND, Soft, NT MSK/Neuro:.CN II-XII intact, PERRLA, EOMI, moved her extremities equally, No legs edema Psych:AAOx0, pt takes time to responds to questions & follows command Results & Data Results & Data ([place]) Vital Signs (Past 12 Hours) Vital Signs Temp Pulse Pulse Resp BP BP Pulse Ox 08/16/21 12:29 94 H 16 144/81 H 98 08/16/21 09:29 38.9 C H 105 H 18 154/83 H 98 Laboratory Results Short CBC 08/16/21 08/16/21 Range/Units 09:50 10:42 WBC Cancelled 4.44 L Hgb Cancelled 12.8 Hct Cancelled 37.1 Plt Count Cancelled 74 L BMP 08/16/21 09:50 Sodium 139 Potassium 3.8 Chloride 106 Carbon Dioxide 19 L BUN 22 Creatinine 0.97 Glucose 192 H Calcium 9.4 Cardiac Enzymes 08/16/21 Range/Units 09:50 Troponin I < 0.03 (0-0.04) ng/ml Liver Function 08/16/21 Range/Units 09:50 Total Bilirubin 0.7 (0.2-1.0) mg/dl AST 28 (13-39) U/L ALT 13 (7-52) U/L Alkaline Phosphatase 59 (34-104) U/L Albumin 4.2 (3.4-5.0) gm/dl Diagnostic Findings Chest X-Ray 08/16/21 09:29 XR chest 1V portable CLINICAL HISTORY: weakness, fever, coughing TECHNIQUE: Single frontal radiograph of the chest was obtained. Comparison: Comparison is made to chest one view 06/09/2021 FINDINGS: No lines and tubes are seen. Cardiomegaly is noted. Airspace opacity is in the left perihilar region. No evidence of pleural effusion or pneumothorax. IMPRESSION: Left perihilar airspace opacity likely represents pneumonia and/or atelectasis/aspiration. ACT 112: Negative or not required by law. Electronically signed by: Tyrese Cruz M.D. 08/16/2021 10:14 AM Code Status & VTE Plan VTE Prophylaxis Plan VTE Prophylaxis will be ordered: Yes (1) Hypertension Hypertension type: other secondary hypertension Qualified Code(s): I15.8 - Other secondary hypertension
[2021-08-16] MEDS: dexAMETHasone 6 MG in SYRINGE 0 ML IV SCH (15:04)
[2021-08-16 15:34] LABS: Estimated Average Glucose 126 mg/dl
[2021-08-16] MEDS ORDERED: GLUCOSE 10 TABS/TUBE PO PRN (17:55)
[2021-08-16] MEDS ORDERED: DEXTROSE 50% 50 ML SYRINGE IV PRN (17:55)
[2021-08-16] MEDS ORDERED: GLUCAGON FOR INJ 1 MG VIAL SQ PRN (17:55)
[2021-08-16] MEDS ORDERED: GLUCOSE 40% GEL 15 GM TUBE PO PRN (17:55)
[2021-08-16] MEDS ORDERED: CARBOHYDRATES FOR HYPOGLYCEMIA PO PRN (17:55)
[2021-08-16] MEDS: INSULIN ASPART PER UNIT SC SCH ×3 (20:09→20:14)
[2021-08-16] MEDS: ENOXAPARIN INJ 40 MG/0.4 ML SYR SQ SCH (20:11)
[2021-08-16] MEDS: QUEtiapine FUMARATE 100 MG TABLET PO SCH (20:15)
[2021-08-17 06:03] LABS: Hematocrit (blood only) 34.9 % (37-47); Hemoglobin 12.2 g/dL (12.0-16.0); RDW Coefficient of Variation 12.4 % (11.5-14.5); RDW Standard Deviation 39.4 fL (36.4-46.3); Red Blood Count 4.06 M/uL (4.2-5.4); White Blood Count 3.15 K/uL (4.8-10.8)
[2021-08-17 06:08] LABS: Mean Platelet Volume 11.6 fL (7.4-10.4); Platelet Count 72 K/uL (130-400)
[2021-08-17 06:12] LABS: Alanine Aminotransferase 13 U/L (7-52); Albumin Globulin Ratio 1.2 (0.9-2); Albumin Level 3.6 gm/dl (3.4-5.0); Alkaline Phosphatase 44 U/L (34-104); Anion Gap 10 (3-11); BUN Creatinine Ratio 31.6 (10-20); Bilirubin,Total 0.5 mg/dl (0.2-1.0); Blood Urea Nitrogen 24 mg/dl (6-23); C Reactive Protein 12.23 mg/dl (0-0.5); Calcium 8.8 mg/dl (8.5-10.1); Carbon Dioxide 19 mmol/L (21-32); Chloride 109 mmol/L (98-107); Creatinine Clr Calc Pharmacy 58.6 ml/min; Est GFR (African American) 93.4 ml/min; Est GFR (Non-African American) 80.6 ml/min; Globulin 2.9 gm/dl (2.5-4.0); Glucose 172 mg/dl (70-99(Fasting)); Sodium 138 mmol/L (136-145); Total Protein 6.5 gm/dl (6.0-8.3)
[2021-08-17 06:38] LABS: Immature Granulocytes # (auto) 0.02 K/uL (0.00-0.02); Immature Granulocytes % (auto) 0.6 %; Lymphocytes # (auto) 0.34 K/uL (1.2-3.4); Lymphocytes % (auto) 10.8 %; Monocytes # (auto) 0.21 K/uL (0.11-0.59); Monocytes % (auto) 6.7 %; Neutrophils # (auto) 2.58 K/uL (1.4-6.5); Neutrophils % (auto) 81.9 %; Toxic Vacuolation 1+
[2021-08-17] MEDS ORDERED: PANTOprazole 40 MG TAB ONE (07:50)
[2021-08-17 07:54] LABS: Potassium 3.2 mmol/L (3.5-5.1)
[2021-08-17] MEDS ORDERED: POTASSIUM CHLORIDE CRTAB 20 MEQ TABCR PO ONE (08:12)
[2021-08-17] MEDS: amLODIPine BESYLATE 5 MG TAB PO SCH (08:40)
[2021-08-17] MEDS: PANTOprazole 40 MG TAB PO SCH (08:41)
[2021-08-17] MEDS: dexAMETHasone 6 MG in SYRINGE 0 ML IV SCH (08:42)
[2021-08-17] MEDS: INSULIN ASPART PER UNIT SC SCH ×4 (09:38→21:16)
[2021-08-17] MEDS: QUEtiapine FUMARATE 25 MG TABLET PO SCH (09:40)
[2021-08-17] MEDS: ENOXAPARIN INJ 40 MG/0.4 ML SYR SQ SCH (18:10)
--- NOTE | 2021-08-17 18:35 | Hospitalist Progress Note ---
Date of Service August 17, 2021 Assessment & Plan (1) Pneumonia due to COVID-19 virus: (2) Loose bowel movement: (3) Weakness: (4) Dementia: (5) Hypertension: Plan: COVID pneumonia: symptoms onset on: 08/13/21 CXR: Left perihilar airspace opacity likely represents pneumonia and/or atelectasis/aspiration. Procalcitonin: negative CRP:7.5 Currently saturating 93% on Room Air Continue dexamethasone for now Supplemental oxygen as needed On Lovenox for DVT prophylaxis Encourage to prone Diarrhea Likely due to COVID Check stool studies if re occurs Generalized weakness: Secondary to COVID pneumonia Uses Walker for ambulation at baseline PT/OT HTN: Continue Amlodipine Dementia: Seems to be at baseline Continue home medications Reorient frequently Code Status Full code Admission and Anticipated Discharge Date Admission Date: August 16, 2021 Subjective Patient is seen and examined at bedside States having cough and minimal sore throat Denies any dyspnea, dizziness, nausea, abdominal pain Currently saturating well on room air Review of Systems Review of Systems: All systems reviewed & are unremarkable except as noted in Subjective Physical Exam Physical Exam: Physical Exam: Vitals signs as noted above General Appearance:Moderately built and nourished, no apparent distress Head: normocephalic, Atraumatic Eyes: normal inspection, EOMI Neck: supple, Trachea midline Respiratory/Chest: Decreased breath sounds, CTA, No accessory muscle use Cardiovascular: S1, S2, No murmur Abdomen/GI:Soft, Non tender, Bowel sounds present Extremities/Musculoskeletal:normal inspection, no edema Neurologic/Psych:AA, grossly no focal neurological deficits, +Dementia Skin: normal color, warm Results & Data Results & Data ([facility]) Vital Signs (Past 12 Hours) Vital Signs Pulse Resp BP Pulse Ox 08/17/21 17:51 92 H 22 135/88 93 08/17/21 14:01 156/107 H 08/17/21 12:54 103 H 20 156/82 H 93 Laboratory Results Short CBC 08/17/21 Range/Units 05:18 WBC 3.15 L (4.8-10.8) K/uL Hgb 12.2 (12.0-16.0) g/dL Hct 34.9 L (37-47) % Plt Count 72 L (130-400) K/uL BMP 08/17/21 08/17/21 05:18 07:07 Sodium 138 Potassium TNP 3.2 L Chloride 109 H Carbon Dioxide 19 L BUN 24 H Creatinine 0.76 Glucose 172 H Calcium 8.8 Liver Function 08/17/21 08/17/21 Range/Units 05:18 07:07 Total Bilirubin 0.5 (0.2-1.0) mg/dl AST TNP 27 ALT 13 (7-52) U/L Alkaline Phosphatase 44 (34-104) U/L Albumin 3.6 (3.4-5.0) gm/dl (1) Hypertension Hypertension type: other secondary hypertension Qualified Code(s): I15.8 - Other secondary hypertension
[2021-08-17] MEDS: QUEtiapine FUMARATE 100 MG TABLET PO SCH (21:05)
[2021-08-18 04:48] LABS: Hematocrit (blood only) 34.7 % (37-47); Hemoglobin 12.2 g/dL (12.0-16.0); Mean Corpuscular Hemoglobin 30.3 pg (25-34); Mean Corpuscular Hgb Conc 35.2 g/dL (32-36); Mean Corpuscular Volume 86.3 fL (80-100); RDW Coefficient of Variation 12.5 % (11.5-14.5); RDW Standard Deviation 40.2 fL (36.4-46.3); Red Blood Count 4.02 M/uL (4.2-5.4); White Blood Count 3.35 K/uL (4.8-10.8)
[2021-08-18 04:54] LABS: Platelet Count 78 K/uL (130-400)
[2021-08-18 05:24] LABS: BUN Creatinine Ratio 32.5 (10-20); Calcium 8.9 mg/dl (8.5-10.1); Creatinine Clr Calc Pharmacy 57.8 ml/min; Est GFR (Non-African American) 79.3 ml/min; Potassium 3.7 mmol/L (3.5-5.1)
[2021-08-18] MEDS: amLODIPine BESYLATE 5 MG TAB PO SCH (08:29)
[2021-08-18] MEDS: PANTOprazole 40 MG TAB PO SCH (08:29)
[2021-08-18] MEDS: dexAMETHasone 6 MG in SYRINGE 0 ML IV SCH (08:30)
[2021-08-18] MEDS: INSULIN ASPART PER UNIT SC SCH ×4 (09:06→21:19)
[2021-08-18] MEDS: QUEtiapine FUMARATE 25 MG TABLET PO SCH (11:10)
--- NOTE | 2021-08-18 18:01 | Hospitalist Progress Note ---
Date of Service August 18, 2021 Assessment & Plan (1) Pneumonia due to COVID-19 virus: (2) Loose bowel movement: (3) Weakness: (4) Dementia: (5) Hypertension: Plan: COVID pneumonia: symptoms onset on: 08/13/21 CXR: Left perihilar airspace opacity likely represents pneumonia and/or atelectasis/aspiration. Procalcitonin: negative CRP:7.5 Continue supplemental oxygen as needed Continue dexamethasone On Lovenox for DVT prophylaxis Encourage to prone Daily on 2 L supplemental oxygen Recheck CRP tomorrow Diarrhea Likely due to COVID Check stool studies if re occurs Generalized weakness: Secondary to COVID pneumonia Uses Walker for ambulation at baseline PT/OT HTN: Continue Amlodipine Dementia: Seems to be at baseline Continue home medications Reorient frequently Code Status Full code Admission and Anticipated Discharge Date Admission Date: August 16, 2021 Subjective Patient is seen and examined at bedside Confused today Febrile Poor appetite States feeling tired Currently on 2 L supplemental oxygen Poor historian secondary to dementia Denies any dyspnea, dizziness, nausea, abdominal pain Review of Systems Review of Systems: All systems reviewed & are unremarkable except as noted in Subjective Physical Exam Physical Exam: Physical Exam: Vitals signs as noted above General Appearance:Moderately built and nourished, no apparent distress Head: normocephalic, Atraumatic Eyes: normal inspection, EOMI Neck: supple, Trachea midline Respiratory/Chest: Decreased breath sounds, CTA, No accessory muscle use Cardiovascular: S1, S2, No murmur Abdomen/GI:Soft, Non tender, Bowel sounds present Extremities/Musculoskeletal:normal inspection, no edema Neurologic/Psych:AA, grossly no focal neurological deficits, +Dementia Skin: normal color, warm Results & Data Results & Data ([facility]) Vital Signs (Past 12 Hours) Vital Signs Temp Pulse Pulse Resp BP BP Pulse Ox 08/18/21 14:00 101 H 22 143/69 H 90 08/18/21 12:00 100 H 20 132/66 93 08/18/21 11:11 37.6 C H 103 H 20 126/73 92 08/18/21 11:10 100 H 22 126/73 90 08/18/21 10:01 108 H 13 87 L 08/18/21 10:00 103 H 18 89 L 08/18/21 08:26 102 H 14 141/85 H 93 08/18/21 08:25 102 H 19 141/85 H 93 08/18/21 08:00 99 H 33 H 91 08/18/21 07:19 99 H 20 93 08/18/21 06:01 97 H 24 127/72 93 08/18/21 06:00 97 H 15 93 Laboratory Results Short CBC 08/18/21 Range/Units 04:28 WBC 3.35 L (4.8-10.8) K/uL Hgb 12.2 (12.0-16.0) g/dL Hct 34.7 L (37-47) % Plt Count 78 L (130-400) K/uL BMP 08/18/21 04:28 Sodium 141 Potassium 3.7 Chloride 112 H Carbon Dioxide 21 BUN 25 H Creatinine 0.77 Glucose 185 H Calcium 8.9 (1) Hypertension Hypertension type: other secondary hypertension Qualified Code(s): I15.8 - Other secondary hypertension
[2021-08-18] MEDS: QUEtiapine FUMARATE 100 MG TABLET PO SCH (21:19)
[2021-08-18] MEDS: ENOXAPARIN INJ 40 MG/0.4 ML SYR SQ SCH (21:19)
[2021-08-19 07:05] LABS: Hematocrit (blood only) 39.9 % (37-47); Hemoglobin 13.8 g/dL (12.0-16.0); Mean Corpuscular Hemoglobin 30.5 pg (25-34); Mean Corpuscular Hgb Conc 34.6 g/dL (32-36); Mean Corpuscular Volume 88.1 fL (80-100); RDW Coefficient of Variation 12.7 % (11.5-14.5); RDW Standard Deviation 40.9 fL (36.4-46.3); Red Blood Count 4.53 M/uL (4.2-5.4); White Blood Count 3.32 K/uL (4.8-10.8)
[2021-08-19 07:08] LABS: Mean Platelet Volume 11.4 fL (7.4-10.4); Platelet Count 73 K/uL (130-400)
[2021-08-19 07:26] LABS: BUN Creatinine Ratio 28.6 (10-20); C Reactive Protein 13.82 mg/dl (0-0.5); Calcium 8.9 mg/dl (8.5-10.1); Creatinine Clr Calc Pharmacy 45.4 ml/min; Est GFR (African American) 68.7 ml/min; Est GFR (Non-African American) 59.3 ml/min; Potassium 3.5 mmol/L (3.5-5.1)
[2021-08-19] MEDS: dexAMETHasone 6 MG in SYRINGE 0 ML IV SCH (10:40)
[2021-08-19] MEDS: INSULIN ASPART PER UNIT SC SCH ×4 (10:47→21:59)
[2021-08-19] MEDS: amLODIPine BESYLATE 5 MG TAB PO SCH (12:58)
[2021-08-19] MEDS: QUEtiapine FUMARATE 25 MG TABLET PO SCH (12:58)
[2021-08-19] MEDS: PANTOprazole 40 MG TAB PO SCH (12:58)
--- NOTE | 2021-08-19 17:33 | Hospitalist Progress Note ---
Date of Service August 19, 2021 Assessment & Plan (1) Pneumonia due to COVID-19 virus: (2) Loose bowel movement: (3) Weakness: (4) Dementia: (5) Hypertension: Plan: COVID pneumonia: symptoms onset on: 08/13/21 CXR: Left perihilar airspace opacity likely represents pneumonia and/or atelectasis/aspiration. Procalcitonin: negative CRP:7.5>13.82 Continue supplemental oxygen as needed Continue dexamethasone On Lovenox for DVT prophylaxis Encourage to prone Currently on 2 L supplemental oxygen Continue current management Diarrhea Likely due to COVID Check stool studies if re occurs Dysphagia Speech therapy to evaluate Generalized weakness: Secondary to COVID pneumonia Uses Walker for ambulation at baseline PT/OT HTN: Continue Amlodipine Dementia: Seems to be at baseline Continue home medications Reorient frequently Code Status Full code Admission and Anticipated Discharge Date Admission Date: August 16, 2021 Subjective Patient is seen and examined at bedside Poor historian due to dementia Currently on 2 L supplemental oxygen Had dysphagia noticed by RN today Remains febrile Denies any dyspnea, dizziness, nausea, abdominal pain Review of Systems Review of Systems: All systems reviewed & are unremarkable except as noted in Subjective Physical Exam Physical Exam: Physical Exam: Vitals signs as noted above General Appearance:Moderately built and nourished, no apparent distress Head: normocephalic, Atraumatic Eyes: normal inspection, EOMI Neck: supple, Trachea midline Respiratory/Chest: Decreased breath sounds, CTA, No accessory muscle use Cardiovascular: S1, S2, No murmur Abdomen/GI:Soft, Non tender, Bowel sounds present Extremities/Musculoskeletal:normal inspection, no edema Neurologic/Psych:AA, grossly no focal neurological deficits, +Dementia Skin: normal color, warm Results & Data Results & Data ([facility]) Vital Signs (Past 12 Hours) Vital Signs Temp Pulse Resp BP BP Pulse Ox 08/19/21 15:38 37.9 C H 69 20 155/63 H 98 08/19/21 08:13 36.9 C 103 H 18 170/69 H 92 Laboratory Results Short CBC 08/19/21 Range/Units 06:33 WBC 3.32 L (4.8-10.8) K/uL Hgb 13.8 (12.0-16.0) g/dL Hct 39.9 (37-47) % Plt Count 73 L (130-400) K/uL BMP 08/19/21 06:33 Sodium 143 Potassium 3.5 Chloride 110 H Carbon Dioxide 22 BUN 28 H Creatinine 0.98 Glucose 201 H Calcium 8.9 (1) Hypertension Hypertension type: other secondary hypertension Qualified Code(s): I15.8 - Other secondary hypertension
[2021-08-19] MEDS: ENOXAPARIN INJ 40 MG/0.4 ML SYR SQ SCH (18:12)
[2021-08-19] MEDS: QUEtiapine FUMARATE 100 MG TABLET PO SCH (21:49)
[2021-08-20 06:46] LABS: Hemoglobin 12.8 g/dL (12.0-16.0); Mean Corpuscular Hemoglobin 29.6 pg (25-34); Mean Corpuscular Hgb Conc 33.7 g/dL (32-36); Mean Corpuscular Volume 87.8 fL (80-100); RDW Coefficient of Variation 12.6 % (11.5-14.5); Red Blood Count 4.33 M/uL (4.2-5.4); White Blood Count 3.64 K/uL (4.8-10.8)
[2021-08-20 06:48] LABS: Mean Platelet Volume 11.5 fL (7.4-10.4); Platelet Count 65 K/uL (130-400)
[2021-08-20 07:12] LABS: BUN Creatinine Ratio 35.4 (10-20); Calcium 8.7 mg/dl (8.5-10.1); Est GFR (African American) 67.9 ml/min; Est GFR (Non-African American) 58.6 ml/min; Potassium 3.3 mmol/L (3.5-5.1)
[2021-08-20] MEDS: INSULIN ASPART PER UNIT SC SCH ×4 (09:54→21:17)
[2021-08-20] MEDS: amLODIPine BESYLATE 5 MG TAB PO SCH (10:00)
[2021-08-20] MEDS: PANTOprazole 40 MG TAB PO SCH (10:00)
[2021-08-20] MEDS: dexAMETHasone 6 MG in SYRINGE 0 ML IV SCH (10:01)
[2021-08-20] MEDS: QUEtiapine FUMARATE 25 MG TABLET PO SCH (10:01)
[2021-08-20] MEDS: POTASSIUM CHLORIDE CRTAB 20 MEQ TABCR PO SCH (10:01)
[2021-08-20] MEDS: ACETAMINOPHEN 325 MG TAB PO PRN ×2 (13:03→20:44)
--- NOTE | 2021-08-20 14:54 | Hospitalist Progress Note ---
Date of Service August 20, 2021 Assessment & Plan (1) Pneumonia due to COVID-19 virus: (2) Loose bowel movement: (3) Weakness: (4) Dementia: (5) Hypertension: Plan: COVID pneumonia: symptoms onset on: 08/13/21 CXR: Left perihilar airspace opacity likely represents pneumonia and/or atelectasis/aspiration. Procalcitonin: negative CRP:7.5>13.82 Continue supplemental oxygen as needed Continue dexamethasone On Lovenox for DVT prophylaxis Encourage to prone Currently on 3 L supplemental oxygen Incentive Spirometry Diarrhea Likely due to COVID Check stool studies if re occurs Dysphagia Appreciate Speech therapy recommendations Thrombocytopenia No acute bleeding issues Monitor Generalized weakness: Secondary to COVID pneumonia Uses Walker for ambulation at baseline PT/OT HTN: BP slightly elevated Increase Amlodipine 10mg daily Dementia: Seems to be at baseline Continue home medications Reorient frequently Code Status Full code Admission and Anticipated Discharge Date Admission Date: August 16, 2021 Subjective Patient is seen and examined at bedside Poor historian due to dementia Lethargic today Reports headache Poor appetite Currently on 3 L supplemental oxygen Denies any chest pain, dyspnea, dizziness, nausea, abdominal pain Review of Systems Review of Systems: All systems reviewed & are unremarkable except as noted in Subjective Physical Exam Physical Exam: Physical Exam: Vitals signs as noted above General Appearance:Moderately built and nourished, no apparent distress Head: normocephalic, Atraumatic Eyes: normal inspection, EOMI Neck: supple, Trachea midline Respiratory/Chest: Decreased breath sounds, CTA, No accessory muscle use Cardiovascular: S1, S2, No murmur Abdomen/GI:Soft, Non tender, Bowel sounds present Extremities/Musculoskeletal:normal inspection, no edema Neurologic/Psych:AA, grossly no focal neurological deficits, +Dementia Skin: normal color, warm Results & Data Results & Data ([facility]) Vital Signs (Past 12 Hours) Vital Signs Temp Pulse Resp BP Pulse Ox 08/20/21 13:13 90 08/20/21 06:47 37.4 C 103 H 20 159/90 H 87 L Laboratory Results Short CBC 08/20/21 Range/Units 05:35 WBC 3.64 L (4.8-10.8) K/uL Hgb 12.8 (12.0-16.0) g/dL Hct 38.0 (37-47) % Plt Count 65 L (130-400) K/uL [facility] 08/20/21 05:35 Sodium 144 Potassium 3.3 L Chloride 113 H Carbon Dioxide 21 BUN 35 H Creatinine 0.99 Glucose 218 H Calcium 8.7 (1) Hypertension Hypertension type: other secondary hypertension Qualified Code(s): I15.8 - Other secondary hypertension
[2021-08-20] MEDS: ENOXAPARIN INJ 40 MG/0.4 ML SYR SQ SCH (17:50)
[2021-08-20] MEDS: QUEtiapine FUMARATE 100 MG TABLET PO SCH (20:45)
[2021-08-21] MEDS: ACETAMINOPHEN 325 MG TAB PO PRN ×2 (06:41→17:53)
[2021-08-21 07:02] LABS: BUN Creatinine Ratio 43.1 (10-20); C Reactive Protein 18.34 mg/dl (0-0.5); Calcium 8.7 mg/dl (8.5-10.1); Creatinine Clr Calc Pharmacy 34.3 ml/min; Est GFR (African American) 48.8 ml/min; Est GFR (Non-African American) 42.1 ml/min; Magnesium 2.3 mg/dl (1.7-2.4); Potassium 3.6 mmol/L (3.5-5.1)
[2021-08-21] MEDS: amLODIPine BESYLATE 5 MG TAB PO SCH (09:34)
[2021-08-21] MEDS: POTASSIUM CHLORIDE CRTAB 20 MEQ TABCR PO SCH (09:35)
[2021-08-21] MEDS: PANTOprazole 40 MG TAB PO SCH (09:36)
[2021-08-21] MEDS: dexAMETHasone 6 MG in SYRINGE 0 ML IV SCH (09:36)
[2021-08-21] MEDS: INSULIN ASPART PER UNIT SC SCH ×4 (09:49→20:18)
[2021-08-21] MEDS: QUEtiapine FUMARATE 25 MG TABLET PO SCH (09:50)
[2021-08-21] MEDS ORDERED: PHARMACY GLYCEMIC MGMT CONSULT PRN (09:57)
[2021-08-21] MEDS ORDERED: SODIUM CHLOR 0.45% + 20MEQ KCL 20 MEQ/1,000 ML BAG IV SCH (10:00)
--- NOTE | 2021-08-21 10:14 | Pharmacy Report ---
Pharmacy Glycemic Short Note 2 - Date of Service August 21, 2021 - Glycemic Short BSG Results (Last 24 hours): 08/20/21 08/20/21 08/20/21 11:45 16:49 20:07 Glucose POC Glucose 214 H 282 H 327 H* 08/20/21 08/21/21 08/21/21 20:09 06:08 07:42 Glucose 271 H POC Glucose 356 H* 238 H OUTPATIENT ANTIDIABETIC REGIMEN: * n/a * A1c 6% ASSESSMENT: * 66 year old admitted with COVID, started on steroids on admission. Pharmacy consulted for glycemic management as BSGs trending up since being on steroids. No home diabetic medications, A1c indicated pre-DM range * Patient on novolog SSI - insulin needs increasing last couple of days and BSGs rising. Received 22 units of SSI yesterday and BSGs in 300s last evening * Fasting BSG 238 mg/dL - will add NPH to regimen, trial ~0.3 units/kg dose to help with steroids coverage * Will tighten CR to stress of 3 dosing PLAN FOR INPATIENT GLYCEMIC CONTROL: * Hold outpatient oral diabetes medications * Basal insulin * NPH 20 units daily with dexamethasone * Bolus insulin * NovoLog per scale ACHS or Q6hrs while NPO * Goal Range: Low 110 mg/dL - High 140 mg/dL * Correction Factor: 30 mg/dL/unit * Nutritional / Prandial insulin per carb ratio of 1 unit per 10 grams CHO consumed PLAN FOR DISCHARGE: * tbd
[2021-08-21] MEDS ORDERED: INSULIN HUMAN NPH SC SCH (10:15)
[2021-08-21] MEDS: cefTRIAXone SODIUM 1,000 MG in DEXTROSE 5% 50 ML IV SCH (11:08)
[2021-08-21] MEDS: DOXYCYCLINE HYCLATE 100 MG CAP PO SCH ×2 (11:09→20:17)
--- NOTE | 2021-08-21 12:07 | XRay Report ---
XR chest 1V portable CLINICAL HISTORY: COVID COMPARISON STUDY: Chest CT June 14, 2021. Chest radiograph August 16, 2021. FINDINGS: No pneumothorax or pleural effusion is noted. There has been significant progression of ext ensive bilateral airspace opacities, greater within the left lung, since radiographs of August 16. Mild cardiomegaly is noted. There is no evidence for pulmonary edema. IMPRESSION: Significant progression of bilateral airspace opacities suggestive of viral pneumonia. ACT 112: Negative or not required by law. Electronically signed by: Micah Foley M.D. 08/21/2021 12:06 PM
--- NOTE | 2021-08-21 16:19 | Hospitalist Progress Note ---
Date of Service August 21, 2021 Assessment & Plan (1) Pneumonia due to COVID-19 virus: (2) Loose bowel movement: (3) Weakness: (4) Dementia: (5) Hypertension: Plan: COVID pneumonia: symptoms onset on: 08/13/21 CXR: Left perihilar airspace opacity likely represents pneumonia and/or atelectasis/aspiration. Procalcitonin: negative CRP:7.5>13.82>18.34 Continue supplemental oxygen as needed Continue dexamethasone On Lovenox for DVT prophylaxis Encourage to prone Currently on 3 L supplemental oxygen Incentive Spirometry CXR today showed significant progression of bilateral airspace opacities Started empirically on Rocephin, doxycycline for possible bacterial infection Recheck inflammatory markers tomorrow Acute kidney injury Metabolic acidosis Creatinine 1.3 Avoid nephrotoxic agents as able Monitor renal function Gentle IV fluids Diarrhea Likely due to COVID Check stool studies if re occurs Dysphagia Appreciate Speech therapy recommendations Thrombocytopenia No acute bleeding issues Monitor Generalized weakness: Secondary to COVID pneumonia Uses Walker for ambulation at baseline PT/OT HTN: BP slightly elevated Increase Amlodipine 10mg daily Dementia: Seems to be at baseline Continue home medications Reorient frequently DVT Px: Lovenox SQ Code Status Full code Admission and Anticipated Discharge Date Admission Date: August 16, 2021 Subjective Patient is seen and examined at bedside Poor historian due to dementia Admits to having cough and dyspnea Currently on 3 L oxymask Denies any chest pain, dizziness, nausea, abdominal pain Febrile today CXR today showed worsening pneumonia Try to reach patient's son over the phone--no response Review of Systems Review of Systems: All systems reviewed & are unremarkable except as noted in Subjective Physical Exam Physical Exam: Physical Exam: Vitals signs as noted above General Appearance:Moderately built and nourished, no apparent distress Head: normocephalic, Atraumatic Eyes: normal inspection, EOMI Neck: supple, Trachea midline Respiratory/Chest: Decreased breath sounds, B/L crackles Cardiovascular: S1, S2, No murmur Abdomen/GI:Soft, Non tender, Bowel sounds present Extremities/Musculoskeletal:normal inspection, no edema Neurologic/Psych:AA, grossly no focal neurological deficits, +Dementia Skin: normal color, warm Results & Data Results & Data ([facility]) Vital Signs (Past 12 Hours) Vital Signs Temp Pulse Resp BP BP Pulse Ox 08/21/21 15:15 37.6 C H 104 H 22 109/66 92 08/21/21 08:28 36.6 C 65 20 152/64 H 89 L 08/21/21 06:42 36.8 C 08/21/21 06:40 38.8 C H 115 H 20 139/82 88 L Laboratory Results [facility] 08/21/21 06:08 Sodium 144 Potassium 3.6 Chloride 113 H Carbon Dioxide 19 L BUN 56 H D Creatinine 1.30 H D Glucose 271 H Calcium 8.7 (1) Hypertension Hypertension type: other secondary hypertension Qualified Code(s): I15.8 - Other secondary hypertension
[2021-08-21] MEDS: ENOXAPARIN INJ 40 MG/0.4 ML SYR SQ SCH (17:48)
[2021-08-21] MEDS: QUEtiapine FUMARATE 100 MG TABLET PO SCH (20:17)
[2021-08-21] MEDS ORDERED: ALBUT/IPRATROP 3MG/0.5MG NEB 3 ML VIAL NEB STA (23:23)
[2021-08-21] MEDS ORDERED: methylPREDNISolone 20 MG in SYRINGE 0 ML IV NR (23:24)
[2021-08-21] MEDS ORDERED: XOPENEX/ATROVENT 1.25mg/0.5MG NEB COMBO NEB STA (23:24)
[2021-08-21 23:26] LABS: Appearance Urine Cloudy (Clear); Bacteria Urine Automated 1+ (Negative); Bilirubin Urine Negative (Negative); Blood Urine Negative (Negative); Color Urine Dark Yellow; Glucose Urine UA Negative (Negative); Ketones Urine Negative (Negative); Leukocyte Esterase Urine 2+ (Negative); Nitrite Urine Positive (Negative); Protein Urine Negative (Negative); Specific Gravity Urine 1.018 (1.000-1.030); Urobilinogen Urine Negative (Negative); WBC Urine Automated >30 /hpf (0-5)
[2021-08-21] MEDS ORDERED: IPRATROPIUM BROMIDE NEB SOLN 0.02% 2.5 ML VIAL INH ONE (23:30)
[2021-08-21] MEDS ORDERED: LEVALBUTEROL 1.25MG/0.5ML NEB INH ONE (23:30)
[2021-08-21 23:39] LABS: RBC Urine Automated 0-4 /hpf (0-4)
[2021-08-21] MEDS ORDERED: methylPREDNISolone 20 MG in SYRINGE 0 ML IV STA (23:43)
[2021-08-22] MEDS: INSULIN ASPART PER UNIT SC SCH ×6 (00:06→21:15)
[2021-08-22 00:57] LABS: Base Excess ABG -2.4 mEq/L (-9-1.8); HCO3 ABG 20 mmol/L (19-24); Oxygen Saturation ABG 92.7 % (90-95); PCO2 ABG 28 mmHg (35-46); PO2 ABG 61 mmHg (80-95); pH ABG 7.47 (7.35-7.45)
[2021-08-22 00:58] LABS: Allen Test POS (Pos)
[2021-08-22] MEDS ORDERED: ALBUMIN 25% 12.5 GM/50 ML VIAL IV ONE (01:52)
--- NOTE | 2021-08-22 02:40 | Communication Note ---
Date of Service: August 22, 2021 Overnight developments 08/21/21, 11:20 PM Made aware by RN of increasing O2 requirement. Patient very wheezy and with labored breathing. AP Worsening hypoxemic respiratory failure Secondary to severe COVID-19 pneumonia Med telemetry transfer Supplemental O2 Baseline ABG Yadirau-nilsa Gurrola treatment now 08/22/21, 1:50 AM O2 sats 70s on 15 L NRBM as per RN Chest x-ray as per my interpretation progressive bilateral infiltrates Lasix albumin Remdesivir course if patient family agreeable Pulmonary consult if without improvement Patient son (Mr. Kaden Roach) updated of developments and potential for clinical deterioration over the phone. He is agreeable to Remdesivir Rx for demented mother. CODE STATUS deescalated to DNR as per patient son request. Continue medical management. Will relay to AM provider.
[2021-08-22 02:47] LABS: Hematocrit (blood only) 38.4 % (37-47); Mean Corpuscular Hemoglobin 29.9 pg (25-34); Mean Corpuscular Hgb Conc 33.9 g/dL (32-36); Mean Corpuscular Volume 88.3 fL (80-100); Mean Platelet Volume 12.6 fL (7.4-10.4); Platelet Count 61 K/uL (130-400); RDW Coefficient of Variation 13.1 % (11.5-14.5); RDW Standard Deviation 42.5 fL (36.4-46.3); Red Blood Count 4.35 M/uL (4.2-5.4); White Blood Count 4.88 K/uL (4.8-10.8)
[2021-08-22 02:54] LABS: Partial Thromboplastin Ratio 1.3; Partial Thromboplastin Time 33.4 Seconds (21.0-31.0)
[2021-08-22 03:13] LABS: Albumin Level 2.8 gm/dl (3.4-5.0); BUN Creatinine Ratio 50.4 (10-20); Bilirubin,Total 0.7 mg/dl (0.2-1.0); C Reactive Protein 14.5 mg/dl (0-0.5); Calcium 8.6 mg/dl (8.5-10.1); Creatinine Clr Calc Pharmacy 36.8 ml/min; Est GFR (African American) 53.2 ml/min; Est GFR (Non-African American) 45.9 ml/min; Globulin 2.9 gm/dl (2.5-4.0); Magnesium 2.2 mg/dl (1.7-2.4); Potassium 4.2 mmol/L (3.5-5.1); Total Protein 5.7 gm/dl (6.0-8.3)
[2021-08-22 03:23] LABS: Basophils # (auto) 0.01 K/uL (0-0.2); Basophils % (auto) 0.2 %; Immature Granulocytes # (auto) 0.09 K/uL (0.00-0.02); Immature Granulocytes % (auto) 1.8 %; Lymphocytes # (auto) 0.23 K/uL (1.2-3.4); Lymphocytes % (auto) 4.7 %; Monocytes # (auto) 0.16 K/uL (0.11-0.59); Monocytes % (auto) 3.3 %; Neutrophils # (auto) 4.39 K/uL (1.4-6.5)
[2021-08-22] MEDS ORDERED: FUROSEMIDE INJ 20 MG/2 ML VIAL IV ONE (03:30)
[2021-08-22] MEDS: POTASSIUM CHLORIDE / WTR 10 MEQ/100 ML PLCT IV SCH (03:31)
[2021-08-22] MEDS ORDERED: REMDESIVIR 200 MG in SODIUM CHLORIDE 0.9% 210 ML IV ONE (04:00)
[2021-08-22] MEDS: ACETAMINOPHEN 325 MG TAB PO PRN (06:51)
--- NOTE | 2021-08-22 07:47 | XRay Report ---
SINGLE VIEW CHEST CLINICAL HISTORY: Hypoxia. FINDINGS: An AP, portable, upright chest radiograph is compared to study dated 08/21/2021 and correlat ed with chest CT dated 06/14/2021. The examination is degraded by portable technique and patient rota tion. The heart is top normal for projection noting atherosclerotic calcification of the thoracic ao rta. Diffuse multifocal airspace consolidation is unchanged to modestly increased as compared to yest erday. No large pleural effusion or pneumothorax is identified. The skeletal structures are osteopeni c. The bony thorax is grossly intact. IMPRESSION: Multifocal airspace consolidation is unchanged to modestly worsened as compared to yester day. Radiographic follow-up to resolution is recommended. ACT 112: Negative or not required by law. Electronically signed by: Perfecto Herrera M.D. 08/22/2021 7:46 AM
[2021-08-22] MEDS ORDERED: INSULIN HUMAN NPH SC SCH (09:00)
[2021-08-22] MEDS: cefTRIAXone SODIUM 1,000 MG in DEXTROSE 5% 50 ML IV SCH (09:46)
[2021-08-22] MEDS: QUEtiapine FUMARATE 25 MG TABLET PO SCH (09:50)
[2021-08-22] MEDS: POTASSIUM CHLORIDE CRTAB 20 MEQ TABCR PO SCH (09:50)
[2021-08-22] MEDS: amLODIPine BESYLATE 5 MG TAB PO SCH (09:50)
[2021-08-22] MEDS: PANTOprazole 40 MG TAB PO SCH (09:50)
[2021-08-22] MEDS: dexAMETHasone 6 MG in SYRINGE 0 ML IV SCH (09:50)
[2021-08-22] MEDS: DOXYCYCLINE HYCLATE 100 MG CAP PO SCH ×2 (09:51→21:15)
[2021-08-22] MEDS ORDERED: LORazepam 0.5 MG/1 ML VIAL IV ONE (16:17)
--- NOTE | 2021-08-22 17:45 | Hospitalist Progress Note ---
Date of Service August 22, 2021 Assessment & Plan (1) Pneumonia due to COVID-19 virus: (2) Loose bowel movement: (3) Weakness: (4) Dementia: (5) Hypertension: Plan: COVID pneumonia: symptoms onset on: 08/13/21 CXR: Left perihilar airspace opacity likely represents pneumonia and/or atelectasis/aspiration. Repeat CXR:Multifocal airspace consolidation is unchanged to modestly worsened as compared to yesterday. Radiographic follow-up to resolution is recommended. Procalcitonin: negative CRP:7.5>13.82>18.34>14.5 Continue supplemental oxygen as needed Continue dexamethasone Also started on Remdesivir On Lovenox for DVT prophylaxis Encourage to prone Incentive Spirometry Continue Rocephin, doxycycline for possible bacterial infection Currently on high flow oxygen Clinically deteriorating Updated patient's son over the phone. He understands patient is clinically deteriorating. No aggressive measures as per patient's son. Goal is comfort If patient continues to deteriorate, will inform family and discuss goals of care again. Acute kidney injury Metabolic acidosis Creatinine 1.3>1.2 Avoid nephrotoxic agents as able Monitor renal function Received IV fluids Diarrhea Likely due to COVID Check stool studies if re occurs Dysphagia Appreciate Speech therapy recommendations Thrombocytopenia No acute bleeding issues Monitor Generalized weakness: Secondary to COVID pneumonia Uses Walker for ambulation at baseline PT/OT HTN: BP stable Continue Amlodipine Dementia: Continue home medications Reorient frequently DVT Px: Lovenox SQ Code Status Full code Admission and Anticipated Discharge Date Admission Date: August 16, 2021 Subjective Patient is seen and examined at bedside Poor historian due to dementia Patient has been in distress intermittently Updated patient's son over the phone Currently on high flow oxygen Poor appetite Has cough, dyspnea Denies any chest pain, dizziness, nausea, abdominal pain Review of Systems Review of Systems: All systems reviewed & are unremarkable except as noted in Subjective Physical Exam Physical Exam: Physical Exam: Vitals signs as noted above General Appearance:Moderately built and nourished, no apparent distress Head: normocephalic, Atraumatic Eyes: normal inspection, EOMI Neck: supple, Trachea midline Respiratory/Chest: Decreased breath sounds, B/L crackles Cardiovascular: S1, S2, No murmur Abdomen/GI:Soft, Non tender, Bowel sounds present Extremities/Musculoskeletal:normal inspection, no edema Neurologic/Psych:AA, grossly no focal neurological deficits, +Dementia Skin: normal color, warm Results & Data Results & Data ([facility]) Vital Signs (Past 12 Hours) Vital Signs Temp Pulse Pulse Pulse Resp BP BP 08/22/21 17:00 08/22/21 14:28 97 H 23 08/22/21 11:26 36.8 C 94 H 40 H 123/69 08/22/21 09:30 94 H 08/22/21 09:16 99 H 25 H 08/22/21 09:14 37.6 C H 91 H 22 128/73 08/22/21 08:05 37.4 C 08/22/21 07:45 99 H 20 08/22/21 06:42 38.1 C H 102 H 22 149/79 H Pulse Ox 08/22/21 17:00 87 L 08/22/21 14:28 92 08/22/21 11:26 93 08/22/21 09:30 08/22/21 09:16 91 08/22/21 09:14 91 08/22/21 08:05 08/22/21 07:45 99 08/22/21 06:42 94 Laboratory Results Short CBC 08/22/21 Range/Units 02:20 WBC 4.88 (4.8-10.8) K/uL Hgb 13.0 (12.0-16.0) g/dL Hct 38.4 (37-47) % Plt Count 61 L (130-400) K/uL BMP 08/22/21 02:20 Sodium 143 Potassium 4.2 Chloride 115 H Carbon Dioxide 17 L BUN 61 H Creatinine 1.21 H Glucose 203 H Calcium 8.6 Liver Function 08/22/21 Range/Units 02:20 Total Bilirubin 0.7 (0.2-1.0) mg/dl AST 27 (13-39) U/L ALT 49 (7-52) U/L Alkaline Phosphatase 48 (34-104) U/L Albumin 2.8 L (3.4-5.0) gm/dl Urine 08/21/21 Range/Units 23:15 Urine Color Dark Yellow Urine Appearance Cloudy A (Clear) Urine pH 5.0 (4.5-7.5) Ur Specific [place] 1.018 (1.000-1.030) Urine Protein Negative (Negative) Urine Glucose (UA) Negative (Negative) (1) Hypertension Hypertension type: other secondary hypertension Qualified Code(s): I15.8 - Other secondary hypertension
[2021-08-22] MEDS: ENOXAPARIN INJ 40 MG/0.4 ML SYR SQ SCH (17:53)
[2021-08-22] MEDS ORDERED: ACETAMINOPHEN 1000 MG/100 ML IV IV PRN (20:01)
[2021-08-22] MEDS: QUEtiapine FUMARATE 100 MG TABLET PO SCH (21:16)
[2021-08-23] MEDS ORDERED: INSULIN HUMAN NPH SC SCH (09:00)
[2021-08-23 09:28] LABS: Mean Corpuscular Hgb Conc 32.7 g/dL (32-36)
[2021-08-23] MEDS: INSULIN ASPART PER UNIT SC SCH ×4 (09:33→20:01)
[2021-08-23] MEDS: DOXYCYCLINE HYCLATE 100 MG CAP PO SCH ×2 (09:34→19:54)
[2021-08-23] MEDS: amLODIPine BESYLATE 5 MG TAB PO SCH (09:34)
[2021-08-23] MEDS: dexAMETHasone 6 MG in SYRINGE 0 ML IV SCH (09:34)
[2021-08-23] MEDS: cefTRIAXone SODIUM 1,000 MG in DEXTROSE 5% 50 ML IV SCH (09:34)
[2021-08-23] MEDS: POTASSIUM CHLORIDE CRTAB 20 MEQ TABCR PO SCH ×2 (09:35→09:47)
[2021-08-23] MEDS: QUEtiapine FUMARATE 25 MG TABLET PO SCH (09:35)
[2021-08-23] MEDS: PANTOprazole 40 MG TAB PO SCH (09:35)
[2021-08-23 09:59] LABS: Hematocrit (blood only) 44.6 % (37-47); Hemoglobin 14.6 g/dL (12.0-16.0); Mean Corpuscular Hemoglobin 29.6 pg (25-34); Mean Corpuscular Volume 90.3 fL (80-100); RDW Coefficient of Variation 13.8 % (11.5-14.5); RDW Standard Deviation 45.9 fL (36.4-46.3); Red Blood Count 4.94 M/uL (4.2-5.4); White Blood Count 10.27 K/uL (4.8-10.8)
[2021-08-23 10:03] LABS: Platelet Count 79 K/uL (130-400); Platelet Estimate Decreased (Normal)
[2021-08-23 10:09] LABS: Albumin Globulin Ratio 1.1 (0.9-2); Albumin Level 3.1 gm/dl (3.4-5.0); BUN Creatinine Ratio 55.8 (10-20); Bilirubin,Total 0.8 mg/dl (0.2-1.0); Calcium 9.1 mg/dl (8.5-10.1); Creatinine Clr Calc Pharmacy 39.4 ml/min; Est GFR (African American) 57.8 ml/min; Est GFR (Non-African American) 49.9 ml/min; Globulin 2.8 gm/dl (2.5-4.0); Potassium 4.1 mmol/L (3.5-5.1); Total Protein 5.9 gm/dl (6.0-8.3)
[2021-08-23] MEDS ORDERED: WATER IV ONE (11:00)
[2021-08-23] MEDS ORDERED: STERILE IV ONE (11:00)
[2021-08-23] MEDS ORDERED: SODIUM BICARBONATE IV ONE (11:00)
--- NOTE | 2021-08-23 11:16 | Pharmacy Report ---
Pharmacy Glycemic Short Note 2 - Date of Service August 23, 2021 - Glycemic Short BSG Results (Last 24 hours): 08/21/21 08/22/21 08/22/21 16:37 11:34 17:17 Glucose POC Glucose 201 H 259 H 101 H 08/22/21 08/23/21 08/23/21 19:38 07:51 08:45 Glucose 139 H POC Glucose 84 115 H OUTPATIENT ANTIDIABETIC REGIMEN: * None * HbA1c = 6% (08/16/21) ASSESSMENT: 08/23: * Fasting BSG was elevated yesterday so NPH dose was increased. BSGs trended down in the evening to below goal and fasting BSG is much improved today at 115 mg/dL. Will reduce NPH back to previous dose to prevent hypoglycemia. * Will also reduce correction factor today. Patient's appetite remains poor and continues on IV dexamethasone. 08/21: * 66 year old admitted with COVID, started on steroids on admission. Pharmacy consulted for glycemic management as BSGs trending up since being on steroids. No home diabetic medications, A1c indicated pre-DM range * Patient on novolog SSI - insulin needs increasing last couple of days and BSGs rising. Received 22 units of SSI yesterday and BSGs in 300s last evening * Fasting BSG 238 mg/dL - will add NPH to regimen, trial ~0.3 units/kg dose to help with steroids coverage * Will tighten CR to stress of 3 dosing PLAN FOR INPATIENT GLYCEMIC CONTROL: * Basal insulin * NPH 20 units daily with dexamethasone * Bolus insulin * NovoLog per scale ACHS or Q6hrs while NPO * Goal Range: Low 110 mg/dL - High 140 mg/dL * Correction Factor: 15 mg/dL/unit * Nutritional / Prandial insulin per carb ratio of 1 unit per 5 grams CHO consumed PLAN FOR DISCHARGE: * Patient has prediabetes based on HbA1c of 6%. * Continue with lifestyle and dietary management.
[2021-08-23] MEDS: REMDESIVIR 100 MG in SODIUM CHLORIDE 0.9% 230 ML IV SCH (13:29)
--- NOTE | 2021-08-23 17:26 | Hospitalist Progress Note ---
Date of Service August 23, 2021 Assessment & Plan (1) Pneumonia due to COVID-19 virus: (2) Loose bowel movement: (3) Weakness: (4) Dementia: (5) Hypertension: Plan: COVID pneumonia: symptoms onset on: 08/13/21 CXR: Left perihilar airspace opacity likely represents pneumonia and/or atelectasis/aspiration. Repeat CXR:Multifocal airspace consolidation is unchanged to modestly worsened as compared to yesterday. Radiographic follow-up to resolution is recommended. Procalcitonin: negative CRP:7.5>13.82>18.34>14.5 Continue supplemental oxygen as needed Continue dexamethasone Also started on Remdesivir On Lovenox for DVT prophylaxis Encourage to prone Incentive Spirometry Continue Rocephin, doxycycline for possible bacterial infection Clinically deteriorating No aggressive measures as per patient's son. Goal is comfort If patient continues to deteriorate, will inform family and discuss goals of care again. Currently on 40 L, 100% FiO2 high flow oxygen Poor Prognosis Acute kidney injury Metabolic acidosis Creatinine 1.3>1.2 Avoid nephrotoxic agents as able Monitor renal function Received IV fluids Hypernatremia Metabolic acidosis Secondary to poor oral intake Gentle IV fluids Monitor Diarrhea Likely due to COVID Check stool studies if re occurs Dysphagia Appreciate Speech therapy recommendations Thrombocytopenia No acute bleeding issues Monitor Generalized weakness: Secondary to COVID pneumonia Uses Walker for ambulation at baseline PT/OT HTN: BP stable Continue Amlodipine Dementia: Continue home medications Reorient frequently DVT Px: Lovenox SQ Code Status Full code Admission and Anticipated Discharge Date Admission Date: August 16, 2021 Subjective Patient is seen and examined at bedside Poor historian due to dementia Mild respiratory distress during my encounter Sitter at bedside Currently on 40 L, 100% FiO2 Very poor oral intake Mostly nonverbal but awake, alert Poor prognosis Review of Systems Review of Systems: All systems reviewed & are unremarkable except as noted in Subjective Physical Exam Physical Exam: Physical Exam: Vitals signs as noted above General Appearance:Moderately built and nourished, no apparent distress Head: normocephalic, Atraumatic Eyes: normal inspection, EOMI Neck: supple, Trachea midline Respiratory/Chest: Decreased breath sounds, B/L crackles Cardiovascular: S1, S2, No murmur Abdomen/GI:Soft, Non tender, Bowel sounds present Extremities/Musculoskeletal:normal inspection, no edema Neurologic/Psych:AA, grossly no focal neurological deficits, +Dementia Skin: normal color, warm Results & Data Results & Data ([facility]) Vital Signs (Past 12 Hours) Vital Signs Temp Pulse Pulse Resp BP Pulse Ox 08/23/21 15:00 36.8 C 90 24 112/66 90 08/23/21 14:51 93 H 22 90 08/23/21 11:24 36.7 C 105 H 20 119/61 93 08/23/21 11:14 106 H 22 89 L 08/23/21 08:14 104 H 26 H 86 L 08/23/21 07:48 36.5 C 103 H 20 136/75 92 Laboratory Results Short CBC 08/23/21 Range/Units 08:45 WBC 10.27 (4.8-10.8) K/uL Hgb 14.6 (12.0-16.0) g/dL Hct 44.6 (37-47) % Plt Count 79 L (130-400) K/uL BMP 08/23/21 08:45 Sodium 151 H Potassium 4.1 Chloride 119 H Carbon Dioxide 19 L BUN 63 H Creatinine 1.13 Glucose 139 H Calcium 9.1 Liver Function 08/23/21 Range/Units 08:45 Total Bilirubin 0.8 (0.2-1.0) mg/dl AST 47 H (13-39) U/L ALT 49 (7-52) U/L Alkaline Phosphatase 63 (34-104) U/L Albumin 3.1 L (3.4-5.0) gm/dl (1) Hypertension Hypertension type: other secondary hypertension Qualified Code(s): I15.8 - Other secondary hypertension
[2021-08-23] MEDS: ENOXAPARIN INJ 40 MG/0.4 ML SYR SQ SCH (18:37)
[2021-08-23] MEDS: QUEtiapine FUMARATE 100 MG TABLET PO SCH (19:54)
[2021-08-24] MEDS: OLANZapine 10 MG/2.1 ML SDV IM PRN (01:37)
[2021-08-24 07:48] LABS: Mean Corpuscular Hgb Conc 33.3 g/dL (32-36)
[2021-08-24 08:06] LABS: Hematocrit (blood only) 40.3 % (37-47); Hemoglobin 13.4 g/dL (12.0-16.0); Mean Corpuscular Hemoglobin 29.5 pg (25-34); Mean Corpuscular Volume 88.8 fL (80-100); RDW Coefficient of Variation 13.9 % (11.5-14.5); RDW Standard Deviation 45.5 fL (36.4-46.3); Red Blood Count 4.54 M/uL (4.2-5.4); White Blood Count 6.07 K/uL (4.8-10.8)
[2021-08-24] MEDS: INSULIN ASPART PER UNIT SC SCH ×4 (08:18→21:50)
[2021-08-24 08:32] LABS: Albumin Level 2.8 gm/dl (3.4-5.0); BUN Creatinine Ratio 61.1 (10-20); Bilirubin,Total 0.7 mg/dl (0.2-1.0); C Reactive Protein 12.08 mg/dl (0-0.5); Calcium 8.6 mg/dl (8.5-10.1); Est GFR (African American) 48.4 ml/min; Est GFR (Non-African American) 41.7 ml/min; Globulin 2.7 gm/dl (2.5-4.0); Potassium 3.5 mmol/L (3.5-5.1); Total Protein 5.5 gm/dl (6.0-8.3)
[2021-08-24 09:30] LABS: Platelet Count 68 K/uL (130-400)
[2021-08-24] MEDS: dexAMETHasone 6 MG in SYRINGE 0 ML IV SCH (09:47)
[2021-08-24] MEDS: cefTRIAXone SODIUM 1,000 MG in DEXTROSE 5% 50 ML IV SCH (09:47)
[2021-08-24] MEDS: INSULIN HUMAN NPH SC SCH (09:48)
[2021-08-24] MEDS: DOXYCYCLINE HYCLATE 100 MG CAP PO SCH ×2 (09:58→21:50)
[2021-08-24] MEDS: PANTOprazole 40 MG TAB PO SCH (09:59)
[2021-08-24] MEDS: amLODIPine BESYLATE 5 MG TAB PO SCH (09:59)
[2021-08-24] MEDS: POTASSIUM CHLORIDE CRTAB 20 MEQ TABCR PO SCH (09:59)
[2021-08-24] MEDS: QUEtiapine FUMARATE 25 MG TABLET PO SCH (10:00)
[2021-08-24] MEDS: REMDESIVIR 100 MG in SODIUM CHLORIDE 0.9% 230 ML IV SCH (13:03)
--- NOTE | 2021-08-24 14:46 | Pharmacy Report ---
Pharmacy Glycemic Short Note 2 - Date of Service August 24, 2021 - Glycemic Short BSG Results (Last 24 hours): 08/23/21 08/23/21 08/24/21 16:48 20:04 07:13 Glucose 171 H POC Glucose 158 H 176 H 08/24/21 08/24/21 07:53 11:50 Glucose POC Glucose 155 H 191 H OUTPATIENT ANTIDIABETIC REGIMEN: * None * HbA1c = 6% (08/16/21) ASSESSMENT: 08/24: * Received 32 units of insulin yesterday (20 NPH + 12 Novolog). BSGs were acceptable: 293-592-212-176 mg/dL. * Fasting BSG elevated at 155 mg/dL today. Increased NPH slightly today. * No changes to Novolog. 08/23: * Fasting BSG was elevated yesterday so NPH dose was increased. BSGs trended down in the evening to below goal and fasting BSG is much improved today at 115 mg/dL. Will reduce NPH back to previous dose to prevent hypoglycemia. * Will also reduce correction factor today. Patient's appetite remains poor and continues on IV dexamethasone. 08/21: * 66 year old admitted with COVID, started on steroids on admission. Pharmacy consulted for glycemic management as BSGs trending up since being on steroids. No home diabetic medications, A1c indicated pre-DM range * Patient on novolog SSI - insulin needs increasing last couple of days and BSGs rising. Received 22 units of SSI yesterday and BSGs in 300s last evening * Fasting BSG 238 mg/dL - will add NPH to regimen, trial ~0.3 units/kg dose to help with steroids coverage * Will tighten CR to stress of 3 dosing PLAN FOR INPATIENT GLYCEMIC CONTROL: * Basal insulin - increased * NPH 25 units daily with dexamethasone * Bolus insulin * NovoLog per scale ACHS or Q6hrs while NPO * Goal Range: Low 110 mg/dL - High 140 mg/dL * Correction Factor: 15 mg/dL/unit * Nutritional / Prandial insulin per carb ratio of 1 unit per 5 grams CHO consumed PLAN FOR DISCHARGE: * Patient has prediabetes based on HbA1c of 6%. * Continue with lifestyle and dietary management.
--- NOTE | 2021-08-24 14:59 | Hospitalist Progress Note ---
Date of Service August 24, 2021 Assessment & Plan (1) Pneumonia due to COVID-19 virus: Plan: COVID pneumonia: symptoms onset on: 08/13/21 CXR: Left perihilar airspace opacity likely represents pneumonia and/or atelectasis/aspiration. Repeat CXR:Multifocal airspace consolidation is unchanged to modestly worsened as compared to yesterday. Radiographic follow-up to resolution is recommended. Procalcitonin: negative CRP:7.5>13.82>18.34>14.5 Continue supplemental oxygen as needed Continue dexamethasone and Remdesivir On Lovenox for DVT prophylaxis Encourage to prone Incentive Spirometry Continue Rocephin, doxycycline for possible bacterial infection Clinically deteriorating and has been aggressive at times and requiring one-to-one sitter and also physical restraint No aggressive measures as per patient's son. Goal is comfort If patient continues to deteriorate, will inform family and discuss goals of care again. Saturating with high flow oxygen mask Condition has not improved likely to observe for tonight before comfort care can be initiated Generalized weakness: Secondary to COVID pneumonia Uses Walker for ambulation at baseline PT/OT-if her condition improves (2) Loose bowel movement: Plan: Diarrhea Likely due to COVID Check stool studies if re occurs (3) Weakness: (4) Dementia: Plan: Dementia: Continue home medications Reorient frequently (5) Hypertension: Plan: HTN: BP stable Continue Amlodipine Plan: Acute kidney injury Metabolic acidosis Creatinine 1.3>1.2 Avoid nephrotoxic agents as able Monitor renal function-creatinine is elevated to 1.31 with BUN of 80-continue intravenous fluid for now Hypernatremia Metabolic acidosis Secondary to poor oral intake Gentle IV fluids Monitor-remains elevated at 153 Dysphagia Appreciate Speech therapy recommendations Thrombocytopenia No acute bleeding issues Monitor DVT Px: Lovenox SQ Code Status Full code Admission and Anticipated Discharge Date Admission Date: August 16, 2021 Subjective 08/24/2021 The patient was seen and examined in telemetry unit and in the COVID room She has been requiring one-to-one sitter and remains unsteady Denies any significant pain and/or distress Review of Systems Review of Systems: Unobtainable due to cognitive status Physical Exam Physical Exam: Lying in bed with moderate distress due to shortness of breath Constitutional: + ill appearing and average body habitus Eyes: PERRL, conjunctivae normal, anicteric sclerae ENMT: external ear and nose normal, oropharynx normal Neck: trachea midline, no thyromegaly Respiratory: + respiratory distress Auscultation: + diminished lung sounds Cardiovascular: Rate/Rhythm: regular rate and regular rhythm; not tachycardic Heart Sounds: normal S1 and normal S2; no murmur Extremities: no edema Gastrointestinal (Abdomen): Inspection/Auscultation: abdomen not distended Percussion/Palpation: abdomen soft; abdomen nontender Musculoskeletal: No acute arthritis in any joint Neurologic: Alert and awake. Unsteadiness Results & Data Results & Data ([facility]) Vital Signs (Past 12 Hours) Vital Signs Temp Pulse Resp BP BP Pulse Ox 08/24/21 14:37 90 26 H 90 08/24/21 11:32 36.4 C L 102 H 29 H 90 08/24/21 11:29 103 H 24 91 08/24/21 08:15 99 H 28 H 90 08/24/21 07:09 36.7 C 101 H 29 H 126/70 90 08/24/21 04:04 36.9 C 100 H 28 H 108/70 90 Laboratory Results Short CBC 08/24/21 Range/Units 07:13 WBC 6.07 (4.8-10.8) K/uL Hgb 13.4 (12.0-16.0) g/dL Hct 40.3 (37-47) % Plt Count 68 L (130-400) K/uL BMP 08/24/21 07:13 Sodium 153 H Potassium 3.5 Chloride 120 H Carbon Dioxide 21 BUN 80 H Creatinine 1.31 H Glucose 171 H Calcium 8.6 Liver Function 08/24/21 Range/Units 07:13 Total Bilirubin 0.7 (0.2-1.0) mg/dl AST 31 (13-39) U/L ALT 44 (7-52) U/L Alkaline Phosphatase 61 (34-104) U/L Albumin 2.8 L (3.4-5.0) gm/dl Medications Administered Current Inpatient Medications Acetaminophen (Acetaminophen 325 Mg Tab) 650 mg PO Q4H PRN PRN Reason: pain/fever Stop: 09/15/21 17:54 Last Admin: 08/22/21 06:51 Dose: 650 mg Documented by: Acetaminophen (Acetaminophen 1000 Mg/100 Ml Iv) 1,000 mg IV Q8H PRN PRN Reason: pain/fever Stop: 08/25/21 20:00 Last Admin: 08/22/21 21:16 Dose: 1,000 mg Documented by: Amlodipine Besylate (Amlodipine Besylate 5 Mg Tab) 10 mg PO QAM [facility] Stop: 09/20/21 08:59 Last Admin: 08/24/21 09:59 Dose: 10 mg Documented by: Dextrose (Dextrose 50% 50 Ml Syringe) 25 - 50 ml IV UD PRN; Protocol PRN Reason: Hypoglycemia Protocol Stop: 09/15/21 17:54 Doxycycline Hyclate (Doxycycline Hyclate 100 Mg Cap) 100 mg PO BID [facility]OR[facility] Stop: 08/28/21 09:59 Last Admin: 08/24/21 09:58 Dose: 100 mg Documented by: Enoxaparin Sodium (Enoxaparin Inj 40 Mg/0.4 Ml Syr) 40 mg SQ Q24H [facility] Stop: 09/15/21 17:59 Last Admin: 08/23/21 18:37 Dose: 40 mg Documented by: Glucagon (Glucagon For Inj 1 Mg Vial) 1 mg SQ UD PRN; Protocol PRN Reason: Hypoglycemia Protocol Stop: 09/15/21 17:54 Glucose (Glucose 10 Tabs/Tube) 4 - 8 tabs PO UD PRN; Protocol PRN Reason: Hypoglycemia Protocol Stop: 09/15/21 17:54 Glucose (Glucose 40% Gel 15 Gm Tube) 15 - 30 gm PO UD PRN; Protocol PRN Reason: Hypoglycemia Protocol Stop: 09/15/21 17:54 Dexamethasone 6 mg/ Syringe 1.5 mls @ 1 mls/min IV DAILY [facility] Stop: 08/26/21 13:29 Last Admin: 08/24/21 09:47 Dose: 1 mls/min Documented by: Ceftriaxone Sodium 1,000 mg/ (Dextrose) 60 mls @ 100 mls/hr IV DAILY [facility]; Protocol Stop: 08/28/21 09:59 Last Infusion: 08/24/21 10:28 Dose: Infused Documented by: Remdesivir 100 mg/ Sodium (Chloride) 250 mls @ 250 mls/hr IV Q24H [facility] Stop: 08/26/21 12:59 Last Infusion: 08/24/21 14:05 Dose: Infused Documented by: Insulin Aspart (Insulin Aspart Per Unit) 0 units SC ACHS [facility]; Protocol Stop: 09/15/21 17:54 Last Admin: 08/24/21 12:35 Dose: 5 units Documented by: Insulin Human NPH (Insulin Human Nph) 25 units SC DAILY [facility]; Protocol Stop: 09/20/21 10:14 Last Admin: 08/24/21 09:48 Dose: 25 units Documented by: Miscellaneous (Carbohydrates For Hypoglycemia ) 15 - 30 gm PO UD PRN PRN Reason: Hypoglycemia Protocol Stop: 09/15/21 17:54 Miscellaneous Information (Pharmacy Glycemic Mgmt Consult) 1 ea N/A UD PRN PRN Reason: Consult Stop: 09/20/21 09:56 Olanzapine (Olanzapine 10 Mg/2.1 Ml Sdv) 2.5 mg IM Q4H PRN PRN Reason: Anxiety/Agitation Stop: 09/21/21 02:36 Last Admin: 08/24/21 01:37 Dose: 2.5 mg Documented by: Pantoprazole Sodium (Pantoprazole 40 Mg Tab) 40 mg PO DAILY [facility] Stop: 09/16/21 08:59 Last Admin: 08/24/21 09:59 Dose: 40 mg Documented by: Potassium Chloride (Potassium Chloride Crtab 20 Meq Tabcr) 20 meq PO DAILY [facility] Stop: 09/19/21 09:44 Last Admin: 08/24/21 09:59 Dose: 20 meq Documented by: Quetiapine Fumarate (Quetiapine Fumarate 100 Mg Tablet) 100 mg PO HS [facility] Stop: 09/15/21 20:59 Last Admin: 08/23/21 19:54 Dose: 100 mg Documented by: Quetiapine Fumarate (Quetiapine Fumarate 25 Mg Tablet) 25 mg PO DAILYBL [facility] Stop: 09/16/21 10:29 Last Admin: 08/24/21 10:00 Dose: 25 mg Documented by: (1) Hypertension Hypertension type: other secondary hypertension Qualified Code(s): I15.8 - Other secondary hypertension
[2021-08-24] MEDS: ENOXAPARIN INJ 40 MG/0.4 ML SYR SQ SCH (17:44)
[2021-08-24] MEDS: QUEtiapine FUMARATE 100 MG TABLET PO SCH (21:50)
[2021-08-25] MEDS: OLANZapine 10 MG/2.1 ML SDV IM PRN ×2 (04:42→17:50)
[2021-08-25] MEDS: INSULIN ASPART PER UNIT SC SCH ×4 (08:12→21:23)
[2021-08-25] MEDS: cefTRIAXone SODIUM 1,000 MG in DEXTROSE 5% 50 ML IV SCH (09:12)
[2021-08-25] MEDS: dexAMETHasone 6 MG in SYRINGE 0 ML IV SCH (09:13)
[2021-08-25] MEDS: INSULIN HUMAN NPH SC SCH (09:22)
[2021-08-25] MEDS: ACETAMINOPHEN 325 MG TAB PO PRN (09:26)
[2021-08-25] MEDS: PANTOprazole 40 MG TAB PO SCH (09:27)
[2021-08-25] MEDS: DOXYCYCLINE HYCLATE 100 MG CAP PO SCH ×2 (09:28→20:24)
[2021-08-25] MEDS: amLODIPine BESYLATE 5 MG TAB PO SCH (09:28)
[2021-08-25] MEDS: QUEtiapine FUMARATE 25 MG TABLET PO SCH (09:29)
[2021-08-25] MEDS: POTASSIUM CHLORIDE CRTAB 20 MEQ TABCR PO SCH (09:30)
[2021-08-25 10:02] LABS: Albumin Level 2.6 gm/dl (3.4-5.0); BUN Creatinine Ratio 61.6 (10-20); Bilirubin,Total 0.7 mg/dl (0.2-1.0); Calcium 8.4 mg/dl (8.5-10.1); Creatinine Clr Calc Pharmacy 32.3 ml/min; Est GFR (African American) 45.4 ml/min; Est GFR (Non-African American) 39.2 ml/min; Globulin 2.6 gm/dl (2.5-4.0); Potassium 3.6 mmol/L (3.5-5.1); Total Protein 5.2 gm/dl (6.0-8.3)
[2021-08-25] MEDS: REMDESIVIR 100 MG in SODIUM CHLORIDE 0.9% 230 ML IV SCH (12:38)
--- NOTE | 2021-08-25 12:47 | Pharmacy Report ---
Pharmacy Glycemic Short Note 2 - Date of Service August 25, 2021 - Glycemic Short BSG Results (Last 24 hours): 08/24/21 08/24/21 08/25/21 16:57 20:05 07:27 Glucose 97 POC Glucose 102 H 188 H 08/25/21 08/25/21 07:59 12:26 Glucose POC Glucose 94 106 H OUTPATIENT ANTIDIABETIC REGIMEN: * None * HbA1c = 6% (08/16/21) ASSESSMENT: 08/25/21: * BSGs have been trending down over the past day or so. * Pt is still receiving IV dexamethasone, but has been eating very little. * Novolog parameters loosened today. Will reduce NPH dose tomorrow morning. 08/24: * Received 32 units of insulin yesterday (20 NPH + 12 Novolog). BSGs were acceptable: [phone] mg/dL. * Fasting BSG elevated at 155 mg/dL today. Increased NPH slightly today. * No changes to Novolog. 08/23: * Fasting BSG was elevated yesterday so NPH dose was increased. BSGs trended down in the evening to below goal and fasting BSG is much improved today at 115 mg/dL. Will reduce NPH back to previous dose to prevent hypoglycemia. * Will also reduce correction factor today. Patient's appetite remains poor and continues on IV dexamethasone. 08/21: * 66 year old admitted with COVID, started on steroids on admission. Pharmacy consulted for glycemic management as BSGs trending up since being on steroids. No home diabetic medications, A1c indicated pre-DM range * Patient on novolog SSI - insulin needs increasing last couple of days and BSGs rising. Received 22 units of SSI yesterday and BSGs in 300s last evening * Fasting BSG 238 mg/dL - will add NPH to regimen, trial ~0.3 units/kg dose to help with steroids coverage * Will tighten CR to stress of 3 dosing PLAN FOR INPATIENT GLYCEMIC CONTROL: * Basal insulin - * NPH 25 units daily with dexamethasone * Reduce NPH to 20 units daily tomorrow * Bolus insulin * NovoLog per scale ACHS or Q6hrs while NPO * Goal Range: Low 110 mg/dL - High 140 mg/dL * Correction Factor: 20 mg/dL/unit * Nutritional / Prandial insulin per carb ratio of 1 unit per 7 grams CHO consumed PLAN FOR DISCHARGE: * Patient has prediabetes based on HbA1c of 6%. * Continue with lifestyle and dietary management.
--- NOTE | 2021-08-25 14:26 | XRay Report ---
XR chest 1V portable HISTORY: 66 years-old Female Covid Pneumonia acute shortness of breath. COVID Positive. COMPARISON: Chest radiograph 08/22/2021 TECHNIQUE: Semierect supine AP view of the chest FINDINGS: Cardiac silhouette is enlarged. Small pleural effusions. Progressively worsened extensive bilateral a irspace opacities, left greater than right. No pneumothorax. The bones appear grossly intact. IMPRESSION: 1. Progressively worsened extensive airspace opacities suggestive of multifocal pneumonia. 2. Cardiomegaly. ACT 112: Negative or not required by law. The above report was generated using voice recognition software. It may contain grammatical, syntax o r spelling errors. Electronically signed by: Pio Oreilly M.D. 08/25/2021 2:24 PM
--- NOTE | 2021-08-25 14:59 | Hospitalist Progress Note ---
Date of Service August 25, 2021 Assessment & Plan (1) Pneumonia due to COVID-19 virus: Plan: COVID pneumonia: symptoms onset on: 08/13/21 CXR: Left perihilar airspace opacity likely represents pneumonia and/or atelectasis/aspiration. Repeat CXR:Multifocal airspace consolidation is unchanged to modestly worsened as compared to yesterday. Radiographic follow-up to resolution is recommended. Procalcitonin: negative CRP:7.5>13.82>18.34>14.5 Continue supplemental oxygen as needed Continue dexamethasone and Remdesivir On Lovenox for DVT prophylaxis Encourage to prone Incentive Spirometry Continue Rocephin, doxycycline for possible bacterial infection Clinically deteriorating and has been aggressive at times and requiring one-to-one sitter and also physical restraint No aggressive measures as per patient's son. Goal is comfort If patient continues to deteriorate, will inform family and discuss goals of care again. Saturating with high flow oxygen mask Condition has not improved likely to observe for tonight before comfort care can be initiate Condition has been deteriorating and the repeat chest x-ray showed increasing opacity We will discuss with the son again today and possible comfort care from tomorrow Generalized weakness: Secondary to COVID pneumonia Uses Walker for ambulation at baseline PT/OT-if her condition improves (2) Loose bowel movement: Plan: Diarrhea Likely due to COVID Check stool studies if re occurs (3) Weakness: (4) Dementia: Plan: Dementia: Continue home medications Now has acute delirium with occasional aggressiveness (5) Hypertension: Plan: HTN: BP stable Continue Amlodipine Plan: Acute kidney injury Metabolic acidosis Creatinine 1.3>1.2 Avoid nephrotoxic agents as able Monitor renal function-creatinine is elevated to 1.31 with BUN of 80-continue intravenous fluid for now Hypernatremia Metabolic acidosis Secondary to poor oral intake Gentle IV fluids Monitor-remains elevated at 153 Creatinine has been increasing and so his sodium Dysphagia Appreciate Speech therapy recommendations Thrombocytopenia No acute bleeding issues Monitor DVT Px: Lovenox SQ Code Status DNR/DNI We will discuss with the son and possible transfer to comfort care Admission and Anticipated Discharge Date Admission Date: August 16, 2021 Subjective 08/24/2021 The patient was seen and examined in telemetry unit and in the COVID room She has been requiring one-to-one sitter and remains unsteady Denies any significant pain and/or distress 08/25/2021 The patient was seen and examined in telemetry unit and in the COVID room She has been deteriorating Has not been keeping up lines and oxygen and is requiring restraint and one-to-one sitter Review of Systems Review of Systems: Unobtainable due to cognitive status Physical Exam Physical Exam: Lying in bed with moderate distress due to shortness of breath Constitutional: + ill appearing and average body habitus Eyes: PERRL, conjunctivae normal, anicteric sclerae ENMT: external ear and nose normal, oropharynx normal Neck: trachea midline, no thyromegaly Respiratory: + respiratory distress Auscultation: + diminished lung sounds Cardiovascular: Rate/Rhythm: regular rate and regular rhythm; not tachycardic Heart Sounds: normal S1 and normal S2; no murmur Extremities: no edema Gastrointestinal (Abdomen): Inspection/Auscultation: abdomen not distended Percussion/Palpation: abdomen soft; abdomen nontender Musculoskeletal: No acute arthritis in any joint Neurologic: Alert and awake. Acute confusion with agitation Results & Data Results & Data ([facility]) Vital Signs (Past 12 Hours) Vital Signs Temp Pulse Resp BP Pulse Ox 08/25/21 11:28 89 24 92 08/25/21 11:04 36.7 C 94 H 22 103/66 93 08/25/21 08:20 92 H 26 H 90 08/25/21 07:17 36.5 C 101 H 20 106/68 90 08/25/21 03:16 101 H 26 H 90 Laboratory Results [facility] 08/25/21 07:27 Sodium 161 H* Potassium 3.6 Chloride 129 H Carbon Dioxide 23 BUN 85 H Creatinine 1.38 H Glucose 97 Calcium 8.4 L Liver Function 08/25/21 Range/Units 07:27 Total Bilirubin 0.7 (0.2-1.0) mg/dl AST 54 H (13-39) U/L ALT 51 (7-52) U/L Alkaline Phosphatase 73 (34-104) U/L Albumin 2.6 L (3.4-5.0) gm/dl Medications Administered Current Inpatient Medications Acetaminophen (Acetaminophen 325 Mg Tab) 650 mg PO Q4H PRN PRN Reason: pain/fever Stop: 09/15/21 17:54 Last Admin: 08/25/21 09:26 Dose: 650 mg Documented by: Acetaminophen (Acetaminophen 1000 Mg/100 Ml Iv) 1,000 mg IV Q8H PRN PRN Reason: pain/fever Stop: 08/25/21 20:00 Last Admin: 08/22/21 21:16 Dose: 1,000 mg Documented by: Amlodipine Besylate (Amlodipine Besylate 5 Mg Tab) 10 mg PO QAM [facility] Stop: 09/20/21 08:59 Last Admin: 08/25/21 09:28 Dose: 10 mg Documented by: Dextrose (Dextrose 50% 50 Ml Syringe) 25 - 50 ml IV UD PRN; Protocol PRN Reason: Hypoglycemia Protocol Stop: 09/15/21 17:54 Doxycycline Hyclate (Doxycycline Hyclate 100 Mg Cap) 100 mg PO BID [facility] Stop: 08/28/21 09:59 Last Admin: 08/25/21 09:28 Dose: 100 mg Documented by: Enoxaparin Sodium (Enoxaparin Inj 40 Mg/0.4 Ml Syr) 40 mg SQ Q24H [facility] Stop: 09/15/21 17:59 Last Admin: 08/24/21 17:44 Dose: 40 mg Documented by: Glucagon (Glucagon For Inj 1 Mg Vial) 1 mg SQ UD PRN; Protocol PRN Reason: Hypoglycemia Protocol Stop: 09/15/21 17:54 Glucose (Glucose 10 Tabs/Tube) 4 - 8 tabs PO UD PRN; Protocol PRN Reason: Hypoglycemia Protocol Stop: 09/15/21 17:54 Glucose (Glucose 40% Gel 15 Gm Tube) 15 - 30 gm PO UD PRN; Protocol PRN Reason: Hypoglycemia Protocol Stop: 09/15/21 17:54 Dexamethasone 6 mg/ Syringe 1.5 mls @ 1 mls/min IV DAILY [facility] Stop: 08/26/21 13:29 Last Admin: 08/25/21 09:13 Dose: 1 mls/min Documented by: Ceftriaxone Sodium 1,000 mg/ (Dextrose) 60 mls @ 100 mls/hr IV DAILY [facility]; Protocol Stop: 08/28/21 09:59 Last Infusion: 08/25/21 10:02 Dose: Infused Documented by: Remdesivir 100 mg/ Sodium (Chloride) 250 mls @ 250 mls/hr IV Q24H [facility] Stop: 08/26/21 12:59 Last Infusion: 08/25/21 13:44 Dose: Infused Documented by: Insulin Aspart (Insulin Aspart Per Unit) 0 units SC ACHS [facility]; Protocol Stop: 09/15/21 17:54 Last Admin: 08/25/21 12:30 Dose: Not Given Documented by: Insulin Human NPH (Insulin Human Nph) 20 units SC DAILY [facility]; Protocol Stop: 09/25/21 08:59 Miscellaneous (Carbohydrates For Hypoglycemia ) 15 - 30 gm PO UD PRN PRN Reason: Hypoglycemia Protocol Stop: 09/15/21 17:54 Miscellaneous Information (Pharmacy Glycemic Mgmt Consult) 1 ea N/A UD PRN PRN Reason: Consult Stop: 09/20/21 09:56 Olanzapine (Olanzapine 10 Mg/2.1 Ml Sdv) 2.5 mg IM Q4H PRN PRN Reason: Anxiety/Agitation Stop: 09/21/21 02:36 Last Admin: 08/25/21 04:42 Dose: 2.5 mg Documented by: Pantoprazole Sodium (Pantoprazole 40 Mg Tab) 40 mg PO DAILY [facility] Stop: 09/16/21 08:59 Last Admin: 08/25/21 09:27 Dose: 40 mg Documented by: Potassium Chloride (Potassium Chloride Crtab 20 Meq Tabcr) 20 meq PO DAILY [facility] Stop: 09/19/21 09:44 Last Admin: 08/25/21 09:30 Dose: 20 meq Documented by: Quetiapine Fumarate (Quetiapine Fumarate 100 Mg Tablet) 100 mg PO HS [facility] Stop: 09/15/21 20:59 Last Admin: 08/24/21 21:50 Dose: 100 mg Documented by: Quetiapine Fumarate (Quetiapine Fumarate 25 Mg Tablet) 25 mg PO DAILYBL [facility] Stop: 09/16/21 10:29 Last Admin: 08/25/21 09:29 Dose: 25 mg Documented by: (1) Hypertension Hypertension type: other secondary hypertension Qualified Code(s): I15.8 - Other secondary hypertension
[2021-08-25] MEDS: ENOXAPARIN INJ 40 MG/0.4 ML SYR SQ SCH (17:50)
[2021-08-25] MEDS: QUEtiapine FUMARATE 100 MG TABLET PO SCH (20:24)
[2021-08-26] MEDS: OLANZapine 10 MG/2.1 ML SDV IM PRN (05:14)
[2021-08-26] MEDS: INSULIN ASPART PER UNIT SC SCH ×3 (08:32→19:29)
[2021-08-26] MEDS ORDERED: INSULIN HUMAN NPH SC SCH (09:00)
[2021-08-26] MEDS: cefTRIAXone SODIUM 1,000 MG in DEXTROSE 5% 50 ML IV SCH (09:03)
[2021-08-26] MEDS: dexAMETHasone 6 MG in SYRINGE 0 ML IV SCH (09:03)
[2021-08-26] MEDS: ACETAMINOPHEN 325 MG TAB PO PRN (09:09)
[2021-08-26] MEDS: DOXYCYCLINE HYCLATE 100 MG CAP PO SCH ×2 (09:10→20:11)
[2021-08-26] MEDS: amLODIPine BESYLATE 5 MG TAB PO SCH (09:12)
[2021-08-26] MEDS: PANTOprazole 40 MG TAB PO SCH (09:13)
[2021-08-26] MEDS: POTASSIUM CHLORIDE CRTAB 20 MEQ TABCR PO SCH (09:19)
[2021-08-26] MEDS ORDERED: HYDROmorphone INJ 0.5 MG/0.5 ML SYR IV PRN (09:51)
[2021-08-26] MEDS: QUEtiapine FUMARATE 25 MG TABLET PO SCH (10:37)
[2021-08-26] MEDS: REMDESIVIR 100 MG in SODIUM CHLORIDE 0.9% 230 ML IV SCH (11:46)
[2021-08-26] MEDS ORDERED: MoRPHine SULFATE 5 MG/0.25 ML UDP PO PRN (16:02)
[2021-08-26] MEDS ORDERED: ONDANSETRON 4 MG OD TAB SL PRN (16:02)
[2021-08-26] MEDS ORDERED: haloperidoL 1 MG TAB PO PRN (16:02)
[2021-08-26] MEDS ORDERED: MoRPHine SULFATE 2 MG/ML CARP IV PRN (16:02)
[2021-08-26] MEDS ORDERED: ONDANSETRON INJ 2 MG/ML 2 ML VIAL IV PRN (16:02)
[2021-08-26] MEDS ORDERED: ATROPINE SULFATE 1% OP SOLN 5 ML BTL SL PRN (16:02)
[2021-08-26] MEDS ORDERED: LORazepam 0.5 MG TAB PO PRN (16:02)
--- NOTE | 2021-08-26 16:11 | Hospitalist Progress Note ---
Date of Service August 26, 2021 Assessment & Plan (1) Pneumonia due to COVID-19 virus: Plan: COVID pneumonia: symptoms onset on: 08/13/21 CXR: Left perihilar airspace opacity likely represents pneumonia and/or atelectasis/aspiration. Repeat CXR:Multifocal airspace consolidation is unchanged to modestly worsened as compared to yesterday. Radiographic follow-up to resolution is recommended. Procalcitonin: negative CRP:7.5>13.82>18.34>14.5 Continue supplemental oxygen as needed Continue dexamethasone and Remdesivir On Lovenox for DVT prophylaxis Encourage to prone Incentive Spirometry Continue Rocephin, doxycycline for possible bacterial infection Clinically deteriorating and has been aggressive at times and requiring one-to-one sitter and also physical restraint No aggressive measures as per patient's son. Goal is comfort If patient continues to deteriorate, will inform family and discuss goals of care again. Saturating with high flow oxygen mask Condition has not improved likely to observe for tonight before comfort care can be initiate Condition has been deteriorating and the repeat chest x-ray showed increasing opacity We will discuss with the son again today and possible comfort care from tomorrow Condition has been deteriorating and going towards multiorgan failure Discussed with the son in detail and she will be put for comfort care only from this afternoon Generalized weakness: Secondary to COVID pneumonia Uses Walker for ambulation at baseline PT/OT-if her condition improves (2) Loose bowel movement: Plan: Diarrhea Likely due to COVID Check stool studies if re occurs (3) Weakness: (4) Dementia: Plan: Dementia: Continue home medications Now has acute delirium with occasional aggressiveness (5) Hypertension: Plan: HTN: BP stable Continue Amlodipine Plan: Acute kidney injury Metabolic acidosis Creatinine 1.3>1.2 Avoid nephrotoxic agents as able Monitor renal function-creatinine is elevated to 1.31 with BUN of 80-continue intravenous fluid for now Hypernatremia Metabolic acidosis Secondary to poor oral intake Gentle IV fluids Monitor-remains elevated at 153 Creatinine has been increasing and so his sodium Has been getting worse with sodium at 161 today Dysphagia Appreciate Speech therapy recommendations Thrombocytopenia No acute bleeding issues Monitor DVT Px: Lovenox SQ Code Status DNR/DNI We will put her for comfort care only Admission and Anticipated Discharge Date Admission Date: August 16, 2021 Subjective 08/24/2021 The patient was seen and examined in telemetry unit and in the COVID room She has been requiring one-to-one sitter and remains unsteady Denies any significant pain and/or distress 08/25/2021 The patient was seen and examined in telemetry unit and in the COVID room She has been deteriorating Has not been keeping up lines and oxygen and is requiring restraint and one-to-one sitter 08/26/2021 The patient was seen and examined in telemetry unit and in the COVPA room She has been deteriorating for the last 2 to 3 days Remains shortness of breath and requiring very high flow oxygen Has been eating and drinking and electrolytes and kidney function has been worsening Review of Systems Review of Systems: Unobtainable due to cognitive status Physical Exam Physical Exam: Lying in bed with moderate distress due to shortness of breath Constitutional: + ill appearing and average body habitus Eyes: PERRL, conjunctivae normal, anicteric sclerae ENMT: external ear and nose normal, oropharynx normal Neck: trachea midline, no thyromegaly Respiratory: + respiratory distress Auscultation: + diminished lung sounds Cardiovascular: Rate/Rhythm: regular rate and regular rhythm; not tachycardic Heart Sounds: normal S1 and normal S2; no murmur Extremities: no edema Gastrointestinal (Abdomen): Inspection/Auscultation: abdomen not distended Percussion/Palpation: abdomen soft; abdomen nontender Neurologic: No meaningful conversation Results & Data Results & Data ([facility]) Vital Signs (Past 12 Hours) Vital Signs Temp Pulse Resp BP Pulse Ox 08/26/21 15:18 90 22 88 L 08/26/21 15:09 36.7 C 92 H 24 96/55 L 88 L 08/26/21 11:32 99 H 22 90 08/26/21 10:59 36.7 C 98 H 22 106/63 89 L 08/26/21 07:35 103 H 26 H 92 08/26/21 06:58 36.7 C 101 H 24 123/69 94 Medications Administered Current Inpatient Medications Acetaminophen (Acetaminophen 325 Mg Tab) 650 mg PO Q4H PRN PRN Reason: pain/fever Stop: 09/15/21 17:54 Last Admin: 08/26/21 09:09 Dose: 650 mg Documented by: Amlodipine Besylate (Amlodipine Besylate 5 Mg Tab) 10 mg PO QAM [facility] Stop: 09/20/21 08:59 Last Admin: 08/26/21 09:12 Dose: 10 mg Documented by: Atropine Sulfate (Atropine Sulfate 1% Op Soln 5 Ml Btl) 4 drops SL Q1H PRN PRN Reason: Secretions or pulm congestion Stop: 09/25/21 16:01 Dextrose (Dextrose 50% 50 Ml Syringe) 25 - 50 ml IV UD PRN; Protocol PRN Reason: Hypoglycemia Protocol Stop: 09/15/21 17:54 Doxycycline Hyclate (Doxycycline Hyclate 100 Mg Cap) 100 mg PO BID [facility] Stop: 08/28/21 09:59 Last Admin: 08/26/21 09:10 Dose: 100 mg Documented by: Enoxaparin Sodium (Enoxaparin Inj 40 Mg/0.4 Ml Syr) 40 mg SQ Q24H [facility] Stop: 09/15/21 17:59 Last Admin: 08/25/21 17:50 Dose: 40 mg Documented by: Glucagon (Glucagon For Inj 1 Mg Vial) 1 mg SQ UD PRN; Protocol PRN Reason: Hypoglycemia Protocol Stop: 09/15/21 17:54 Glucose (Glucose 10 Tabs/Tube) 4 - 8 tabs PO UD PRN; Protocol PRN Reason: Hypoglycemia Protocol Stop: 09/15/21 17:54 Glucose (Glucose 40% Gel 15 Gm Tube) 15 - 30 gm PO UD PRN; Protocol PRN Reason: Hypoglycemia Protocol Stop: 09/15/21 17:54 Haloperidol (Haloperidol 1 Mg Tab) 1 mg PO Q4H PRN PRN Reason: Nausea &/or Vomiting Stop: 09/25/21 16:01 Hydromorphone HCl (Hydromorphone Inj 0.5 Mg/0.5 Ml Syr) 0.25 mg IV Q6H PRN PRN Reason: Pain Stop: 09/09/21 09:50 Last Admin: 08/26/21 10:35 Dose: 0.25 mg Documented by: Dexamethasone 6 mg/ Syringe 1.5 mls @ 1 mls/min IV DAILY [facility] Stop: 08/31/21 13:29 Last Admin: 08/26/21 09:03 Dose: 1 mls/min Documented by: Ceftriaxone Sodium 1,000 mg/ (Dextrose) 60 mls @ 100 mls/hr IV DAILY [facility]; Protocol Stop: 08/28/21 09:59 Last Infusion: 08/26/21 10:27 Dose: Infused Documented by: Lorazepam (Ativan) 0.5 mg in 1 mls @ 1 mls/min IV Q4H PRN PRN Reason: Anxiety/Agitation Stop: 09/25/21 16:01 Insulin Aspart (Insulin Aspart Per Unit) 0 units SC ACHS [facility]; Protocol Stop: 09/15/21 17:54 Last Admin: 08/26/21 12:25 Dose: 3 units Documented by: Insulin Human NPH (Insulin Human Nph) 20 units SC DAILY [facility]; Protocol Stop: 09/25/21 08:59 Last Admin: 08/26/21 08:39 Dose: 20 units Documented by: Lorazepam (Lorazepam 0.5 Mg Tab) 0.5 mg PO Q4H PRN PRN Reason: Anxiety/Agitation Stop: 09/25/21 16:01 Miscellaneous (Carbohydrates For Hypoglycemia ) 15 - 30 gm PO UD PRN PRN Reason: Hypoglycemia Protocol Stop: 09/15/21 17:54 Miscellaneous Information (Pharmacy Glycemic Mgmt Consult) 1 ea N/A UD PRN PRN Reason: Consult Stop: 09/20/21 09:56 Morphine Sulfate (Morphine Sulfate 5 Mg/0.25 Ml Udp) 5 mg PO Q3H PRN PRN Reason: Pain or Respiratory Distress Stop: 09/09/21 16:01 Morphine Sulfate (Morphine Sulfate 2 Mg/Ml Carp) 2 mg IV Q4H PRN PRN Reason: Pain or Respiratory Distress Stop: 09/09/21 16:01 Olanzapine (Olanzapine 10 Mg/2.1 Ml Sdv) 2.5 mg IM Q4H PRN PRN Reason: Anxiety/Agitation Stop: 09/21/21 02:36 Last Admin: 08/26/21 05:14 Dose: 2.5 mg Documented by: Ondansetron HCl (Ondansetron Inj 2 Mg/Ml 2 Ml Vial) 4 mg IV Q4H PRN PRN Reason: Nausea &/or Vomiting Stop: 09/25/21 16:01 Ondansetron HCl (Ondansetron 4 Mg Od Tab) 4 mg SL Q4H PRN PRN Reason: Nausea &/or Vomiting Stop: 09/25/21 16:01 Pantoprazole Sodium (Pantoprazole 40 Mg Tab) 40 mg PO DAILY [facility] Stop: 09/16/21 08:59 Last Admin: 08/26/21 09:13 Dose: 40 mg Documented by: Potassium Chloride (Potassium Chloride Crtab 20 Meq Tabcr) 20 meq PO DAILY [facility] Stop: 09/19/21 09:44 Last Admin: 08/26/21 09:19 Dose: 20 meq Documented by: Quetiapine Fumarate (Quetiapine Fumarate 100 Mg Tablet) 100 mg PO [facility] Stop: 09/15/21 20:59 Last Admin: 08/25/21 20:24 Dose: 100 mg Documented by: Quetiapine Fumarate (Qu[facility]apine [facility]umarate 25 Mg Tablet) [facility] Stop: 09/16/21 10:29 Last Admin: 08/26/21 10:37 Dose: 25 mg Documented by: (1) Hypertension Hypertension type: other secondary hypertension Qualified Code(s): I15.8 - Other secondary hypertension
[2021-08-26] MEDS ORDERED: Nursing to Pharmacy Communication SCH (17:30)
[2021-08-26] MEDS: LORazepam 0.5 MG/1 ML VIAL IV PRN ×2 (18:18→23:35)
[2021-08-26] MEDS: QUEtiapine FUMARATE 100 MG TABLET PO SCH (20:11)
[2021-08-26] MEDS ORDERED: MoRPHine SULFATE 2 MG/ML CARP IV STA (20:27)
[2021-08-26] MEDS: MoRPHine SULFATE 2 MG/ML CARP IV PRN (23:35)
[2021-08-27] MEDS: MoRPHine SULFATE 2 MG/ML CARP IV PRN (02:14)
[2021-08-27] MEDS: LORazepam 0.5 MG/1 ML VIAL IV PRN (02:30)
--- NOTE | 2021-08-27 09:35 | Death Pronouncement Note ---
Date of Service August 27, 2021 Pronouncement Note Admission Date August 16, 2021 Date and Time of Date of : 08/27/21 Time of : 05:45 Additional Data Confirmation of : no pulse, no respirations, no heart sounds and pupils fixed and dilated Family: contacted Attending physician: Yuniel Jones MD
--- NOTE | 2021-08-27 16:53 | Discharge Summary ---
Date of Service August 27, 2021 Admission HPI Per Admitting Provider Pt is a 66 y/o F with hx of Dementia (likely Lewy body dementia), HTN, LE edema brought in by her son. Per son, pt has been having dry cough for 3 months, but 2-3 days ago she started to have fatigue, decreased appetite and generalized weakness. Denied any slur speech, fall or syncope. Today morning per son, pt had a large loose BM and it was black in colour but denied any blood, abd pain, N/V. -Per son, pts dementia has been getting worse. She continues to have hallucination. -At baseline she is AAOx0 to AAOx1, walks with walker. [place] currently [place] [id number] [place] -pt got her first COVID vaccine about 1 month ago Admission Exam Per Admitting Provider Physical Exam: General:.NAD, well developed, well nourished, average body habitus HEENT:.Normocephalic and atraumatic, Normal Conjunctiva, EOMI, Sclera is non- icteric Lungs:.overall good air entry b/l, b/l lower lobe rales,no wheezing Heart:.Normal S1, S2, no murmur Abdominal:.ND, Soft, NT MSK/Neuro:.CN II-XII intact, PERRLA, EOMI, moved her extremities equally,No legs edema Psych:AAOx0, pt takes time to responds to questions & follows command Principal Diagnosis Pneumonia due to Covid 19 Virus Infection,Covid 19 virus infection Dementia Discharge Exam The patient 1 08/27/2021 at 054 5 hours Discharge Data Allergies Allergy/AdvReac Type Severity Reaction Status Date / Time No Known Allergies Allergy Mild Unverified 08/16/21 12:10 Consultations 08/16/21 11:37 ED Decision to Admit Stat Hospital Course (1) Pneumonia due to COVID-19 virus: COVID pneumonia: symptoms onset on: 08/13/21 CXR: Left perihilar airspace opacity likely represents pneumonia and/or atelectasis/aspiration. Repeat CXR:Multifocal airspace consolidation is unchanged to modestly worsened as compared to yesterday. Radiographic follow-up to resolution is recommended. Procalcitonin: negative CRP:7.5>13.82>18.34>14.5 Continue supplemental oxygen as needed Continue dexamethasone and Remdesivir On Lovenox for DVT prophylaxis Encourage to prone Incentive Spirometry Continue Rocephin, doxycycline for possible bacterial infection Clinically deteriorating and has been aggressive at times and requiring one-to-one sitter and also physical restraint No aggressive measures as per patient's son. Goal is comfort If patient continues to deteriorate, will inform family and discuss goals of care again. Saturating with high flow oxygen mask Condition has not improved likely to observe for tonight before comfort care can be initiate Condition has been deteriorating and the repeat chest x-ray showed increasing opacity We will discuss with the son again today and possible comfort care from tomorrow Condition has been deteriorating and going towards multiorgan failure Discussed with the son in detail and she will be put for comfort care only from this afternoon Generalized weakness: Secondary to COVID pneumonia Uses Walker for ambulation at baseline PT/OT-if her condition improves (2) Loose bowel movement: Diarrhea Likely due to COVID Check stool studies if re occurs (3) Weakness: (4) Dementia: Dementia: Continue home medications Now has acute delirium with occasional aggressiveness (5) Hypertension: HTN: BP stable Continue Amlodipine Acute kidney injury Metabolic acidosis Creatinine 1.3>1.2 Avoid nephrotoxic agents as able Monitor renal function-creatinine is elevated to 1.31 with BUN of 80-continue intravenous fluid for now Hypernatremia Metabolic acidosis Secondary to poor oral intake Gentle IV fluids Monitor-remains elevated at 153 Creatinine has been increasing and so his sodium Has been getting worse with sodium at 161 today Dysphagia Appreciate Speech therapy recommendations Thrombocytopenia No acute bleeding issues Monitor DVT Px: Lovenox SQ Code Status DNR/DNI We will put her for comfort care only Total Time Total Time Spent Total Time Spent (In Minutes): 20 minutes Discharge Plan Discharge Items Patient Disposition: Discharge Diagnosis: Pneumonia Covid 19 Virus Infection,Covid 19 Virus Infection,Dementia Other Date/Time: 08/27/21 06:38
== END 2021-08-27 06:38 | disposition expired | DRG 177 ==
LOC: ED 09:19 → EDINP 11:52 → SUATTDRO 11:52 → EDINP 14:52 → 2W 08-18 18:39 → 2S 08-22 09:29